=== PATIENT | female | born 1955 | race Caucasian/White ===

== ENCOUNTER 2018-06-17 02:32 | Outpatient (CLI) | payer MEDICAID, SELFPAY ==
[2018-06-17 10:44] LABS: HCT 38.1 % (36.0-46.0); HGB 12.6 g/dL (12.0-15.5); Mean Corp. HGB Concentration 33.1 g/dL (32.0-36.0); Mean Corpuscular Hemoglobin 30.6 pg (27.0-33.0); Mean Corpuscular Volume 92.5 fL (80-95); Mean Platelet Volume 10.8 fL (8.0-11.0); Platelet Count 163 x1000/uL (130-400); RBC 4.12 m/cumm (4.00-5.20); RBC Distribution Width 12.4 % (11.7-14.6); White Blood Cell Count 4.14 k/cumm (4.4-10.8)
[2018-06-17 11:01] LABS: VALPROIC ACID 33.1 ug/mL (50-100)
[2018-06-17 11:55] LABS: ALT 25 U/L (12-78); AST 22 U/L (15-37); Albumin 3.7 g/dL (3.4-5.0); Alkaline Phosphatase 86 U/L (46-116); Anion Gap 6.5 mmol/L (3-11); BUN 13 mg/dL (7-18); Bilirubin, Total 0.4 mg/dL (0.2-1.0); CO2 32.5 mmol/L (21.0-32.0); CREATININE 0.95 mg/dL (0.55-1.02); Calcium 9.8 mg/dL (8.5-10.1); Chloride 103 mmol/L (98-107); Cholesterol 199 mg/dL (50-200); Glucose 77 mg/dL (70-100); HDL Cholesterol 56 mg/dL (40-60); LDL CHOLESTEROL 120 mg/dL (<100); Potassium 4.5 mmol/L (3.5-5.1); Sodium 142 mmol/L (136-145); Total Protein 6.9 g/dL (6.4-8.2); Triglyceride 74 mg/dL (30-150)
== END 2018-06-17 02:52 ==
PROVIDERS: PCP Family Medicine; Visit Provider Family Medicine
DX: E78.00 Pure hypercholesterolemia, unspecified (principal); D61.818 Other pancytopenia; R56.9 Unspecified convulsions; Z51.81 Encounter for therapeutic drug level monitoring; Z79.899 Other long term (current) drug therapy
CPT/HCPCS: 36415; 80053; 80061; 83721; 85027; 80164

== ENCOUNTER 2018-08-07 10:47 | Outpatient (REF) | payer MEDICAID, SELFPAY | END 2018-08-07 11:07 | LOC: LBN 10:47 | PROVIDERS: PCP Family Medicine; Visit Provider Family Medicine | DX: N39.0 Urinary tract infection, site not specified (principal) | CPT/HCPCS: 87077; 87086; 87186 ==

== ENCOUNTER 2018-08-21 00:25 | Outpatient (CLI) | payer MEDICAID, SELFPAY ==
--- NOTE | 2018-08-21 13:19 | DI.MAMMO_ITS ---
SYMPTOMS/DIAGNOSIS: SCREENING, Z12.31 MAMMOGRAMS: Mammograms were interpreted according to the usual protocol including computer analysis with CAD system, tomosynthesis and C view imaging. Comparison is with the prior examinations. No suspicious masses or microcalcifications are seen. There is no definite evidence of malignancy. IMPRESSION: Negative mammogram. Routine screening is recommended. Breast density C, category 1. SA ASSESSMENT OF FINDINGS: Negative. Category 1. Patient will receive a letter notifying them of these results. Bi-RADS category C. The breasts are heterogeneously dense, which may obscure small masses.
== END 2018-08-21 00:45 ==
PROVIDERS: PCP Family Medicine; Visit Provider Family Medicine
DX: Z12.31 Encounter for screening mammogram for malignant neoplasm of breast (principal)
CPT/HCPCS: 77063; 77067

== ENCOUNTER 2018-09-30 09:49 | Outpatient (CLI) | payer MEDICAID, SELFPAY ==
--- NOTE | 2018-09-30 09:05 | DI.RAD_ITS ---
SYMPTOMS/DIAGNOSIS: S/P FALL, MAINLY THUMB PAIN, SWELLING, BRUISING, HAND PAIN, M79.642 LEFT HAND: There is no evidence of a fracture or dislocation .
== END 2018-09-30 10:09 ==
PROVIDERS: PCP Family Medicine; Visit Provider Psychiatry & Neurology Neurology
DX: M79.642 Pain in left hand (principal); M79.645 Pain in left finger(s)
CPT/HCPCS: 73130

== ENCOUNTER 2018-11-05 11:53 | Outpatient (CLI) | payer MEDICAID, SELFPAY ==
--- NOTE | 2018-11-05 11:49 | DI.RAD_ITS ---
SYMPTOMS/DIAGNOSIS: PAIN IN LEFT TOTAL KNEE ARTHROPLASTY S/P FALL LEFT KNEE: Two views. Comparison is 11/05/17. There are again seen postsurgical changes of a left total knee replacement. There is no evidence of hardware failure. The bones are intact. The soft tissues are unremarkable. IMPRESSION: Stable left TKR.
== END 2018-11-05 12:13 ==
PROVIDERS: PCP Family Medicine; Visit Provider Physician Assistant
DX: M25.562 Pain in left knee (principal); Z96.652 Presence of left artificial knee joint; Z91.81 History of falling
CPT/HCPCS: 73560

== ENCOUNTER 2019-06-17 10:28 | Outpatient (CLI) | payer MEDICAID, SELFPAY ==
[2019-06-17 13:01] LABS: HCT 36.6 % (36.0-46.0)
[2019-06-17 13:37] LABS: ALT 18 U/L (14-59); AST 15 U/L (15-37); Albumin 3.6 g/dL (3.4-5.0); Alkaline Phosphatase 77 U/L (46-116); Anion Gap 6.4 mmol/L (3-11); BUN 15 mg/dL (7-18); Bilirubin, Total 0.4 mg/dL (0.2-1.0); CO2 31.6 mmol/L (21.0-32.0); CREATININE 0.91 mg/dL (0.55-1.02); Calcium 9.1 mg/dL (8.5-10.1); Calculated LDL 123 mg/dL; Chloride 105 mmol/L (98-107); Cholesterol 187 mg/dL (<200); Ferritin 197 ng/mL (8-252); Glucose 88 mg/dL (74-106); HDL Cholesterol 55 mg/dL (40-60); Potassium 4.5 mmol/L (3.5-5.1); Sodium 143 mmol/L (136-145); Total Protein 6.6 g/dL (6.4-8.2); Triglyceride 47 mg/dL (<150)
[2019-06-17 13:38] LABS: Iron 119 ug/dL (50-170)
[2019-06-17 13:39] LABS: Total Iron Binding Capacity 252 ug/dL (250-450); Transferrin Sat 47 % (15-50)
== END 2019-06-17 10:48 ==
PROVIDERS: PCP Family Medicine; Visit Provider Family Medicine
DX: D50.9 Iron deficiency anemia, unspecified (principal); E78.00 Pure hypercholesterolemia, unspecified; E83.42 Hypomagnesemia
CPT/HCPCS: 36415; 80053; 80061; 82728; 83540; 83550; 83735; 85014; 85018

== ENCOUNTER 2019-07-29 11:11 | Emergency (ER) | payer MEDICAID, SELFPAY ==
[2019-07-29 11:19] VITALS: BP 139/73; PULSE 80; RESP 16; TEMP 36.4; O2SAT 98
--- NOTE | 2019-07-29 11:25 | ED.GENADUL_ITS ---
Discharge Plan Disposition Patient Disposition: HOME Condition: Stable Discharge Details Chief Complaint: Chest/Rib Clinical Impression: Chest wall contusion Primary Care Provider: Leeann Meléndez ED Provider: Alexey Vargas Home Meds and New Rx's Prescriptions: Continued omeprazole 20 mg capsule,delayed release(DR/EC) 20 mg PO DAILY Qty: 90 RF: 4 divalproex [Depakote ER] 500 mg tablet extended release 24 hr 500 mg PO HS Qty: 90 RF: 4 gabapentin 100 mg capsule 100 mg PO BID Qty: 180 RF: 4 meloxicam [Mobic] 15 mg tablet 15 mg PO DAILY PRN (Reason: pain) Qty: 60 RF: 3 cholecalciferol (vitamin D3) 2,000 unit tablet 2,000 unit PO DAILY Qty: 90 RF: 4 ferrous sulfate 325 mg (65 mg iron) tablet 325 mg PO DAILY Qty: 90 RF: 3 cyanocobalamin (vitamin B-12) [Vitamin B-12] 1,000 mcg tablet extended release 1,000 mcg PO DAILY Qty: 90 RF: 4 pravastatin [Pravachol] 20 mg tablet 20 mg PO DAILY Qty: 90 RF: 4 calcium carbonate [Calcium 600] 600 mg calcium (1,500 mg) tablet 600 mg PO BID Qty: 180 RF: 4 Discharge Instructions Instructions: Contusion in Adults (ED) Additional Instructions: Apply ice to area to reduce pain and discomfort. Remove Lidoderm patch in 12 hours time. Continue your regular medications including meloxicam. You may also use Tylenol for which she received a dose approximately 12 noon. Return for any worsening or acute concern. Medical Decision Making 64-year-old female struck by a shopping cart in the right anterior chest approximate 2 hours prior to presentation. Is a dull, achy, constant pain that is worse with movement and deep breath. Her vital signs are normal including normal pulse and oxygenation. Differential doses includes contusion, strain, must exclude rib fracture. Patient given acetaminophen for pain. Referred for x-ray with rib views. No e vidence of acute finding. Discussed conservative management the patient and she is appropriate for discharge home. ECG Data Attestation: I personally reviewed and interpreted this ECG (s) as follows: Interpretation: Normal sinus rhythm, rate of 77, QRS is narrow, no ST segment elevation present, QTC of 407. HPI General Mode of arrival: ambulatory . Date/Time Provider Initiated Documentation: 07/29/19 11:20 . Limitations to Documentation: no limitations . Information obtained by: patient . History of Present Illness 64 year old F presents to the emergency department with the chief complaint of Right anterior chest pain after struck by shopping cart, described as moderate, Quality is described as dull, and is localized to the chest and right. Patient reports no radiation. Patient started experiencing this hour(s) and it has been constant. No relieving factors improve symptom(s), No exacerbating factors reported . Patient notes chest pain; denies syncope and weakness. Patient did receive the following treatments prior to arrival, none Related Data Home Medications Medication Instructions Recorded Confirmed omeprazole 20 mg capsule,delayed 20 mg PO DAILY #90 tab-cap 02/05/19 06/17/19 release Depakote ER 500 mg tablet,extended 500 mg PO HS #90 tab-cap NS 03/09/19 07/29/19 release cholecalciferol (vitamin D3) 2,000 2,000 unit PO DAILY #90 tab-cap 03/09/19 06/17/19 unit tablet gabapentin 100 mg capsule 100 mg PO BID #180 tab-cap 03/09/19 06/17/19 meloxicam 15 mg tablet 15 mg PO DAILY PRN #60 tab 03/09/19 06/17/19 ferrous sulfate 325 mg (65 mg 325 mg PO DAILY #90 tab 05/26/19 06/17/19 iron) tablet cyanocobalamin (vitamin B-12) 1,000 mcg PO DAILY #90 tab-cap 07/06/19 1,000 mcg tablet,extended release pravastatin 20 mg tablet 20 mg PO DAILY #90 tab-cap 07/06/19 calcium carbonate 600 mg calcium 600 mg PO BID #180 tab 07/12/19 (1,500 mg) tablet Previous Rx's Medication Instructions Recorded omeprazole 20 mg capsule,delayed 20 mg PO DAILY #90 tab-cap 02/05/19 release Depakote ER 500 mg tablet,extended 500 mg PO HS #90 tab-cap NS 03/09/19 release cholecalciferol (vitamin D3) 2,000 2,000 unit PO DAILY #90 tab-cap 03/09/19 unit tablet gabapentin 100 mg capsule 100 mg PO BID #180 tab-cap 03/09/19 meloxicam 15 mg tablet 15 mg PO DAILY PRN #60 tab 03/09/19 ferrous sulfate 325 mg (65 mg 325 mg PO DAILY #90 tab 05/26/19 iron) tablet cyanocobalamin (vitamin B-12) 1,000 mcg PO DAILY #90 tab-cap 07/06/19 1,000 mcg tablet,extended release pravastatin 20 mg tablet 20 mg PO DAILY #90 tab-cap 07/06/19 calcium carbonate 600 mg calcium 600 mg PO BID #180 tab 07/12/19 (1,500 mg) tablet Allergies Allergy/AdvReac Type Severity Reaction Status Date / Time Penicillins Allergy Intermediate Nausea Unverified 07/29/19 11:26 amoxicillin AdvReac Mild GI UPSET Unverified 07/29/19 11:26 aspirin AdvReac Mild UPSET Unverified 07/29/19 11:26 STOMACH SMOKE Allergy Unknown Uncoded 07/29/19 11:26 General Stated Complaint: Chest/Rib MÓNICA: 3 Review of Systems Narrative: 6 systems reviewed and otherwise negative. No other injury. States that she has been taking her prescribed medications. [facility] Surgical History (Updated 03/06/19 @ 10:48 by Jude Adhikari) Ankle surgery right Arm Surgery right Bilateral salpingectomy with oophorectomy EGD - IV Sedation Laparoscopic, Ovarian Cystectomy Replacement of total knee joint right,left Family History Mother No problems noted. Grandfather No problems noted. Grandfather No problems noted. Grandmother No problems noted. Grandmother No problems noted. Social History Smoking/Tobacco Use Status: Former Tobacco Use Alcohol Intake: never Drug use: Never Substance use type: does not use Do you feel safe at home: Yes Do you feel safe in your relationship?: Yes Exam Narrative Exam Narrative: GEN: awake, alert, oriented 3. Pleasant, well groomed, interactive. HEAD: Normocephalic, atraumatic ENT: Mucous membranes moist, oropharynx unremarkable, External ear exam unremarkable EYES: PERRL, EOMI NECK: Full ROM, no KRIS, no menigismus CHEST/RESP: Right anterior chest wall tender to palpation, clear to auscultation bilateral, no wheeze/rhonchi/rales CARDIOVASCULAR: RRR, no murmur, rub sai. 2+ Rad pulse bilateral ABDOMEN: Soft, nontender, no mass. +Bowel sounds EXT: Full ROM, no edema, no rash Neuro: Grossly normal neurologic exam, conversant, interactive. Psych: Speech fluent, thoughts congruent, affect normal Course Vital Signs Vital signs: Vital Signs Temperature 36.4 C L 07/29/19 11:19 Pulse 80 07/29/19 11:19 Respiratory Rate 16 07/29/19 11:19 Blood Pressure 139/73 07/29/19 11:19 Pulse Oximetry 98 07/29/19 11:19 Temperature 36.4 C L 07/29/19 11:19 Temperature Source Temporal Artery Scan 07/29/19 11:19 Pulse 80 07/29/19 11:19 Respiratory Rate 16 07/29/19 11:19 Blood Pressure 139/73 07/29/19 11:19 Blood Pressure Position Supine 07/29/19 11:19 Pulse Oximetry 98 07/29/19 11:19 Oxygen Delivery Method Room Air 07/29/19 11:19 Oxygen Flow Rate 0 07/29/19 11:19 Pain Level 8 07/29/19 11:19
[2019-07-29] MEDS: Acetaminophen 500 MG TAB 1000 MG PO (11:44)
--- NOTE | 2019-07-29 11:55 | DI.RAD_ITS ---
EXAM: XR RIBS LT W PA LAT CHEST INDICATION: Right anterior rib pain after contusion. COMPARISON: No exams were available for comparison TECHNIQUE: 2D digital imaging was performed. FINDINGS: The heart size is normal. The lungs are clear. A marker was placed over the lower right ribs in th e area the patient's pain. No rib fracture or pneumothorax is seen. The thoracic spine appears inta ct. IMPRESSION: Negative chest and right ribs.
[2019-07-29] MEDS: Lidocaine 5% Patch 1 PATCH TP (12:25)
== END 2019-07-29 12:30 | disposition home or self-care (01) ==
PROVIDERS: Emergency Provider Emergency Medicine; PCP Family Medicine
DX: S20.211A Contusion of right front wall of thorax, initial encounter (principal); W22.8XXA Striking against or struck by other objects, initial encounter
CPT/HCPCS: 93005; 99284; 71046; 71100; 93010; 99283

== ENCOUNTER 2019-09-17 00:19 | Outpatient (CLI) | payer MEDICAID, SELFPAY ==
--- NOTE | 2019-09-17 11:35 | DI.MAMMO_ITS ---
EXAM: MG MAMMO SCREENING CLINICAL HISTORY: screening, Z12.39 TECHNIQUE: Mammograms were interpreted according to the usual protocol including computer analysis w [employer] CAD system, tomosynthesis and C-view imaging. COMPARISON: August 2018 FINDINGS: The breasts are of moderate density with fairly symmetrical distribution of fibroglandular tissue. N o dominant mass or clumped microcalcification is identified in either breast. Current examination is compared with previous examinations including August 2018 and there has been no gross interval terell nge in appearance in comparison with the previous studies. IMPRESSION: No specific evidence of malignancy at this time. Routine screening examinations are suggested at year ly intervals in this age group according to the ACS/ACR guidelines. Category 1, breast density catego ry B. BI-RADS Cat 1 - Negative Breast Density - Category B - Scattered areas of fibroglandular density
== END 2019-09-17 00:39 ==
PROVIDERS: PCP Family Medicine; Visit Provider Family Medicine
DX: Z12.31 Encounter for screening mammogram for malignant neoplasm of breast (principal)
CPT/HCPCS: 77063; 77067

== ENCOUNTER 2019-12-03 02:00 | Outpatient (CLI) | payer MEDICAID, SELFPAY ==
--- NOTE | 2019-12-03 14:30 | DI.DEXA_ITS ---
EXAM: XR DEXA BONE DENSITY W/WO JASPER CLINICAL HISTORY: osteopenia on anti seizure medication M85.80 TECHNIQUE: COMPARISON: CR RT HIP COMPLETE AP PELVIS from 03/29/2014 FINDINGS: DEXA scan was performed according to the usual protocol. Please see accompanying data sheets. Findi ngs for left hip scanning are T-score -2.1 with left femoral neck T-score -2.3. Prior study of 2016 showed left hip T-score -2.0. Lumbar spine shows scanning shows T-score -1.2. Prior study of August 17 showed lumbar T-score -1. 4. Left forearm scanning shows T-score -1.5, prior study of 2016 showed left forearm T-score -0.9. IMPRESSION: Findings consistent with osteopenia according to the WHO criteria. The lateral vertebral scanogram shows no evidence of a vertebral compression fracture.
== END 2019-12-03 02:20 ==
PROVIDERS: PCP Family Medicine; Visit Provider Family Medicine
DX: M85.88 Other specified disorders of bone density and structure, other site (principal); Z79.899 Other long term (current) drug therapy
CPT/HCPCS: 77080

== ENCOUNTER 2019-12-15 10:03 | Outpatient (CLI) | payer MEDICAID, SELFPAY ==
--- NOTE | 2019-12-15 09:45 | DI.RAD_ITS ---
EXAM: XR KNEE LT 2V AP,LAT CLINICAL HISTORY: pain. TECHNIQUE: 2D digital imaging was performed. COMPARISON: CR XR knee LT 2V AP,lat from 11/05/2018 FINDINGS: There has been no change in the total knee prosthesis or surrounding bone. DATA REPOSITORY: RADIATION DOSE DELIVERED:
--- NOTE | 2019-12-15 09:45 | DI.RAD_ITS ---
EXAM: XR HIP LT COMPLETE AP PELVIS INDICATION: pain. COMPARISON: CR RT HIP COMPLETE AP PELVIS from 03/29/2014 CR XR DEXA BONE DENSITY W/WO JASPER from 12/03/2019 TECHNIQUE: 2D digital imaging was performed. FINDINGS: There is mild right hip joint space narrowing. The left hip joint space base shows minimal narrowin g. There is mild to moderate bilateral acetabular spurring. There is mild spurring at the margin of the right femoral head. Spurring is noted in the inferior SI joints, left greater than right. IMPRESSION: Slyt-os-gnacnxil degenerative changes of both hips, in right greater than left. DATA REPOSITORY: RADIATION DOSE DELIVERED:
== END 2019-12-15 10:23 ==
PROVIDERS: PCP Family Medicine; Referring Provider Family Medicine; Visit Provider Orthopaedic Surgery
DX: M25.562 Pain in left knee (principal); Z96.652 Presence of left artificial knee joint; M25.552 Pain in left hip; M53.3 Sacrococcygeal disorders, not elsewhere classified; M16.0 Bilateral primary osteoarthritis of hip
CPT/HCPCS: 73502; 73560

== ENCOUNTER 2020-02-16 10:26 | Outpatient (CLI) | payer MEDICAID, SELFPAY ==
--- NOTE | 2020-02-16 10:15 | DI.RAD_ITS ---
EXAM: XR WRIST RT COMPLETE CLINICAL HISTORY: pain. TECHNIQUE: 2D digital imaging was performed. COMPARISON: CR XR hand LT complete from 09/30/2018 FINDINGS: BONES: No acute fracture is present. No bony destructive lesion is seen. There is slight deformity of the distal radius which could be secondary to a remote fracture. There are minimal degenerative terell nges. JOINTS: The carpal bones are normally aligned. SOFT TISSUE: Normal. IMPRESSION: No acute abnormality. DATA REPOSITORY: RADIATION DOSE DELIVERED:
== END 2020-02-16 10:46 ==
PROVIDERS: PCP Family Medicine; Referring Provider Family Medicine; Visit Provider Orthopaedic Surgery
DX: M25.531 Pain in right wrist (principal)
CPT/HCPCS: 73110

== ENCOUNTER 2020-10-10 10:19 | Outpatient (CLI) | payer MEDICAID, SELFPAY ==
[2020-10-11 14:16] LABS: COVID-19 RT-PCR UVMMC Result Negative (Negative)
== END 2020-10-10 10:20 | disposition home or self-care (01) ==
PROVIDERS: PCP Family Medicine; Visit Provider Family Medicine
DX: Z20.822 Contact with and (suspected) exposure to COVID-19 (principal)
CPT/HCPCS: U0003

== ENCOUNTER 2020-11-21 02:19 | Outpatient (CLI) | payer MEDICAID, SELFPAY ==
[2020-11-21 13:05] LABS: HCT 36.7 % (36.0-46.0); HGB 12.2 g/dL (11.2-15.7); MCHC 33.2 % (32.0-36.0); MCV 90.2 fL (80-95); Platelet Count 177 10^3/uL (130-400); RBC 4.07 10^6/uL (3.93-5.22); WBC 4.62 10^3/uL (4.4-10.8)
[2020-11-21 14:14] LABS: ALT 21 U/L (14-59); AST 23 U/L (15-37); Albumin 3.7 g/dL (3.4-5.0); Alkaline Phosphatase 72 U/L (46-116); Anion Gap 9.7 mmol/L (3-11); BUN 12 mg/dL (7-18); Bilirubin, Total 0.5 mg/dL (0.2-1.0); CO2 30.3 mmol/L (21.0-32.0); CREATININE 0.9 mg/dL (0.55-1.02); Calculated LDL 170 mg/dL (<100); Chloride 105 mmol/L (98-107); Cholesterol 244 mg/dL (<200); Glucose 91 mg/dL (74-106); HDL Cholesterol 62 mg/dL (40-60); Potassium 3.5 mmol/L (3.5-5.1); Sodium 145 mmol/L (136-145); Triglyceride 62 mg/dL (<150)
== END 2020-11-21 02:20 | disposition home or self-care (01) ==
PROVIDERS: Nurse Practitioner Family; PCP Family Medicine; Visit Provider Family Medicine
DX: I10 Essential (primary) hypertension (principal); E78.00 Pure hypercholesterolemia, unspecified; D64.9 Anemia, unspecified
CPT/HCPCS: 36415; 80053; 80061; 85027

== ENCOUNTER 2020-12-23 03:26 | Outpatient (CLI) | payer MEDICAID, SELFPAY ==
--- NOTE | 2020-12-23 07:10 | DI.MAMMO_ITS ---
Exam(s) MAMMO SCREENING EXAM: MAMMO SCREENING CLINICAL HISTORY: screening,z12.39 TECHNIQUE: Mammograms were interpreted according to the usual protocol including computer analysis w [employer] CAD system, tomosynthesis and C-view imaging. COMPARISON: 2010 through 2019 FINDINGS: The breasts are composed of heterogeneously dense fibroglandular densities, Breast Density category C . No suspicious masses or suspicious microcalcifications are seen. No skin thickening or abnormal axillary lymph nodes are seen. There has been no significant change from prior exams. IMPRESSION: BI-RADS Category 1, Negative mammogram. Yearly screening mammography is recommended. Breast Density Category C, heterogeneously Dense. The mammogram demonstrates the patient's breast tissue is dense. Dense breast tissue is very common a nd is not abnormal but dense breast tissue can make it harder to find cancer on a mammogram. Also, de nse breast tissue may increase breast cancer risk. This information about the result of the mammogram report was provided to the patient to raise their awareness. Use this report when you speak with the patient about their risks for breast cancer, which includes their family history. At that time, you may recommend additional screening tests (Ultrasound or MRI) as they might be useful based on their r isk. A negative radiographic report should not delay biopsy if a dominant or clinically suspicious mass is present. Up to ten percent of cancers are not identified on mammography. A negative report may reinforce clinical impression. Adenosis and dense breasts may obscure an underlying neoplasm. False positive reports average 6 to 10%.
== END 2020-12-23 03:46 ==
PROVIDERS: PCP Family Medicine; Visit Provider Nurse Practitioner Family
DX: Z12.31 Encounter for screening mammogram for malignant neoplasm of breast (principal)
CPT/HCPCS: 77063; 77067

== ENCOUNTER 2021-04-12 09:32 | Outpatient (CLI) | payer MEDICAID, SELFPAY ==
[2021-04-12 12:58] LABS: Iron 150 ug/dL (50-170); Total Iron Binding Capacity 275 ug/dL (250-450); Transferrin Sat 55 % (15-50)
[2021-04-12 13:24] LABS: Calculated LDL 142 mg/dL (<100); Cholesterol 217 mg/dL (<200); Ferritin 339 ng/mL (8-252); HDL Cholesterol 64 mg/dL (40-60); Magnesium 1.6 mg/dL (1.8-2.4); Triglyceride 59 mg/dL (<150); Vitamin B12 1865 pg/mL (193-986)
== END 2021-04-12 09:33 | disposition home or self-care (01) ==
LOC: LOS 09:32
PROVIDERS: Family Medicine; PCP Family Medicine; Visit Provider Family Medicine
DX: E83.42 Hypomagnesemia; E61.1 Iron deficiency; E78.5 Hyperlipidemia, unspecified; D51.0 Vitamin B12 deficiency anemia due to intrinsic factor deficiency
CPT/HCPCS: 36415; 80061; 82607; 82728; 83540; 83550; 83735

== ENCOUNTER 2022-02-12 11:36 | Outpatient (CLI) | payer OTHER, MEDICAID, SELFPAY ==
--- NOTE | 2022-02-12 10:45 | DI.RAD_ITS ---
Exam(s) XR KNEE LT 2V AP,LAT EXAM: XR KNEE LT 2V AP,LAT CLINICAL HISTORY: left knee pain. TECHNIQUE: 2D digital imaging was performed. COMPARISON: CR XR KNEE LT 2V AP,LAT from 12/15/2019 FINDINGS: 3 views Stable position alignment of the components of the prosthesis. No fracture or loosening evident. IMPRESSION: DATA REPOSITORY: RADIATION DOSE DELIVERED:
== END 2022-02-12 11:37 | disposition home or self-care (01) ==
LOC: DIORS 11:37
PROVIDERS: PCP Family Medicine; Referring Provider Family Medicine; Visit Provider Physician Assistant
DX: M25.562 Pain in left knee (principal); M70.52 Other bursitis of knee, left knee; T84.84XS Pain due to internal orthopedic prosthetic devices, implants and grafts, sequela; M21.371 Foot drop, right foot; M21.372 Foot drop, left foot; Z96.653 Presence of artificial knee joint, bilateral
CPT/HCPCS: 99214; 73560

== ENCOUNTER → 2022-08-20 11:03 | Outpatient (BNVA) | payer OTHER, MEDICAID, SELFPAY | PROVIDERS: PCP Family Medicine; Referring Provider Family Medicine; Visit Provider Student in an Organized Health Care Education/Training Program | DX: M70.61 Trochanteric bursitis, right hip (principal) | CPT/HCPCS: 99213 ==

== ENCOUNTER 2022-08-28 09:26 | Outpatient (CLI) | payer OTHER, MEDICAID, SELFPAY ==
[2022-08-28 12:25] LABS: Abs Immature Grans 0.01 10^3/uL (0.0-0.06); Absolute Basophil Count 0.02 10^3/uL (0.0-0.2); Absolute Eosinophil Count 0.02 10^3/uL (0.0-0.7); Absolute Lymphocyte Count 1.07 10^3/uL (1.2-3.4); Absolute Monocyte Count 0.31 10^3/uL (0.1-0.8); Absolute Neutrophil Count 1.91 10^3/uL (1.2-6.7); Basophils % 0.6; Eosinophils % 0.6; HCT 33.3 % (36.0-46.0); HGB 11.6 g/dL (11.2-15.7); Immature Grans % 0.3; MCH 30.7 pg (27.0-33.0); MCHC 34.8 % (32.0-36.0); MCV 88 fL (80-95); MPV 11.6 fL (8.0-11.0); Monocytes % 9.3; Neutrophils % 57.2; Platelet Count 133 10^3/uL (130-400); RBC 3.78 10^6/uL (3.93-5.22); RDW 12.9 % (11.7-14.6); RDW-SD 41.5 fL; WBC 3.34 10^3/uL (4.4-10.8)
[2022-08-28 12:51] LABS: Iron 97 ug/dL (50-170); Total Iron Binding Capacity 328 ug/dL (250-450); Transferrin Sat 30 % (15-50)
[2022-08-28 13:23] LABS: ALT 14 U/L (14-59); AST 22 U/L (15-37); Albumin 3.2 g/dL (3.4-5.0); Alkaline Phosphatase 68 U/L (46-116); BUN 15 mg/dL (7-18); Bilirubin, Total 0.4 mg/dL (0.2-1.0); CREATININE 0.9 mg/dL (0.55-1.02); Calcium 9.5 mg/dL (8.5-10.1); Calculated LDL 115 mg/dL (<100); Chloride 92 mmol/L (98-107); Cholesterol 196 mg/dL (<200); Estimated GFR 70.95 (mL/min/1.73m2); Glucose 95 mg/dL (74-106); HDL Cholesterol 68 mg/dL (40-60); Potassium 3.3 mmol/L (3.5-5.1); Sodium 133 mmol/L (136-145); Total Protein 6.8 g/dL (6.4-8.2); Triglyceride 67 mg/dL (<150); Vitamin B12 612 pg/mL (193-986)
== END 2022-08-28 09:27 | disposition home or self-care (01) ==
LOC: LOS 09:27
PROVIDERS: PCP Family Medicine; Visit Provider Family Medicine
DX: D51.0 Vitamin B12 deficiency anemia due to intrinsic factor deficiency (principal); D61.818 Other pancytopenia; E78.00 Pure hypercholesterolemia, unspecified; K76.0 Fatty (change of) liver, not elsewhere classified; Z00.00 Encounter for general adult medical examination without abnormal findings
CPT/HCPCS: 36415; 80053; 80061; 82607; 83540; 83550; 85025

== ENCOUNTER → 2022-10-01 10:39 | Outpatient (BNVA) | payer OTHER, MEDICAID, SELFPAY | PROVIDERS: PCP Family Medicine; Referring Provider Family Medicine; Visit Provider Psychiatry & Neurology Neurology | DX: R56.9 Unspecified convulsions (principal); R29.898 Other symptoms and signs involving the musculoskeletal system; M85.832 Other specified disorders of bone density and structure, left forearm; G43.009 Migraine without aura, not intractable, without status migrainosus | CPT/HCPCS: 99214 ==

== ENCOUNTER 2022-10-15 13:35 | Outpatient (CLI) | payer OTHER, MEDICAID, SELFPAY ==
--- NOTE | 2022-10-15 13:00 | DI.RAD_ITS ---
Exam(s) XR HIP RT COMPLETE AP PELVIS EXAM: XR HIP RT COMPLETE AP PELVIS CLINICAL HISTORY: right hip pain. TECHNIQUE: 2D digital imaging was performed. COMPARISON: CR XR HIP LT COMPLETE AP PELVIS from 12/15/2019 FINDINGS: Two views: No evidence of fracture. Mild hip joint space narrowing. Small osteophyte off lateral aspect of the right hip femoral head, unchanged. Bone density normal. No osseous lesions. IMPRESSION: Mild degenerative changes in the hips, again right more so than left but findings appear unchanged ra diographically from November 2019. DATA REPOSITORY: RADIATION DOSE DELIVERED:
== END 2022-10-15 13:36 | disposition home or self-care (01) ==
LOC: DIORS 13:35
PROVIDERS: PCP Family Medicine; Referring Provider Family Medicine; Visit Provider Student in an Organized Health Care Education/Training Program
DX: M70.61 Trochanteric bursitis, right hip; M25.751 Osteophyte, right hip; M16.11 Unilateral primary osteoarthritis, right hip
CPT/HCPCS: 99213; 73502

== ENCOUNTER 2023-01-21 04:44 | Outpatient (CLI) | payer OTHER, MEDICAID, SELFPAY ==
[2023-01-21 12:56] LABS: Anion Gap 5.6 mmol/L (3-11); BUN 18 mg/dL (7-18); CO2 36.4 mmol/L (21.0-32.0); CREATININE 0.9 mg/dL (0.55-1.02); Calcium 9.2 mg/dL (8.5-10.1); Chloride 99 mmol/L (98-107); Estimated GFR 70.51 (mL/min/1.73m2); Glucose 93 mg/dL (74-106); Potassium 3.5 mmol/L (3.5-5.1); Sodium 141 mmol/L (136-145); Vitamin B12 346 pg/mL (193-986)
== END 2023-01-21 04:45 | disposition home or self-care (01) ==
LOC: LOS 04:45
PROVIDERS: PCP Family Medicine; Visit Provider Family Medicine
DX: E87.6 Hypokalemia; I10 Essential (primary) hypertension
CPT/HCPCS: 36415; 80048; 82607

== ENCOUNTER → 2023-04-08 04:01 | Outpatient (CLI) | payer OTHER, MEDICAID, SELFPAY ==
--- NOTE | 2023-04-08 07:45 | DI.MAMMO_ITS ---
Exam(s) MG MAMMO SCREENING 60 MIN DUR EXAM: MAMMO SCREENING 60 MIN DUR CLINICAL HISTORY: screening,Z12.39 TECHNIQUE: Mammograms were interpreted according to the usual protocol including computer analysis w [employer] CAD system, tomosynthesis and C-view imaging. COMPARISON: 2013 through 2020 FINDINGS: Positioning is mildly suboptimal due to patient body habitus and condition. The breasts are composed of heterogeneously dense fibroglandular densities, Breast Density category C . No suspicious masses or suspicious microcalcifications are seen. No skin thickening or abnormal axillary lymph nodes are seen. There has been no significant change from prior exams. IMPRESSION: BI-RADS Category 1, Negative mammogram. Yearly screening mammography is recommended. Breast Density Category C, heterogeneously Dense. The mammogram demonstrates the patient's breast tissue is dense. Dense breast tissue is very common a nd is not abnormal but dense breast tissue can make it harder to find cancer on a mammogram. Also, de nse breast tissue may increase breast cancer risk. This information about the result of the mammogram report was provided to the patient to raise their awareness. Use this report when you speak with the patient about their risks for breast cancer, which includes their family history. At that time, you may recommend additional screening tests (Ultrasound or MRI) as they might be useful based on their r isk. A negative radiographic report should not delay biopsy if a dominant or clinically suspicious mass is present. Up to ten percent of cancers are not identified on mammography. A negative report may reinforce clinical impression. Adenosis and dense breasts may obscure an underlying neoplasm. False positive reports average 6 to 10%.
== END ==
PROVIDERS: PCP Family Medicine; Visit Provider Family Medicine
DX: Z12.31 Encounter for screening mammogram for malignant neoplasm of breast (principal)
CPT/HCPCS: 77063; 77067

== ENCOUNTER 2023-05-31 09:46 | Outpatient (CLI) | payer OTHER, MEDICAID, SELFPAY ==
--- NOTE | 2023-05-31 09:30 | DI.RAD_ITS ---
Exam(s) XR KNEE LT 3V AP,LAT,JENNIFER EXAM: XR KNEE LT 3V AP,LAT,JENNIFER CLINICAL HISTORY: eval L TKA, anterior knee pain. TECHNIQUE: 2D digital imaging was performed. Three images were obtained. Merchant's, AP and lateral views were obtained. COMPARISON: CR XR KNEE LT 2V AP,LAT from 02/12/2022 FINDINGS: BONES: There are stable post operative changes of a left total knee replacement present. No fracture or dislocation. JOINTS: The orthopedic hardware is in good position. No evidence of hardware loosening. SOFT TISSUE: Dystrophic calcifications are seen in the soft tissues. IMPRESSION: Stable postoperative changes. DATA REPOSITORY: RADIATION DOSE DELIVERED:
--- NOTE | 2023-05-31 09:30 | DI.RAD_ITS ---
Exam(s) XR KNEE RT 3V AP,LAT,JENNIFER EXAM: XR KNEE RT 3V AP,LAT,JENNIFER CLINICAL HISTORY: eval painful R TKA. TECHNIQUE: 2D digital imaging was performed. Three images were obtained. AP, lateral and merchant's views were obtained. COMPARISON: CR KNEES BILAT AP LATERALS from 05/19/2014 FINDINGS: BONES: There are stable post operative changes of a right total knee replacement present. No fractur e or dislocation. There is an old healed proximal fibular fracture. JOINTS: The orthopedic hardware is in good position. No evidence of hardware loosening. SOFT TISSUE: Normal. IMPRESSION: Stable postoperative changes. DATA REPOSITORY: RADIATION DOSE DELIVERED:
== END 2023-05-31 09:47 | disposition home or self-care (01) ==
LOC: DIORS 09:47
PROVIDERS: PCP Family Medicine; Referring Provider Family Medicine; Visit Provider Student in an Organized Health Care Education/Training Program
DX: Z96.651 Presence of right artificial knee joint; Z96.652 Presence of left artificial knee joint; T84.84XD Pain due to internal orthopedic prosthetic devices, implants and grafts, subsequent encounter
CPT/HCPCS: 73562; 99214

== ENCOUNTER → 2023-08-02 10:06 | Outpatient (BNVA) | payer OTHER, MEDICAID, SELFPAY | PROVIDERS: PCP Family Medicine; Referring Provider Family Medicine; Visit Provider Student in an Organized Health Care Education/Training Program | DX: T84.84XA Pain due to internal orthopedic prosthetic devices, implants and grafts, initial encounter (principal); Z96.651 Presence of right artificial knee joint; Z96.652 Presence of left artificial knee joint | CPT/HCPCS: 99213 ==

== ENCOUNTER → 2023-08-28 02:01 | Outpatient (CLI) | payer OTHER, MEDICAID, SELFPAY ==
--- NOTE | 2023-08-28 06:30 | DI.NM_ITS ---
Exam(s) NM BONE SCAN 3 PHASE EXAM: NM BONE SCAN 3 PHASE CLINICAL HISTORY: Painful B/L TKR,T84.84XA,Z96.652,Z96.651. TECHNIQUE: Injected Dose: 25 mCi Tc-99m MDP COMPARISON: CR XR KNEE LT 3V AP,LAT,JENNIFER from 05/31/2023 CR XR KNEE RT 3V AP,LAT,JENNIFER from 05/31/2023 FINDINGS: Perfusion: Symmetric. Blood Pool: Symmetric. Photopenic areas at the knee bilaterally consistent with bilateral knee pros theses. Delayed: No focal area of intense suspicious uptake is seen. Minimally increased activity around th e knee prosthesis which is a common finding. Small focal area of mildly increased activity in the left lower lumbar spine, likely secondary to deg enerative changes. Skeletal uptake otherwise unremarkable. IMPRESSION: No findings to suggest infection or loosening of the knee prostheses. DATA REPOSITORY:
== END ==
PROVIDERS: PCP Family Medicine; Visit Provider Physician Assistant
DX: T84.84XA Pain due to internal orthopedic prosthetic devices, implants and grafts, initial encounter (principal); Z96.651 Presence of right artificial knee joint; Z96.652 Presence of left artificial knee joint
CPT/HCPCS: 78315

== ENCOUNTER → 2023-09-16 09:44 | Outpatient (BNVA) | payer OTHER, MEDICAID, SELFPAY | PROVIDERS: PCP Family Medicine; Referring Provider Family Medicine; Visit Provider Student in an Organized Health Care Education/Training Program | DX: T84.84XA Pain due to internal orthopedic prosthetic devices, implants and grafts, initial encounter (principal); Z96.652 Presence of left artificial knee joint | CPT/HCPCS: 99214 ==

== ENCOUNTER → 2023-10-07 09:01 | Outpatient (BNVA) | payer OTHER, MEDICAID, SELFPAY | PROVIDERS: PCP Family Medicine; Visit Provider Psychiatry & Neurology Neurology | DX: R13.10 Dysphagia, unspecified (principal); F44.7 Conversion disorder with mixed symptom presentation; R56.9 Unspecified convulsions; G43.009 Migraine without aura, not intractable, without status migrainosus; R29.898 Other symptoms and signs involving the musculoskeletal system | CPT/HCPCS: 99214 ==

== ENCOUNTER → 2023-12-16 11:26 | Outpatient (BNVA) | payer OTHER, MEDICAID, SELFPAY | PROVIDERS: PCP Family Medicine; Referring Provider Family Medicine; Visit Provider Psychiatry & Neurology Neurology | DX: R56.9 Unspecified convulsions (principal); R29.898 Other symptoms and signs involving the musculoskeletal system; G43.009 Migraine without aura, not intractable, without status migrainosus; R13.10 Dysphagia, unspecified; F44.7 Conversion disorder with mixed symptom presentation; M79.642 Pain in left hand | CPT/HCPCS: 99214 ==

== ENCOUNTER → 2023-12-17 09:26 | Outpatient (BNVA) | payer OTHER, MEDICAID, SELFPAY | PROVIDERS: PCP Family Medicine; Referring Provider Family Medicine; Visit Provider Psychiatry & Neurology Neurology | DX: R56.9 Unspecified convulsions (principal); G43.009 Migraine without aura, not intractable, without status migrainosus; R29.898 Other symptoms and signs involving the musculoskeletal system; R13.10 Dysphagia, unspecified; F44.7 Conversion disorder with mixed symptom presentation; M85.89 Other specified disorders of bone density and structure, multiple sites | CPT/HCPCS: 95908; 99214 ==

== ENCOUNTER 2024-01-17 00:59 | Outpatient (CLI) | payer OTHER, MEDICAID, SELFPAY ==
--- OUTSIDE RECORDS SUMMARY | 2024-01-17 01:00 | XMS_ITS | Encounter Summary ---
Author Organization [facility] Address [facility] [place] [address] Care Team Providers Care Picked Edge Sewing Machine Operator Name Role Phone Harriet Foley MD Primary Care Provider [phone] Encounter Details Date Type Department Care Team (Latest Contact Info) Description 11/07/2021 3:30 PM EDT TH Visit (TeleHealth) Gastroenterology at [facility] [place] [address] Keron Wilkerson, SALES DEPARTMENT MANAGER [facility] [place] [address] Dysphagia, unspecified type; Regurgitation of food; Odynophagia; Constipation, unspecified constipation type Social History Tobacco Use Types Packs/Day Years Used Date Smoking Tobacco: Former Cigarettes 3 4 Smokeless Tobacco: Never Comments:Quit in 1973 Alcohol Use Standard Drinks/Week Comments No 0 (1 standard drink = 0.6 oz pur e alcohol) Sex and Gender Information Value Date Recorded Sex Assigned at Not on file Gender Identity Not on file Sexual Orientation Not on file documented as of this encounter Patient Instructions * Patient Instructions* Keron Wilkerson, PRAVEEN - 11/07/2021 3:43 PM EDT Dear Maria Del Carmen, I have listed the recommendations we discussed below. Please call the Radiology department to schedule imaging tests at [phone]. Please call the GI department to schedule the investigations if you do not hear from us within 1 week: Clinic [phone] Motility Lab scheduling [phone] Endoscopy scheduling- [phone] Diagnostics: -Esophageal manometry (scheduled for 03/06/2022) -Barium Swallow -Anorectal manometry Therapeutics: -Dysphagia handout -Please seek emergency medical attention at nearest emergency department if you experience chest pain, the sensation of choking and being unable to clear it, severe nausea or vomiting, abdominal painor any other severe symptom -Citrucel (make sure it is free of sugar and artificial sweetener): 1tsp daily for one week, then 2tsp daily for one week, then 3tsp (1TBSP) daily. May increase slowly up to 2 TBSP daily. Titrate according to what works best for you.This may cause bloating initially but this will improve with continued use. -Constipation Rescue Regimen as needed RTC in 4 months with motility JOSESITO when Esophageal manometry and barium swallow are complete to further consolidate the GI care plan for the patient's local team. Due to the consultative nature of ourpractice, the patient should continue to work with Dr. Foley as the primary point of contact forurgent issues, medication refills and adjustments as needed for continuity of care purposes in between visits to our center based on the recommendations above. Per their discretion, it may be beneficial for the patient to establish with a local bilingual inside sales representative for continuity of care, so that we can co-manage on a consultative basis more effectively. TROUBLE SWALLOWING TIPS -Avoid foods that are hard or have tough skins. Avoid foods that fall apart in your mouth such as seeds, nuts, muffins. Avoid dry sticky foods such as mashed potatoes without gravy, white bread, peanut butter. -Always eat slowly and carefully, no distractions (such as the TV) when eating -Sit upright -Take small bites of food and small sips of liquid -Do not use straws -Avoid mixing food textures (such as chicken noodle soup or dry cereal with milk) -Remain upright 20-30min after eating -Constipation Rescue regimen Step 1 if 2 days without a bowel movement) Use a glycerin suppository at night then try to have a bowel movement in 10-15 minutes Step 2 if 3 days without a bowel movement) If the glycerin does not work, use a warm (not hot) tap water enema Step 3 if 4 days without a bowel movement) Try taking senna (up to four tabs), two dulcolax 5mg oral tabs or a dulcolax suppository 30 minutes later depending on what works best for you. Healthy Bowel Habits 1. Eat all of your meals (breakfast, lunch, and dinner) at a predictable time each day. The bowel functions best when food is introduced at the same regular intervals. 2. Eat foods in similar amounts. The bowel functions best when food is in similar quantity. The size of different meals taken through the day may vary, but the amount of food eaten at a given meal (breakfast, lunch, or dinner) should be about the same quantity from day to day. 3. Breakfast is the most important meal involved in bowel stimulation. Make sure you eat breakfast every day. 4. Eat a high fiber diet that includes both soluble and insoluble fiber. 5. Keep caffeine to a minimum. Caffeine is a diuretic drawing fluid from your colon and leaving your stools hard. 6. Drink plenty of decaffeinated fluids. Ideally a person should drink 64 ounces a day or 8 glassesof water, especially if you are eating a fiber-rich diet. This may not be possible for people suffering from kidney disease, heart disease or urinary problems. 7. Exercise daily. Exercise increases colonic transit time. Bowel function is helped most when exercise is at a consistent daily time. Bowel Movement Technique Find your best time of day to have a bowel movement. Usually the best time of day for a bowel movement will be a half hour to an hour after breakfast. For some people a half hour to an hour after lunch will work better. These times are best because the body uses the gastro-colic reflex, a stimulation of bowel motion that occurs with eating, to help produce a bowel movement. Make sure that you arenot rushed and have convenient access to a bathroom at this time. ? Sit on toilet and lean forward, resting forearms on thighs. Lift heels or place feet on stool. ? Alternate position-may try leaning forward and grasping ankles. ? Relax rectum, feeling it slightly bulge outward. ? Keeping lips, jaw and mouth open will facilitate relaxation of the pelvic floor during your bowelmovement. ? Breathe in through nose and exhale through mouth or perform gentle hissing through the teeth. Gently direct the air down and back to the rectum, keeping your abdomen firm. ? Post- patients or patients with perineal descent should place fingers externally on the perineum (area between vagina and rectum). ? When finished -contract pelvic floor muscles to restore normal pelvic floor tone. Repeat 3-4 times. If still unsuccessful, contract the pelvic floor and get off the toilet. Avoid straining documented in this encounter Progress Notes * Keron Wilkerson, PRAVEEN - 11/07/2021 3:30 PM EDT Chief Complaint: Maria Del Carmen Rodriguez is a [address] y[address] patient of [address] Foley here for follow-up of dysphagia, regurgitation, odynophagia, weight loss, constipation. Detailed history: Maria Del Carmen is a 66 y.o. female with past medical history significant for pancytopenia, seizures (well controlled on seizure medication per patient), sleep apnea. ?? Maria Del Carmen was last seen by me 10/26/2021. The assessment and plan at that time were as follows: ?? #Dysphagia #Odynophagia #Weight loss #Constipation #Change in bowel habits ?? Dysphagia began approximately 2 to 3 years ago but has been worsening in frequency over the last year. Experiences dysphagia to solids and liquids. Occurs with every meal. Feels food or liquid get stuck at upper throat and drinks liquids to resolve. She also endorses constant odynophagia that sometimes wakes her from sleep. Denies heartburn. Endorses regurgitation of foods frequently with eating or regurgitation of phlegm and not eating. She does not weigh herself but has lost at least 2-3 clothing sizes. She denies nausea, vomiting, abdominal pain, dyspepsia. There is a family history of esophageal cancer in her mother (unknown diagnosed age). ?? Constipation began a few years ago. Oliver type I every few days. Endorses significant straining. Denies bloody stool, melena, fecal incontinence. [facility] ?? Recommend urgent upper endoscopy to assess for structural cause of dysphagia, such as malignancy. Will also place order for esophageal manometry so that this can be scheduled but this plan may changedepending on findings of EGD. Ordering upper endoscopy with anesthesia due to patient's history of seizures. ?? Will also place order for colonoscopy since patient does not believe she has ever had a colonoscopyand has had change in bowel habits. We discussed either obtaining this with the upper endoscopy (which will be done urgently) or doing this at a later date. Patient prefers to have them done at the same time. Discussed with patient that if she is unable to tolerate the prep due to dysphagia we would still want her to undergo the upper endoscopy even if colonoscopy is deferred because of prep intolerance. She expresses understanding. Patient did not know medication list. Unable to review medications. Patient will bring list of medications to next appointment. ?? Recommendations: ?? Diagnostics: -EGD/Colonoscopy (urgent) -Esophageal manometry ? Therapeutics: -Dysphagia handout RTC in 1 month with motility JOSESITO when upper endoscopy is complete to further consolidate the GI care plan for the patient's local team. Due to the consultative nature of our practice, the patient should continue to work with Dr. Foley as the primary point of contact for urgent issues, medication refills and adjustments as needed for continuity of care purposes in between visits to our center based on the recommendations above. Interval history: EGD normal Colonoscopy unremarkable Symptoms continue Review of systems: 14-system ROS reviewed and negative except as above Medications: Outpatient Medications Prior to Visit Medication Sig Dispense Refill ??? gabapentin (Neurontin) 100 mg Capsule Take 200 mg by mouth daily. ??? diphenhydrAMINE/aluminum-magnesium hydroxide with simethicone/lidocaine (BMX) oral suspension Take 10 mLs by mouth 3 times daily as needed. 500 mL 1 ??? cholecalciferol, Vitamin D3, 2,000 unit Tablet 0 ??? OYSTER SHELL CALCIUM 500 500 mg calcium (1,250 mg) Tablet 1 ??? cyanocobalamin 1,000 mcg Tablet take 1 tablet by mouth daily 0 ??? ferrous sulfate 325 mg (65 mg iron) Tablet take 1 tablet by mouth daily 0 ??? sucralfate (CARAFATE) 1 gram Tablet take 1 tablet by mouth twice a day 0 ??? divalproex (DEPAKOTE) 500 mg EC tablet Take by mouth daily. ??? ibuprofen (ADVIL;MOTRIN) 600 mg tablet 600MG = 1 Tablet(s), PO, Four times daily ??? traZODone (DESYREL) 100 mg tablet 100MG = 1 Tablet(s), PO, QHS No facility-administered medications prior to visit. Allergies: is allergic to amoxicillin trihydrate and penicillins. Past Medical History: has a past medical history of Hypertension, Seizures, and Sleep apnea. Past Surgical History: has a past surgical history that includes knee surgery (Bilateral); Ankle surgery (Right); Upper GI Endoscopy, Diagnostic (72083) (N/A, 10/30/2021); and Colonoscopy, Almaz Jay (60898) (N/A, 10/30/2021). Family History: family history includes Esophageal Cancer in her mother. denies family history of colon cancer, IBD, or celiac disease in mother father or other family members Social History: reports that she has quit smoking. Her smoking use included cigarettes. She has a 12.00 pack-year smoking history. She has never used smokeless tobacco. She reports that she does not drink alcohol and does not use drugs. Physical Exam: No performed during telephone visit Questionnaire: No flowsheet data found. Laboratory studies, imaging, and procedures: 10/2021 Colonoscopy: The examined portion of the ileum ?was normal. ?- One 1 mm polyp in the ascending ?colon, removed with a cold snare. ?Resected and retrieved. ?- The sigmoid colon, descending ?colon and transverse colon are ?normal. ?- Internal hemorrhoids. A - Ascending colon polyp, resection: - ??Colonic mucosa with lymphoid aggregate. Additional levels examined. 10/2021 EGD: - Esophagogastric landmarks ?identified. ?- Normal esophagus. ?- A few fundic gland polyps. ?- Normal examined duodenum. ?- No specimens collected. 10/2016 modified barium swallow Delayed swallow trigger; otherwise grossly normal physiologic swallow. Mild piriform sinus residue to which the patient is sensate and clears with secondary swallow. No evidence of laryngeal penetration or aspiration. Assessment/Plan: Ms. Rodriguez is a 66 y.o. patient with past medical history significant for pancytopenia, seizures (well controlled on seizure medication per patient), sleep apnea. ?? Maria Del Carmen was last seen by me 10/26/2021 for dysphagia, odynophagia, weight loss, change in bowel habits, constipation. Since her last visit Maria Del Carmen obtained an upper endoscopy that was unremarkable and colonoscopy found 1 small polyp otherwise normal. Will continue evaluation with esophageal manometry, which is scheduled for March 2022, and barium swallow. We discussed symptoms that require emergent attention at nearest emergency department. For constipation recommend patient trial Citrucel daily and constipation rescue regimen as needed. She states that she cannot tolerate MiraLAX. Recommendations: Diagnostics: -Esophageal manometry (scheduled for 03/06/2022) -Barium Swallow (5 min timed and double contrast) -Anorectal manometry Therapeutics: -Dysphagia handout -Please seek emergency medical attention at nearest emergency department if you experience chest pain, the sensation of choking and being unable to clear it, severe nausea or vomiting, abdominal painor any other severe symptom -Citrucel (make sure it is free of sugar and artificial sweetener): 1tsp daily for one week, then 2tsp daily for one week, then 3tsp (1TBSP) daily. May increase slowly up to 2 TBSP daily. Titrate according to what works best for you.This may cause bloating initially but this will improve with continued use. -Constipation Rescue Regimen as needed RTC in 4 months with motility JOSESITO when Esophageal manometry and barium swallow are complete to further consolidate the GI care plan for the patient's local team. Due to the consultative nature of ourpractice, the patient should continue to work with Dr. Foley as the primary point of contact forurgent issues, medication refills and adjustments as needed for continuity of care purposes in between visits to our center based on the recommendations above. Per their discretion, it may be beneficial for the patient to establish with a local bilingual inside sales representative for continuity of care, so that we can co-manage on a consultative basis more effectively. Patient verbally consents to this telephone visit and understands that this visit may be billed, similar to a clinic office visit. I provided care to the patient today via telephone call. TIME SPENT WITH PATIENT Time spent reviewing records prior to this encounter on day of appointment: 3 minutes Time spent during encounter with patient including counselin minutes Time spent documenting encounter after office visit: 10 minutes Keron Wilkerson APRN [facility] [place] [phone] documented in this encounter Plan of Treatment Not on file documented as of this encounter Visit Diagnoses Diagnosis Dysphagia, unspecified type Regurgitation of food Odynophagia Dysphagia, unspecified Constipation, unspecified constipation type documented in this encounter Care Teams Picked Edge Sewing Machine Operator Relationship Specialty Start Date End Date Harriet Foley MD [address] [place] [id number] PCP - General Family Medicine 08/29/21 documented as of this encounter
--- OUTSIDE RECORDS SUMMARY | 2024-01-17 01:00 | XMS_ITS | Encounter Summary ---
Author Organization [place] [address] Care Team Providers Care An/Ssn 2 4 Operator Name Role Phone Harriet Foley MD Primary Care Provider Encounter Details Date Type Department Care Team (Latest Contact Info) Description 07/06/2022 Travel Social History Tobacco Use Types Packs/Day Years [...] on file documented as of this encounter Plan of Treatment Not on file documented as of this encounter Visit Diagnoses Not on filedocumented in this encounter Care Teams An/Ssn 2 4 Operator Relationship Specialty Start Date End Date Harriet Foley MD [address] [place] [address] [place] [address] PCP - General Family Medicine 08/29/21 documented as of this encounter
--- OUTSIDE RECORDS SUMMARY | 2024-01-17 01:00 | XMS_ITS | Clinical Summary ---
Author Organization [facility] Address [address] [place] [address] Care Team Providers Care Rn Care Manager Name Role Phone Leeann Meléndez MD Primary Care Provider [phone] Social History Tobacco Use Types Packs/Day Years Used Date Smoking Tobacco: Never Assessed Interpersonal Safety Answer Date Record ed Physically Hurt Never 01/31/2020 Verbally Threaten Not on file 01/31/2020 Sex and Gender Information Value Date Recorded Sex Assigned at Not on file Gender Identity Not on file Sexual Orientation Not on file Plan of Treatment Health Maintenance Due Date Last Done Comments Hepatitis C Screen 1955 RSV Immunization ( o r 60+ Years) (1 - 1-dose 60+ series) 2017 Fall Risk Screening 2022 COVID-19 Vaccine (2022-24 season) 2023 Care Teams Rn Care Manager Relationship Specialty Start Date End Date Leeann Meléndez MD [address] [place] [address] PCP - General 02/23/15
--- OUTSIDE RECORDS SUMMARY | 2024-01-17 01:00 | XMS_ITS | Encounter Summary ---
Author Organization [facility] Address [address] [place] [address] Care Team Providers Care Filtering Machine Tender Helper Name Role Phone Unavailable Primary Care Provider Unavailabl e Encounter Details Date Type Department Care Team (Late st Contact Info) Description 08/19/2013 Results Only [facility] [phone] Karri Meléndez MD [address] [place] [address] [address] [place] [id number] Social History Tobacco Use Types Packs/Day Years Used Date Smoking Tobacco: Never Assessed Sex and Gender Information Value Date Recorded Sex Assigned at Not on file Gender Identity Not on file Sexual Orientation Not on file documented as of this encounter Plan of Treatment Not on file documented as of this encounter Procedures Procedure Name Priority Date/Time Associated Diagnosis Comments PAP TEST- RESULT ONLY Routine 08/19/2013 0:00 EST documented in this encounter Results * PAP TEST- RESULT ONLY (08/19/2013 0:00 EST) Pathology Report: CYTOPATHOLOGY REPORT Reports generated via electronic interface contain original data; however they are lacking the format of the original report. Caution should be taken when reading/interpreti ng unformatted reports. Name: ? MARIA DEL CARMEN RODRIGUEZ ? Accession #: ? [id number] ? : ? 1955 (Age: 58) ??F ?Collect Date: ? 08/19/2013 ? Location: ? [facility] ? Receive Date: ? 08/20/2013 ? Provider: KARRI MELÉNDEZ MD Copy to: ? Final Report SPECIMEN ADEQUACY ? Satisfactory for Evaluation - assessment of transformation zone component not applicable ( e.g. atrophy, vaginal sample, hysterectomy) - scant squamous epithelial component GENERAL CATEGORIZATION ? Negative for Intraepithelial Lesion or Malignancy ?? Menstrual/Pregnanc y Status: ??Post Menopausal Hormonal/Contracep tive status: Tubal ligation Treatment History: Miscellaneous treatment: Oopherectomy - many years ago Specimen/Source: ??Pap Test, Cervix/Endocervix, ThinPrep Imaging System with manual evaluation Document reviewed and electronically signed by: ? Yana Sharp, CT(ASCP) ? Report ??Date: 08/25/2013 12:22 HPV with Pap Test ? Date Ordered: ? 08/25/2013 ? Status: ?? Signed Out ?Date Complete: ? 08/27/2013 ? By: ??System Interface ? Date Reported: ? 08/27/2013 ? Interpretation RESULT: Negative for HPV. No E6 or E7 mRNA is detected from HPV types 16,18,31,33,35, 39,45,51,52,56,58, 59,66, and 68 by look out tower fire watcher mediated amplification. Comments Document reviewed and electronically signed by: ? System Interface ? Report date: 08/27/2013 By the signature above, the attending physician certifies that he/she has personally conducted a gross and/or microscopic examination of the described specimens and rendered or confirmed the above diagnosis. End of Report [facility] 08/19/2013 08/20/2013 Karri Meléndez MD PATHOLOGY ORDERABLE S Performing Organization Address City/State/[facility] Co de Phone Number [facility] [address] [place] [address] documented in this encounter Visit Diagnoses Not on filedocumented in this encounter
--- OUTSIDE RECORDS SUMMARY | 2024-01-17 01:00 | XMS_ITS | Encounter Summary ---
Author Organization [facility] Address [address] [place] [address] Care Team Providers Care Sinker Puller Name Role Phone Leeann Meléndez MD Primary Care Provider [phone] Encounter Details Date Type Department Care Team (Late st Contact Info) Description 10/10/2020 Lab Requisition [facility] Pathology & Laboratory Medicine - [facility] [address] [place] [address] Outr Resulting Lab, Provider Social History Tobacco Use Types Packs/Day Years [...] Procedure Name Priority Date/Time Associated Diagnosis Comments ZZCOVID-19 TEST [facility] PCR Today 10/10/2020 10:18 EDT COVID-19 TESTING Routine 10/10/2020 10:1 8 EDT documented in this encounter Results * COVID-19 TEST [facility] PCR (10/10/2020 10:18 EDT) Swab ENTIRE NASOPHARYNX / Unknown 10/10/2020 10:18 EDT 10/10/2020 15:57 EDT Provider Outr Resulting Lab MICROBIOLOGY - GENERAL ORDERABLES [facility] [address] [place] [address] * COVID-19 TESTING (10/10/2020 10:18 EDT) COVID-19 rt-PCR Result Negative Negative 10/11/2020 14:[address] [facility] Comment: This test has not been FDA cleared or approved. This test has been authorized by FDA under an EUA for use by authorized laboratories. This test has been authorized only for detection of nucleic acid from 2019-nCoV, not for any other viruses or pathogens. This test is only authorized for the duration of the declaration that circumstances exist justifying the authorization of emergency use of in vitro diagnostic tests for detection and/or diagnosis of 2019-nCoV under section 564(b)(1) of Act, 21 U.S.C ?? 360bbb-3(b) (1), unless the authorization is terminated or revoked sooner. Negative results do not preclude 2019-nCoV infection and should not be used as the sole basis for treatment or other patient management decisions. Negative results must be combined with clinical observations, patient history, and epidemiological information. Testing was performed using the christy SARS-CoV-2 assay ([employer] on the Christy 6800 System Performing Lab Christy [address] [facility] 10/11/2020 14:[address] [facility] Swab 10/10/2020 10:1 8 EDT 10/10/2020 15:57 EDT Provider Outr Resulting Lab MICROBIOLOGY - GENERAL ORDERABLES [facility] [address] [place] [address] documented in this encounter Visit Diagnoses Not on filedocumented in this encounter Care Teams Sinker Puller Relationship Specialty Start Date End Date Leeann Meléndez MD [address] [place] [address] PCP - General 02/23/15 documented as of this encounter
--- OUTSIDE RECORDS SUMMARY | 2024-01-17 01:00 | XMS_ITS | Encounter Summary ---
Author Organization Formerly [facility], Later [facility] Address [facility] [place] [address] Care Team Providers Care President [employer]gon[employer] Consulting Name Role Phone Harriet Foley MD Primary Care Provider Reason for Visit * Diagnostic Test (Routine) - Closed Specialty Diagnoses / Procedures Referred By Darius garcia Referred To Contact Gastroenterology Diagnoses Dysphagia, unspecified type Regurgitation of food Weight loss Odynophagia Change in bowel habits Constipation, unspecified constipation type Family history of esophageal cancer BUMP 03/06 HREM - dysphagia hrem after egd and fuv w/Keron Procedures High Resolution Esophageal Manometry HREM - dysphagia Keron Wilkerson, AUDITOR IN CHARGE [facility] [place] [address] [facility] [address] [place] [address] Referral ID Status Reason Start Date Expiration Date V isits Requested Visits Authorized [id number] Closed Test Only 10/26/2021 10/26/2022 1 1 Encounter Details Date Type Department Care Team (Latest Contact Info) Description 07/06/2022 10:00 AM EST Procedure [place] [address] Dysphagia, unspecified type; Regurgitation of food; Weight loss; Odynophagia; Change in bowel habits; Constipation, unspecified constipation type; Family history of esophageal cancer Social History Tobacco Use Types Packs/Day Years [...] on file documented as of this encounter Progress Notes * Mehreen Rush RN - 07/06/2022 10:00 AM EST A description of the esophageal manometry procedure was provided to the patient. All questions wereanswered and the patient verbalized understanding. The HREM catheter was placed via the left naris without difficulty. The esophageal manometry procedure was performed and the catheter was removed. The patient tolerated the procedure well. * Maynor Siegel MD - 07/06/2022 10:00 AM EST Images from the original note were not included. HIGH-RESOLUTION ESOPHAGEAL MANOMETRY PROCEDURE NOTE Patient: Maria Del Carmen Rodriguez Address: [address] [address] : 1955 Date of service: 07/06/2022 Indication: Dysphagia Procedure: The patient arrived after an overnight fast. After verbal consent, a Harriett motility catheter with 36 circumferential sensors on 1 cm spacing with impedance sensors was inserted transnasally after application of topical anesthesia to the nasal passage. The catheter was positioned so that at least 2distal sensors were in the stomach and 2 proximal sensors were located above the UES. A 3-5 minute a cclimation period was provided followed by 10 wet swallows of 5 cc of water while supine. Normal values while supine: Upper esophageal sphincter residual pressure: < 12 mmHg Upper esophageal sphincter relaxation duration: > 480 msec Distal contractile integral (DCI): > 450 and < 8,000 mmHg x cm x s Distal latency time: > 4.5 sec Integrated EGJ relaxation pressure (IRP): < 15 mmHg Normal EGJ resting pressure (respiratory mean): 15-34 mmHg Findings: - Upper Esophageal Sphincter: normal mean residual pressure and relaxation duration - Body: 0% of swallows failed. 0% of swallows had premature contractions with shortened distal latency time. The remaining 100% of swallows were peristaltic, includin% of swallows with hypercontractility, 0% of swallows with weak peristalsis, and 0% of swallows with large breaks (>5 cm) in the 20mmHg isocontour line. - Esophagogastric Junction: Midpoint located 42 cm from the nares, and proximal extent located at 40 cm. 1cm hiatal hernia present. Normal resting pressure (mean 41 mmHg) and normal IRP in 70% of swallows (median 14.5 mmHg). - Bolus transit: Liquid boluses cleared in 100% of swallows. - Multiple rapid swallows: Peristaltic reserve: reduced (ratio of post-multiple rapid swallow DCI to median DCI on 10 supine swallows is <1.0) Deglutitive inhibition: impaired deglutitive inhibition (DCI >=100 mmHg*s*cm) during the maneuver Integrated relaxation pressure: 9 mmHg (normal <12 mmHg) - Rapid drink challenge: Esophageal body contractility: normal deglutitive inhibition (DCI <100 mmHg*s*cm) during the maneuver Integrated relaxation pressure: 6 mmHg (normal <12 mmHg) Animal Park Code Enforcement Officer swallow: Impressions based on Wimberley Classification v4.0: No evidence of a clinically significant disorder of peristalsis or EGJ outflow obstruction. Borderline IRP noted but no evidence of hypercontractile swallows or distal compartmentalization sothis finding is unlikely clinically significant. Consider timed barium swallow and double contrast barium swallow for further evaluation if appropriate. *These findings assume that mechanical obstruction has been ruled out. Maynor Siegel MD, FRCPC Section of Gastroenterology and Hepatology [facility] [place] [address] V: [phone] F: [phone] CC/EC: Harriet Foley MD [address] [place] [address] documented in this encounter Plan of Treatment Not on file documented as of this encounter Visit Diagnoses Diagnosis Dysphagia, unspecified type Regurgitation of food Weight loss Loss of weight Odynophagia Dysphagia, unspecified Change in bowel habits Other symptoms involving digestive system Constipation, unspecified constipation type Family history of esophageal cancer Family history of malignant neoplasm of gastrointestinal tract documented in this encounter Care Teams President [employer] Consulting Relationship Specialty Start Date End Date Harreit Foley MD [address] [place] [id number] PCP - General Family Medicine 08/29/21 documented as of this encounter
--- OUTSIDE RECORDS SUMMARY | 2024-01-17 01:00 | XMS_ITS | Encounter Summary ---
Author Organization [facility] Address [address] [place] [address] Care Team Providers Care Lead Generation Representative Name Role Phone Unavailable Primary Care Provider Unavailabl e Encounter Details Date Type Department Care Team (Late st Contact Info) Description 11/20/2010 Results Only [facility] Services - [facility] ([address] [address] Ivan Vergara MD Social History Tobacco Use Types Packs/Day Years [...] Diagnosis Comments PAP TEST- RESULT ONLY Routine 11/20/2010 0:00 EDT documented in this encounter Results * PAP TEST- RESULT ONLY (11/20/2010 0:00 EDT) Pathology Report: CYTOPATHOLOGY REPORT ? Reports generated via electronic interface contain original data; ? however they are lacking the format of the original report. ? Caution should be taken when reading/interpreti ng unformatted reports. ? Name: ? MELONY, MARIA DEL CARMEN Bullock ? Accession #: ? [id number] ? : ? 1955 (Age: 55) ??F ?Collect Date: ? 11/20/2010 ? Location: ? [facility] ? Receive Date: ? 11/21/2010 ? Provider: IVAN VERGARA MD ? Copy to: ? Final Report ? SPECIMEN ADEQUACY ? Satisfactory for Evaluation ? - transformation zone component present ? GENERAL CATEGORIZATION ? Negative for Intraepithelial Lesion or Malignancy ? Last Menstural Period: 02/08/11 ? Specimen/Source: ??Pap Test, Cervix/Endocervix, ThinPrep Imaging System with ? manual evaluation ? Document reviewed and electronically signed by: ? Marianna Aleman, SCT(ASCP) ? Report ??Date: 11/23/2010 14:18 ? HPV with Pap Test ? Date Ordered: ? 11/23/2010 ? Status: ?? Signed Out ?Date Complete: ? 11/28/2010 ? By: ??System Interface ? Date Reported: ? 11/28/2010 ? Interpretation ? RESULT: Negative for HPV types 16, 18, 31, 33, 35, 39, 45, 51, 52, ? 56, 58, 59, and 68. ? Comments ? Document reviewed and electronically signed by: ? System Interface ? Report date: 11/28/2010 ? By the signature above, the attending physician certifies that he/she has ? personally conducted a gross and/or microscopic examination of the described ? specimens and rendered or confirmed the above diagnosis. ? End of Report ? [facility] 11/20/2010 11/21/2010 Ivan Vergara MD PATHOLOGY ORDERABLES [facility] [address] [place] [address] documented in this encounter Visit Diagnoses Not on filedocumented in this encounter
--- OUTSIDE RECORDS SUMMARY | 2024-01-17 01:00 | XMS_ITS | Encounter Summary ---
Author Organization [facility] Address [address] [place] [address] Care Team Providers Care Hardwood Floor Sander Name Role Phone Unavailable Primary Care Provider Unavailabl e Encounter Details Date Type Department Care Team (Late st Contact Info) Description 10/20/2007 Results Only [facility] [place] [facility] [address] [place] [address] Ivan Vergara MD Social History Tobacco Use Types Packs/Day Years Used Date Smoking Tobacco: Never Assessed Sex and Gender Information Value Date Recorded Sex Assigned at Not on file Gender Identity Not on file Sexual Orientation Not on file documented as of this encounter Plan of Treatment Not on file documented as of this encounter Procedures Procedure Name Priority Date/Time Associated Diagnosis Comments HPV DETECTION, HIGH RISK TYPES Routine 10/20/2007 9:55 EDT CYTOPATHOLOGY Routine 10/20/2007 0:00 EDT documented in this encounter Results * HUMAN PAPILLOMA VIRUS DNA TEST (10/20/2007 9:55 EDT) Specimen Description Cervix, ThinPrep vial [facility] Result Negative for HPV types 16, 18, 31, 33, 35, 39, 45, 51, 52, 56, 58, 59, and 68. [facility] Report Status Final [id number] [facility] 10/20/2007 9:55 EDT 10/28/2007 9:55 EDT Ivan Vergara MD MICROBIOLOGY - GENER AL ORDERABLES [facility] [address] [place] [address] * CYTOPATHOLOGY (10/20/2007 0:00 EDT) Pathology Report: CYTOPATHOLOGY REPORT Reports generated via electronic interface contain original data; however they are lacking the format of the original report. Caution should be taken when reading/interpreti ng unformatted reports. Name: ? MARIA DEL CARMEN RODRIGUEZ ? Accession #: ? [id number] : ? 1955 (Age: 52) ??F ?Collect Date: ? 10/20/2007 Location: ? [facility] ? Receive Date: ? 10/22/2007 Provider: ?IVAN VERGARA MD Copy to: ? Specimen/Source: ?ThinPrep Pap Test, Cervix/Endocervix, processed on [employer] ThinPrep Imaging System, with manual evaluation Last Menstrual Period: ? 09/29/07 Other: ? HPVDX - HPV testing requested regardless of diagnosis on current ThinPrep Pap test. ? SPECIMEN ADEQUACY ? Satisfactory for Evaluation - transformation zone component present GENERAL CATEGORIZATION ? Negative for Intraepithelial Lesion or Malignancy ? Document reviewed and electronically signed by: ? ELOISE Mireles(ASCP) ? Report Date: ??10/27/2007 08:48 End of Report [facility] 10/20/2007 10/22/2007 Ivan Vergara MD PATHOLOGY ORDERABLES [facility] [address] [place] [address] documented in this encounter Visit Diagnoses Not on filedocumented in this encounter
--- OUTSIDE RECORDS SUMMARY | 2024-01-17 01:00 | XMS_ITS | Encounter Summary ---
Author Organization [facility] Address [facility] [place] [address] Care Team Providers Care Electrical Maintenance Supervisor Name Role Phone Harriet Foley MD Primary Care Provider [phone] Encounter Details Date Type Department Care Team (Late st Contact Info) Description 10/30/2021 9:00 AM EDT - 10/30/2021 10:00 AM EDT [place] [address] [place] [address] EGD, UPPER GI ENDOSCOPY (WRVU 2.09) Social History Tobacco Use Types Packs/Day Years [...] on file documented as of this encounter Last Filed Vital Signs Vital Sign Reading Time Taken Comments Blood Pressure 102/64 10/30/2021 10:00 AM EDT Pulse 91 10/30/2021 8:09 AM EDT Temperature 36.6 ??C (97.8 ??F) 10/30/2021 8:09 AM ED T Respiratory Rate 18 10/30/2021 10:00 AM EDT Oxygen Saturation 100% 10/30/2021 10:00 AM EDT Inhaled Oxygen Concentration - - Weight 49 kg (108 lb 0.4 oz) 10/30/2021 8:09 AM EDT Height 162.6 cm (5' 4) 10/30/2021 8:09 AM EDT Body Mass Index 18.54 10/30/2021 8:09 AM EDT documented in this encounter Discharge Instructions * Discharge Instructions* Elan Romero RN - 10/30/2021 9:35 AM EDT Upper GI Endoscopy: What to Expect at Home Your Recovery You will be able to go home after your doctor or nurse checks to make sure you are not having any problems. You may have to stay overnight if you had treatment during the test. You may have a sore throat fora day or two after the test. This care sheet gives you a general idea about what to expect after the test. How can you care for yourself at home? Activity Rest when you feel tired. You can do your normal activities when it feels okay to do so. Diet Follow your doctor's directions for eating. Unless your doctor has told you not to, drink plenty of fluids. This helps to replace the fluids that were lost during the prep. Do not drink alcohol. Medicines Your doctor will tell you if and when you can restart your medicines. He or she will also give you instructions about taking any new medicines. If you take blood thinners, such as warfarin (Coumadin), clopidogrel (Plavix), or aspirin, be sure to talk to your doctor. He or she will tell you if and when to start taking those medicines again. Make sure that you understand exactly what your doctor wants you to do. If polyps were removed or a biopsy was done during the test, your doctor may tell you not to take aspirin or other anti-inflammatory medicines for a few days. These include ibuprofen (Advil, Motrin) and naproxen (Aleve). If you have a sore throat the day after the procedure, use an oduk-zej-cxywxvc spray to numb your throat. Sucking on throat lozenges and gargling with warm salt water may also help relieve your symptoms. Other instructions For your safety, do not drive or operate machinery until the medicine wears off and you can think clearly. Your doctor may tell you not to drive or operate machinery until the day after your test. Do not sign legal documents or make major decisions until the medicine wears off and you can think clearly. The anesthesia can make it hard for you to fully understand what you are agreeing to. Additional Information for Sedation Patients For patients who received sedation: You may have received medications before and/or during your procedure which effects your judgement and reaction time. Do not drive, operate machinery, drink alcoholic beverages or make important decisions for 24 hours. Be careful on stairs as you may be unsteady on your feet. You may eat a regular diet as tolerated. Do not smoke if you are alone. IV site: Slight redness or tenderness is normal, you can use a warm compress if you would like. If tenderness and/or redness increase or if foul drainage occurs, please contact your Doctor. Please call [phone] before 8pm Mon-Fri with problems, questions or concerns. If you call after 8pm or on weekends, call the Hospital at [phone] and ask to speak to the Program Management Manager demolition worker and the candle wrapping machine operator will contact that person for you. When should you call for help? Call [phone] anytime you think you may need emergency care. For example, call if: You passed out (lost consciousness). You pass maroon or bloody stools. You have trouble breathing. Call your doctor now or seek immediate medical care if: You have pain that does not get better after you take pain medicine. You are sick to your stomach or cannot drink fluids. You have new or worse belly pain. You have blood in your stools. You have a fever. You cannot pass stools or gas. Watch closely for changes in your health, and be sure to contact your doctor if you have any problems. Where can you learn more? [facility] View your After Visit Summary and more online at [email or web address] If you would like to provide feedback about your hospital experience, please call the Office of Patient and Family Relations at . If you have received this After Visit Summary in error, please immediately return it in person to the department, or notify the [facility] Privacy Office by calling toll free at between the hours of 8AM and 5PM to arrange for our retrieval of the documents at no cost to you. Content Version: 12.2 ?? 2777-8828 [employer]. Care instructions adapted under license by [facility]. If you have questions about a medical condition or this instruction, always ask your healthcare professional. [employer] disclaims any warranty or liability for your use of this information. Colonoscopy: What to Expect at Home Your Recovery Your doctor will talk to you about when you will need your next colonoscopy. Your doctor can help you decide how often you need to be checked. This will depend on the results of your test and your risk for colorectal cancer. After the test, you may be bloated or have gas pains. You may need to pass gas. If a biopsy was done or a polyp was removed, you may have streaks of blood in your stool (feces) for a few days. Problems such as heavy rectal bleeding may not occur until several weeks after the test. This isn't common. But it can happen after polyps are removed. This care sheet gives you a general idea about how long it will take for you to recover. But each person recovers at a different pace. Follow the steps below to get better as quickly as possible. How can you care for yourself at home? Activity Rest when you feel tired. You can do your normal activities when it feels okay to do so. Diet Follow your doctor's directions for eating. Unless your doctor has told you not to, drink plenty of fluids. This helps to replace the fluids that were lost during the colon prep. Do not drink alcohol. Medicines Your doctor will tell you if and when you can restart your medicines. He or she will also give you instructions about taking any new medicines. If you take blood thinners, such as warfarin (Coumadin), clopidogrel (Plavix), or aspirin, be sure to talk to your doctor. He or she will tell you if and when to start taking those medicines again. Make sure that you understand exactly what your doctor wants you to do. If polyps were removed or a biopsy was done during the test, your doctor may tell you not to take aspirin or other anti-inflammatory medicines for a few days. These include ibuprofen (Advil, Motrin) and naproxen (Aleve). Other instructions For your safety, do not drive or operate machinery until the medicine wears off and you can think clearly. Your doctor may tell you not to drive or operate machinery until the day after your test. Do not sign legal documents or make major decisions until the medicine wears off and you can think clearly. The anesthesia can make it hard for you to fully understand what you are agreeing to. Additional Information for Sedation Patients For patients who received sedation: You may have received medications before and/or during your procedure which effects your judgement and reaction time. Do not drive, operate machinery, drink alcoholic beverages or make important decisions for 24 hours. Be careful on stairs as you may be unsteady on your feet. You may eat a regular diet as tolerated. Do not smoke if you are alone. IV site: Slight redness or tenderness is normal, you can use a warm compress if you would like. If tenderness and/or redness increase or if foul drainage occurs, please contact your Doctor. Please call [phone] before 8pm Mon-Fri with problems, questions or concerns. If you call after 8pm or on weekends, call the Hospital at [phone] and ask to speak to the Program Management Manager demolition worker and the candle wrapping machine operator will contact that person for you. When should you call for help? Call [phone] anytime you think you may need emergency care. For example, call if: You passed out (lost consciousness). You pass maroon or bloody stools. You have trouble breathing. Call your doctor now or seek immediate medical care if: You have pain that does not get better after you take pain medicine. You are sick to your stomach or cannot drink fluids. You have new or worse belly pain. You have blood in your stools. You have a fever. You cannot pass stools or gas. Watch closely for changes in your health, and be sure to contact your doctor if you have any problems. Where can you learn more? [facility] View your After Visit Summary and more online at [email or web address] If you would like to provide feedback about your hospital experience, please call the Office of Patient and Family Relations at . If you have received this After Visit Summary in error, please immediately return it in person to the department, or notify the [facility] Privacy Office by calling toll free at between the hours of 8AM and 5PM to arrange for our retrieval of the documents at no cost to you. Content Version: 12.2 ?? 3517-7029 [employer]. Care instructions adapted under license by [facility]. If you have questions about a medical condition or this instruction, always ask your healthcare professional. [employer] disclaims any warranty or liability for your use of this information. documented in this encounter Medications at Time of Discharge Medication Sig Dispensed Refills Start Date End Date gabapentin (Neurontin) 100 mg Capsule Take 200 mg by mouth daily. diphenhydrAMINE/aluminum-m agnesium hydroxide with simethicone/lidocaine (BMX) oral suspension Take 10 mLs by mouth 3 times daily as needed. 500 mL 1 01/24/2017 cholecalciferol, Vitamin D3, 2,000 unit Tablet 0 08/23/2016 OYSTER SHELL CALCIUM 500 500 mg calcium (1,250 mg) Tablet 1 08/23/2016 cyanocobalamin 1,000 mcg Tablet take 1 tablet by mouth daily 0 08/23/2016 ferrous sulfate 325 mg (65 mg iron) Tablet take 1 tablet by mouth daily 0 08/23/2016 sucralfate (CARAFATE) 1 gram Tablet take 1 tablet by mouth twice a day 0 08/27/2016 divalproex (DEPAKOTE) 500 mg EC tablet Take by mouth daily. 07/12/2006 ibuprofen (ADVIL;MOTRIN) 600 mg tablet 600MG = 1 Tablet(s), PO, Four times daily 07/12/2006 traZODone (DESYREL) 100 mg tablet 100MG = 1 Tablet(s), PO, QHS 07/12/2006 documented as of this encounter H&P Notes * Maggie Selby MD - 10/30/2021 8:53 AM EDT Patient Name: Maria Del Carmen Rodriguez Patient Age: 66 y.o. Birthdate: 1955 Admit date: 10/30/2021 Attending Physician: Maggie Selby MD Gastroenterology and Hepatology Pre-Procedure History and Physical Exam Procedure: EGD: Colonoscopy: Indication: Dysphagia (solid and liquids), weight loss, constipation, does not know family history Patient Active Problem List Diagnosis Code ??? Pancytopenia D61.818 ??? Anemia D64.9 ??? Seizures R56.9 ??? S/P right unicompartmental knee replacement Z96.651 ??? 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 ASA 2 - Patient with mild systemic disease with no functional limitations Sedation Plan: anesthesia Risks and benefits of the procedure explained to the patient. Consent signed. documented in this encounter Plan of Treatment Not on file documented as of this encounter Procedures Procedure Name Priority Date/Time Associated Diagnosis Comments SURGICAL PATHOLOGY REPORT Routine 10/30/2021 9:27 AM EDT SPECIMEN TO PATHOLOGY Routine 10/30/2021 9:27 AM EDT Colonoscopy, Remmahin García, Snare ([id number]) 10/30/2021 8:57 AM EDT Dysphagia, unspecified type Regurgitation of food Weight loss Odynophagia Upper GI Endoscopy, Diagnostic ([id number]) 10/30/2021 8:57 AM EDT Dysphagia, unspecified type Regurgitation of food Weight loss Odynophagia COLONOSCOPY Routine 10/30/2021 8:36 AM EDT UPPER GI ENDOSCOPY Routine 10/30/2021 8: 35 AM EDT documented in this encounter Results * Surgical Pathology Report (10/30/2021 9:27 AM EDT) Surgical Pathology Report [id number] ? Location: 4T; EA07; A The signing pathologist has (i) examined the relevant preparation(s) for the specimen(s) and (ii) rendered or confirmed the diagnosis(es). . ?Surgical Pathology DIAGNOSIS A - Ascending colon polyp, resection: - ??Colonic mucosa with lymphoid aggregate. Additional levels examined. Electronically signed by: ?Cecily Arellano MD Verified: ??11/01/2021 19:42 ??Pathologist Performed at: ??-[facility] Dept. of Pathology, [place], [place] SPECIMEN(S) SUBMITTED A - Ascending colon polyp, resection (1) CLINICAL INFORMATION 66 year-old female; Hx of constipation SPECIMEN PROCESSING A - Labeled/Fixative : Ascending colon polyp, formalin. Quantity/Size: Single, 0.6 cm. Tissue Description: Soft, pale lindquist tissue. Sections/Process ing: Submitted en toto ??in 1 cassette labeled A1. ??mnd [facility] 10/30/2021 9:27 AM EDT Maggie Selby MD PATHOLOGY/CYTOLOGY O CHRISTIAN Performing Organization Address [facility] Co de Phone Number [facility] [place] [address] * Specimen to Pathology (10/30/2021 9:27 AM EDT) AP Specimen 10/30/2021 9:27 AM EDT 10/30/2021 9:27 AM EDT Narrative [facility] - 10/30/2021 9:27 AM EDT Specimen requisition ordered. ??Separate Pathology report to follow Maggie Selby MD PATHOLOGY/CYTOLOGY O CHRISTIAN Performing Organization Address [facility]/ZIP Co de Phone Number [facility] [place] [address] * COLONOSCOPY (10/30/2021 8:36 AM EDT) COLONOSCOPY [facility] Endoscopy Procedure Date: 10/30/2021 8:36 AM ? Patient Name: Maria Del Carmen Rodriguez ? Date of : 1955 ? Age: 66 ? Order #: [id number] ? Instrument Name: [id number] ? Procedure: ? Colonoscopy Indications: ? Constipation Providers: ? Maggie Selby MD, Ayanna Jarnot, ? Kishore Davis, Recruitment Manager Referring MD: ?Bharat Kaiser MD Medicines: ? Monitored Anesthesia Care Complications: ? No immediate complications. Procedure: ? Pre-Anesthesia Assessment: ? - Prior to the procedure, a History ? and Physical was performed, and ? patient medications and allergies ? were reviewed. The patient's ? tolerance of previous anesthesia ? was also reviewed. The risks and ? benefits of the procedure and the ? sedation options and risks were ? discussed with the patient. All ? questions were answered, and ? informed consent was obtained. ? Prior Anticoagulants: The patient ? has taken no anticoagulant or ? antiplatelet agents. ASA Grade ? Assessment: II - A patient with ? mild systemic disease. After ? reviewing the risks and benefits, ? the patient was deemed in ? satisfactory condition to undergo ? the procedure. ? The procedure, indications, ? benefits, risks and alternatives ? were explained to the patient. ? Specifically discussed were ? potential complications including, ? but not limited to, bleeding, ? perforation, infection, missing a ? cancer, and adverse medication ? reactions. The patient was placed ? in the left lateral decubitus ? position, and a digital rectal exam ? was performed. The Colonoscope was ? inserted in the anus and under ? direct visualization, advanced to ? the cecum, identified by ? appendiceal orifice and ileocecal ? valve. Careful inspection was made ? as the colonoscope was withdrawn. ? The colonoscopy was performed ? without difficulty. The patient ? tolerated the procedure well. The ? quality of the bowel preparation ? was evaluated using the BBPS ? ([place] Bowel Preparation Scale) ? with scores of: Right Colon = 3, ? Transverse Colon = 3 and Left Colon ? = 3 (entire mucosa seen well with ? no residual staining, small ? fragments of stool or opaque ? liquid). The total BBPS score ? equals 9. The terminal ileum, ? ileocecal valve, appendiceal ? orifice, and rectum were ? photographed. Withdrawal time was 9 ? minutes. ? Findings: ? The perianal and digital rectal examinations were ? normal. ? The terminal ileum appeared normal. ? A 1 mm polyp was found in the ascending colon. The ? polyp was sessile. The polyp was removed with a cold ? snare. Resection and retrieval were complete. ? Estimated blood loss: none. ? The sigmoid colon, descending colon and transverse ? colon appeared normal. ? Internal hemorrhoids were found during retroflexion. ? Moderate Sedation: ? I was present during the intraservice time as ? documented by the sedation RN. Impression: ?- The examined portion of the ileum ? was normal. ? - One 1 mm polyp in the ascending ? colon, removed with a cold snare. ? Resected and retrieved. ? - The sigmoid colon, descending ? colon and transverse colon are ? normal. ? - Internal hemorrhoids. Recommendation: ?- Await pathology results. ? - Repeat colonoscopy for ? surveillance based on pathology ? results. ? - Return to referring physician. ? Procedure Code(s): ? --- Professional --- ? 20110, Colonoscopy, flexible; with ? removal of tumor(s), polyp(s), or ? other lesion(s) by snare technique CPT copyright 2021 [employer]. All rights reserved. The codes documented in this report are preliminary and upon medical billing coder review may be revised to meet current compliance requirements. Attending Participation: ? I personally performed the entire procedure. ? Maggie Selby MD _ Maggie Selby MD 10/30/2021 9:30:51 AM This report has been signed electronically. Number of Addenda: 0 Note Initiated On: 10/30/2021 8:36 AM PROVATION 10/30/2021 8:36 AM EDT Bharat Kaiser MD GENERAL SURGICAL OR DERABLES PROVATION * UPPER GI ENDOSCOPY (10/30/2021 8:35 AM EDT) UPPER GI ENDOSCOPY [facility] Endoscopy Procedure Date: 10/30/2021 8:35 AM ? Patient Name: Maria Del Carmen Rodriguez ? Date of : 1955 ? Age: 66 ? Order #: [id number] ? Instrument Name: [id number] ? Procedure: ? Upper GI endoscopy Indications: ? Dysphagia Providers: ? Maggie Selby MD, Ayanna Glover, ? Elan Orozco MD: ?Bharat Kaiser MD Medicines: ? Monitored Anesthesia Care Complications: ? No immediate complications. Procedure: ? Pre-Anesthesia Assessment: ? - Prior to the procedure, a History ? and Physical was performed, and ? patient medications and allergies ? were reviewed. The patient's ? tolerance of previous anesthesia ? was also reviewed. The risks and ? benefits of the procedure and the ? sedation options and risks were ? discussed with the patient. All ? questions were answered, and ? informed consent was obtained. ? Prior Anticoagulants: The patient ? has taken no anticoagulant or ? antiplatelet agents. ASA Grade ? Assessment: II - A patient with ? mild systemic disease. After ? reviewing the risks and benefits, ? the patient was deemed in ? satisfactory condition to undergo ? the procedure. ? The procedure, indications, ? benefits, risks and alternatives ? were explained to the patient. ? Specifically discussed were ? potential complications including, ? but not limited to, bleeding, ? perforation, infection, missing a ? cancer, and adverse medication ? reactions. The Endoscope was ? introduced through the mouth, and ? advanced to the second part of ? duodenum The upper GI endoscopy was ? accomplished without difficulty. ? The patient tolerated the procedure ? well. ? Findings: ? Esophagogastric landmarks were identified: the Z-line ? was found at 40 cm, the upper extent of the gastric ? folds was found at 40 cm and the site of hiatal ? narrowing was found at 40 cm from the incisors. ? The examined esophagus was normal. ? A few less than 5 mm sessile fundic gland polyps were ? found in the gastric body. ? The examined duodenum was normal. ? Moderate Sedation: ? Not applicable - See Anesthesia documentation Impression: ?- Esophagogastric landmarks ? identified. ? - Normal esophagus. ? - A few fundic gland polyps. ? - Normal examined duodenum. ? - No specimens collected. Recommendation: ?- Return to referring physician. ? Attending Participation: ? I personally performed the entire procedure. ? Maggie Selby MD Maggie Selby MD 10/30/2021 9:08:13 AM This report has been signed electronically. Number of Addenda: 0 Note Initiated On: 10/30/2021 8:35 AM PROVATION 10/30/2021 8:35 AM EDT Bharat Kaiser MD GENERAL SURGICAL OR DERABLES PROVATION documented in this encounter Visit Diagnoses Diagnosis Dysphagia, unspecified type Regurgitation of food Weight loss Loss of weight Odynophagia Dysphagia, unspecified documented in this encounter Administered Medications Inactive Administered Medications - up to 3 most recent administrations Medication Order MAR Action Action Date Dose Rate Site lactated ringers infusion 100 mL/hr, Intravenous, CONTINUOUS, Starting on Sat10/30/21 at 0830, Until Sat10/30/21 at 1013, Endoscopy (Day of Procedure) New Bag 10/30/2021 8:30 AM EDT 100 mL/hr 100 mL/hr documented in this encounter Active and Recently Administered Medications Times are shown in EDT. Continuous Medication Order 10/28/2021 10/29/2021 10/30/2021 lactated ringers infusion (CANCELED) 100 mL/hr, Intravenous, CONTINUOUS, Starting on Sat10/30/21 at 0830, Until Sat10/30/21 at 1013, Endoscopy (Day of Procedure) 0830 (New Bag - Prov ider: Elan Romero RN) documented in this encounter Care Teams Electrical Maintenance Supervisor Relationship Specialty Start Date End Date Harriet Foley MD [address] [place] [id number] PCP - General Family Medicine 08/29/21 documented as of this encounter
--- OUTSIDE RECORDS SUMMARY | 2024-01-17 01:00 | XMS_ITS | Encounter Summary ---
Author Organization [facility] [place] [address] Care Team Providers Care Ed Special Education Teacher Name Role Phone Harriet Foley MD Primary Care Provider [phone] Encounter Details Date Type Department Care Team (Late st Contact Info) Description 11/03/2021 Telephone [place] [id number] Yessy Potter Social History Tobacco Use Types Packs/Day Years [...] on file documented as of this encounter Miscellaneous Notes * Telephone Encounter - Yessy Potter - 11/03/2021 10:45 AM EDT Called patient. Scheduled telephone follow-up visit (from wait list) with Keron Wilkerson APRN for 11/07/21 at 3:30pm. (This is a follow-up after her EGD & Colonoscopy which was done on 10/30/21.)[cancelled in-person visit on 12/08/21 at 1:00pm, as patient will being meeting (via phone) with Keron Wilkerson APRN on 11/07/21] documented in this encounter Plan of Treatment Not on file documented as of this encounter Visit Diagnoses Not on filedocumented in this encounter Care Teams Ed Special Education Teacher Relationship Specialty Start Date End Date Harriet Foley MD [address] [place] [address] PCP - General Family Medicine 08/29/21 documented as of this encounter
--- OUTSIDE RECORDS SUMMARY | 2024-01-17 01:00 | XMS_ITS | Encounter Summary ---
Author Organization [facility] Address [address] [place] [address] Care Team Providers Care Food Mobile Driver Name Role Phone Unavailable Primary Care Provider Unavailabl e Encounter Details Date Type Department Care Team (Late st Contact Info) Description 02/18/2015 Results Only [facility] [phone] Mateus Mendes, DO [address] [facility] [address] [place] [id number] Social History Tobacco Use Types Packs/Day Years Used Date Smoking Tobacco: Never Assessed Sex and Gender Information Value Date Recorded Sex Assigned at Not on file Gender Identity Not on file Sexual Orientation Not on file documented as of this encounter Plan of Treatment Not on file documented as of this encounter Procedures Procedure Name Priority Date/Time Associated Diagnosis Comments SURGICAL PATHOLOGY Routine 02/18/2015 9:17 EDT documented in this encounter Results * SURGICAL PATHOLOGY (02/18/2015 9:17 EDT) Pathology Report: SURGICAL PATHOLOGY REPORT Reports generated via electronic interface contain original data; however they are lacking the format of the original report. Caution should be taken when reading/interpret ing unformatted reports. Name: ? MARIA DEL CARMEN RODRIGUEZ ? Accession #: ? [id number] ? : ? 1955 (Age: 60) ??F ? Collect Date: ? 02/18/2015 ? Location: ? [facility] ? Receive Date: ? 02/19/2015 ? Provider: MATEUS MENDES DO Copy to: KARRI PACHECO MD ? Final Pathologic Diagnosis: A. stomach, antrum, BIOPSY: - ??Antral and transitional mucosa with mild reactive gastropathy. - ??No evidence of Helicobacter pylori on H&E. B. esophagus, distal, biopsy: - ??Squamous mucosa with features compatible with reflux esophagitis. C. esophagus, mid, biopsy: - ??Squamous mucosa with no significant abnormality. ?? D. esophagus, proximal, biopsy: - ??Squamous mucosa with no significant abnormality. Document reviewed and electronically signed by: CONSTANCE MARTINEZ MD Report ??Date: 02/23/2015 18:28 By the signature above, the attending physician certifies that he/she has personally conducted a gross and/or microscopic examination of the described specimens and rendered or confirmed the above diagnosis. Specimen(s) Received: A. ?Antrum bx (#1) B. ? Distal esoph bx (#2) C. ? Mid esophagus (#3) D. ? Proximal esophagus (#4) Clinical History: Dysphagia, GERD Gross Description: A. ?Received in formalin labelled with proper patient identification (initials S, B) and antrum bx are two pink-lindquist tissues (0.4 x 0.3 x 0.1 cm and 0.6 x 0.2 x 0.1 cm). Entirely submitted in A1. B. ?Received in formalin labelled with proper patient identification (initials S, B) and distal esoph bx are three lindquist- white tissues (0.2 x 0.2 x 0.1 cm to 0.4 x 0.2 x 0.1 cm). Entirely submitted in B1. C. ?Received in formalin labelled with proper patient identification (initials S, B) and mid esophagus bx are two lindquist-white tissues (0.2 x 0.2 x 0.1 cm and 0.4 x 0.2 x 0.1 cm). Entirely submitted in C1. D. ?Received in formalin labelled with proper patient identification (initials S, B) and proximal esoph bx are two lindquist-white tissues (0.2 x 0.1 x 0.1 cm and 0.3 x 0.2 x 0.1 cm). Entirely submitted in D1. Zoila Lamb 02/21/2015 1:09 PM End of Report [facility] 02/18/2015 9:17 EDT 02/19/2015 9:17 EDT Mateus Mendes DO PATHOLOGY ORDER DEMETRIO [facility] [address] [place] [address] documented in this encounter Visit Diagnoses Not on filedocumented in this encounter
--- OUTSIDE RECORDS SUMMARY | 2024-01-17 01:00 | XMS_ITS | Encounter Summary ---
Author Organization [facility] Address [address] [place] [address] Care Team Providers Care Ct Tech Name Role Phone Unavailable Primary Care Provider Unavailabl e Encounter Details Date Type Department Care Team (Latest Contact Info) Description 02/18/2015 15:38 EDT - 02/18/2015 23:59 EDT Hospital Encounter [address] [address] Unknown, Provider, Discharge Disposition: Home or Self Care Social History Tobacco Use Types Packs/Day Years Used Date Smoking Tobacco: Never Assessed Sex and Gender Information Value Date Recorded Sex Assigned at Not on file Gender Identity Not on file Sexual Orientation Not on file documented as of this encounter Discharge Disposition Disposition Code Departure Means Destination Home or Self Long Term documented in this encounter Plan of Treatment Not on file documented as of this encounter Visit Diagnoses Not on filedocumented in this encounter
--- OUTSIDE RECORDS SUMMARY | 2024-01-17 01:00 | XMS_ITS | Encounter Summary ---
Author Organization [facility] Address [facility] [place] [address] Care Team Providers Care Human Development Professor Name Role Phone Harriet Foley MD Primary Care Provider [phone] Encounter Details Date Type Department Care Team (Latest Contact Info) Description 10/30/2021 7:35 AM EDT - 10/30/2021 10:21 AM EDT Hospital En[place] [address] [place] [address] Discharge Disposition: Home Social History Tobacco Use Types Packs/Day Years [...] the day after the procedure, use an fray-fpf-dfxzrtv spray to numb your throat. Sucking on [...] occurs, please contact your Doctor. Please call [phone] before 8pm Mon-Fri with problems, questions or concerns. If you call after 8pm or on weekends, call the Hospital at [phone] and ask to speak to the Health Care Specialist knitting demonstrator and the electronic plotting system operator will contact that person for you. When should you call for help? Call [phone] anytime you think you may need emergency [...] any problems. Where can you learn more? [facility] View your After Visit Summary and more online at [email or web address] If you would like to provide feedback about your hospital experience, please call the Office of Patient and Family Relations at . If you have received this After Visit Summary in error, please immediately return it in person to the department, or notify the [facility] Privacy Office by calling toll free at between the hours of 8AM and 5PM to arrange for our retrieval of the documents at no cost to you. Content Version: 12.2 ?? 7531-2719 [employer]. Care instructions adapted under license by [facility]. If you have questions about a medical condition or this instruction, always ask your healthcare professional. [employer] disclaims any warranty or liability for your [...] occurs, please contact your Doctor. Please call [phone] before 8pm Mon-Fri with problems, questions or concerns. If you call after 8pm or on weekends, call the Hospital at [phone] and ask to speak to the Health Care Specialist knitting demonstrator and the electronic plotting system operator will contact that person for you. When should you call for help? Call [phone] anytime you think you may need emergency [...] any problems. Where can you learn more? [facility] View your After Visit Summary and more online at [email or web address] If you would like to provide feedback about your hospital experience, please call the Office of Patient and Family Relations at . If you have received this After Visit Summary in error, please immediately return it in person to the department, or notify the [facility] Privacy Office by calling toll free at between the hours of 8AM and 5PM to arrange for our retrieval of the documents at no cost to you. Content Version: 12.2 ?? 6478-7250 [employer]. Care instructions adapted under license by [facility]. If you have questions about a medical condition or this instruction, always ask your healthcare professional. [employer] disclaims any warranty or liability for your [...] PATHOLOGY Routine 10/30/2021 9:27 AM EDT Colonoscopy, Harrison García, Snare ([id number]) 10/30/2021 8:57 AM EDT Dysphagia, unspecified type Regurgitation of food Weight loss Odynophagia Upper GI Endoscopy, Diagnostic ([id number]) 10/30/2021 8:57 AM EDT Dysphagia, unspecified type Regurgitation of food Weight loss Odynophagia COLONOSCOPY Routine 10/30/2021 8:36 AM EDT UPPER GI ENDOSCOPY Routine 10/30/2021 8: 35 AM EDT documented in this encounter Results * Surgical Pathology Report (10/30/2021 9:27 AM EDT) Surgical Pathology Report [id number] ? Location: 4T; EA07; A The signing pathologist has (i) examined the relevant preparation(s) for the specimen(s) and (ii) rendered or confirmed the diagnosis(es). . ?Surgical Pathology DIAGNOSIS A - Ascending colon polyp, resection: - ??Colonic mucosa with lymphoid aggregate. Additional levels examined. Electronically signed by: ?Cecily Arellano MD Verified: ??11/01/2021 19:42 ??Pathologist Performed at: ??-[facility] [place] [facility] [place], [place], [place] SPECIMEN(S) SUBMITTED A - Ascending colon polyp, resection (1) CLINICAL INFORMATION 66 year-old female; Hx of constipation SPECIMEN PROCESSING A - Labeled/Fixative : Ascending colon polyp, formalin. Quantity/Size: Single, 0.6 cm. Tissue Description: Soft, pale lindquist tissue. Sections/Process ing: Submitted en toto ??in 1 cassette labeled A1. ??mnd [facility] 10/30/2021 9:27 AM EDT Maggie Selby MD PATHOLOGY/CYTOLOGY O CHRISTIAN Performing Organization Address [facility] Co de Phone Number [facility] [place] [address] * Specimen to Pathology (10/30/2021 9:27 AM EDT) AP Specimen 10/30/2021 9:27 AM EDT 10/30/2021 9:27 AM EDT Narrative [facility] - 10/30/2021 9:27 AM EDT Specimen requisition ordered. ??Separate Pathology report to follow Maggie Selby MD PATHOLOGY/CYTOLOGY O CHRISTIAN Performing Organization Address [facility] Co de Phone Number [facility] [place] [address] * COLONOSCOPY (10/30/2021 8:36 AM EDT) COLONOSCOPY [facility] Endoscopy Procedure Date: 10/30/2021 8:36 AM ? Patient Name: Maria Del Carmen Rodriguez ? Date of : 1955 ? Age: 66 ? Order #: [id number] ? Instrument Name: [id number] ? Procedure: ? Colonoscopy Indications: ? Constipation Providers: ? Maggie Selby MD, Ayanna Glover, ? Kishore Davis, Computer Security Manager Referring MD: ?Bharat Kaiser MD Medicines: [...] ? was evaluated using the BBPS ? ([place] Bowel Preparation Scale) ? with scores of: [...] Procedure Code(s): ? --- Professional --- ? 68046, Colonoscopy, flexible; with ? removal of tumor(s), polyp(s), or ? other lesion(s) by snare technique CPT copyright 2021 [employer]. All rights reserved. The codes documented in this report are preliminary and upon innovation analyst review may be revised to meet current [...] (10/30/2021 8:35 AM EDT) UPPER GI ENDOSCOPY [facility] Endoscopy Procedure Date: 10/30/2021 8:35 AM ? Patient Name: Maria Del Carmen Rodriguez ? Date of : 1955 ? Age: 66 ? Order #: [id number] ? Instrument Name: [id number] ? Procedure: ? Upper GI endoscopy Indications: [...] PROVATION documented in this encounter Visit Diagnoses Not on filedocumented in this encounter Administered Medications Inactive Administered [...] RN) documented in this encounter Care Teams Human Development Professor Relationship Specialty Start Date End Date Harreit Foley MD [address] [place] [address] PCP - General Family Medicine 08/29/21 documented as of this encounter
--- OUTSIDE RECORDS SUMMARY | 2024-01-17 01:00 | XMS_ITS | Clinical Summary ---
Author Organization [facility] Address [facility] [place] [address] Care Team Providers Care Labor Economist Name Role Phone Harriet Foley MD Primary Care Provider [phone] Allergies Active Allergy Reactions Criticality Noted Date Comments Amoxicillin Trihydrate Penicillins 10/26/2021 Medications Medication Sig Dispensed Refills Start Date End Date Status divalproex (DEPAKOTE) 500 mg EC tablet Take by mouth daily. 07/12/2006 Active ibuprofen (ADVIL;MOTRIN) 600 mg tablet 600MG = 1 Tablet(s), PO, Four times daily 07/12/2006 Active traZODone (DESYREL) 100 mg tablet 100MG = 1 Tablet(s), PO, QHS 07/12/2006 Active cholecalciferol, Vitamin D3, 2,000 unit Tablet 0 08/23/2016 Active OYSTER SHELL CALCIUM 500 500 mg calcium (1,250 mg) Tablet 1 08/23/2016 Active cyanocobalamin 1,000 mcg Tablet take 1 tablet by mouth daily 0 08/23/2016 Active ferrous sulfate 325 mg (65 mg iron) Tablet take 1 tablet by mouth daily 0 08/23/2016 Active sucralfate (CARAFATE) 1 gram Tablet take 1 tablet by mouth twice a day 0 08/27/2016 Active diphenhydrAMINE/alumin um-magnesium hydroxide with simethicone/lidocaine (BMX) oral suspension Take 10 mLs by mouth 3 times daily as needed. 500 mL 1 01/24/2017 Active gabapentin (Neurontin) 100 mg Capsule Take 200 mg by mouth daily. 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/2012 Traumatic arthritis of knee 04/03/2013 Immunizations Name Administration Dates Next Due Influenza Vaccine, Whole 05/06/2006 TD Adult 05/06/2006,03/01/1995 Family History Medical History Relation Comments Esophageal Cancer Mother Colorectal Cancer Neg Hx Inflammatory Bowel Disease Neg Hx Relation Status Comments Mother Social History Tobacco Use Types Packs/Day Years Used Date Smoking Tobacco: Former Cigarettes 3 4 Smokeless Tobacco: Never Comments:Quit in 1973 Alcohol Use Standard Drinks/Week Comments No 0 (1 standard drink = 0.6 oz pur e alcohol) Sex and Gender Information Value Date Recorded Sex Assigned at Not on file Gender Identity Not on file Sexual Orientation Not on file Last Filed Vital Signs Vital Sign Reading [...] Mass Index 18.54 10/30/2021 8:09 AM EDT Plan of Treatment Health Maintenance Due Date Last Done Comments CT Colonography 1955 FIT DNA 1955 FIT 1955 Sigmoidoscopy 1955 Hepatitis C Screening 1975 Tdap adult 01/13/1976 Breast Cancer Share Decision Needed 1997 Breast Cancer screening 1997 Zoster vaccine (1 of 2) 2007 Advance Directive 01/13/2012 Tetanus vaccine 05/06/2016 05/06/2006, 03/01/1995 Bone Density Scan 2022 Pneumoccocal Vaccine: 65+ (1 of 1 - PCV) 2022 Covid-19 Vaccine ( season) 2023 Influenza (Flu) vaccine (1 o f 1 - Influenza standard series) 03/01/2024 05/06/2006 Colonoscopy 10/31/2031 10/30/2021, 10/30/2021 Colorectal Cancer Screening 10/31/2031 Sigmoidoscopy (10 year) with FIT yearly 10/31/2031 0 10/30/2021, 10/30/2021 Procedures Procedure Name Priority Date/Time Associated Diagnosis Comments COLONOSCOPY Routine 10/30/2021 8:36 AM EDT from Last 3 Months or Most Recently Relevant to Health Maintenance Results * COLONOSCOPY (10/30/2021 8:36 AM EDT) COLONOSCOPY [facility] Endoscopy Procedure Date: 10/30/2021 8:36 AM ? Patient Name: Maria Del Carmen Rodriguez ? N: [id number] ? Date of : 1955 ? Age: 66 ? Order #: [id number] ? Instrument Name: ISABELLE [id number] ? Procedure: ? Colonoscopy Indications: ? Constipation Providers: ? Maggie Selby MD, Ayanna Glover, ? Kishore Davis, Optical Glass Silverer Referring MD: ?Bharat Kaiser MD Medicines: ? [...] ? was evaluated using the BBPS ? ([place] Bowel Preparation Scale) ? with scores of: [...] Procedure Code(s): ? --- Professional --- ? 79971, Colonoscopy, flexible; with ? removal of tumor(s), polyp(s), or ? other lesion(s) by snare technique CPT copyright 2020 [employer]. All rights reserved. The codes documented in this report are preliminary and upon fruit vendor review may be revised to meet current compliance requirements. Attending Participation: ? I personally performed the entire procedure. ? Maggie Selby MD _ Maggie Selby MD 10/30/2021 9:30:51 AM This report has been signed electronically. Number of Addenda: 0 Note Initiated On: 10/30/2021 8:36 AM PROVATION 10/30/2021 8:36 AM EDT Bharat Kaiser MD GENERAL SURGICAL OR DERABLES PROVATION from Last 3 Months or Most Recently Relevant to Health Maintenance Advance Directives Documents on File Type Date Recorded Patient Blending Operator Expl anation Personal Blending Operator 08/09/2022 7:43 AM conrad rodriguez Personal Blending Operator 08/09/2022 7:43 AM chel rodriguez - verbal only Personal Blending Operator 08/09/2022 7:43 AM kellen abebe - verbal only Personal Blending Operator 08/09/2022 7:43 AM ladarius alejandro - verbal only Personal Blending Operator 08/09/2022 7:43 AM brianda chaudhry - verbal only Personal Blending Operator 08/09/2022 7:43 AM kellen rodriguez Care Teams Labor Economist Relationship Specialty Start Date End Date Harriet Foley MD [address] [place] [address] PCP - General Family Medicine 08/29/21
--- OUTSIDE RECORDS SUMMARY | 2024-01-17 01:00 | XMS_ITS | Encounter Summary ---
[place] [address] Care Team Providers Care Coder Name Role Phone Harriet Foley MD Primary Care Provider [phone] Encounter Details Date Type Department Care Team (Late st Contact Info) Description 10/26/2021 Telephone [place] [id number] Yessy Potter Social History Tobacco Use Types [...] * Telephone Encounter - Yessy Potter - 10/26/2021 4:37 PM EDT Maria Del Carmen Rodriguez [id number] EGD/Colonoscopy/Anesthesia-within 1 week with next available provider-per Keron Wilkerson APRN 10/26/21 Diagnosis/Indication: Dysphagia, odynophagia, regurgitation of food, weight loss, family history of esophagaeal cancer (mother), change in bowel habits, constipation. r/o EOE 1. Have you ever had a/an Upper Endoscopy & Colonoscopy before? No 2. Do you take any blood thinners or have you been diagnosed with a bleeding disorder that increases your risk of bleeding with procedures? No 3. Do you have a Pacemaker or Defibrillator device? No 4. Are you a diabetic? No 5. Do you have any Allergies to Eggs, Latex or Medications? Yes: in chart 6. Do you take any Oral Iron Supplements (Including multi-vitamins)? No 7. Do you have a history of three or more abdominal surgeries? No 8. Have you had a problem with sedation or anesthesia? No 9. Do you use a c-pap machine or oxygen tank? C-Pap (not currently using because there was a recall on her machine) 10. Do you take prescription narcotic pain medications, including suboxone or methodone? No 11. Do you have a preference regarding the gender of your provider? Yes: Female 12. Is there any other information you would like to us to note for the provider and nursing team who will perform your case? Yes: patient has a seizure disorder 13. Say to patient: You must have a responsible constitution party who will drive you to your procedure, stay [place] for the entire duration of your procedure, and drive you home from your procedure? yes *Please Verify the height and weight, and adjust if height and/or weight have changed* Estimated body mass index is 22.28 kg/m?? as calculated from the following: Height as of 01/24/17: 160 cm (5' 3). Weight as of 01/24/17: 57.1 kg (125 lb 12.8 oz). Age:66 y.o. documented in this encounter Plan of Treatment Not on file documented as of this encounter Visit Diagnoses Not on filedocumented in this encounter Care Teams Coder Relationship Specialty Start Date End Date Harriet Foley MD [address] [place] [address] [place] [address] PCP - General Family Medicine 08/29/21 documented as of this encounter
--- OUTSIDE RECORDS SUMMARY | 2024-01-17 01:00 | XMS_ITS | Encounter Summary ---
[place] [address] Care Team Providers Care Project Controls Specialist Name Role Phone Harriet Foley MD Primary Care Provider [phone] Encounter Details Date Type Department Care Team (Late st Contact Info) Description 12/11/2021 Telephone [place] [phone] Aarti Urrutia Social History Tobacco Use Types Packs/Day Years [...] encounter Miscellaneous Notes * Telephone Encounter - Aarti Urrutia - 12/12/2021 3:19 PM EDT Scheduled for 03/26/22 * Telephone Encounter - Aarti Urrutia - 12/11/2021 4:56 PM EDT Left message for patient to contact the office for scheduling. The patient will be due for a 3 weekgif with MINGO Wilkerson (recall) following the manometries scheduled for 03/06/22. documented in this encounter Plan of Treatment Not on file documented as of this encounter Visit Diagnoses Not on filedocumented in this encounter Care Teams Project Controls Specialist Relationship Specialty Start Date End Date Harriet Foley MD [address] [place] [address] PCP - General Family Medicine 08/29/21 documented as of this encounter
--- OUTSIDE RECORDS SUMMARY | 2024-01-17 01:00 | XMS_ITS | Encounter Summary ---
Author Organization [facility] [place] [address] Care Team Providers Care Director Of Financial Planning Name Role Phone Harriet Foley MD Primary Care Provider [phone] Encounter Details Date Type Department Care Team (Late st Contact Info) Description 10/27/2021 [place] [address] Parmjit Wallace Social History Tobacco Use Types Packs/Day Years [...] encounter Miscellaneous Notes * Telephone Encounter - Parmjit Wallace - 10/27/2021 10:02 AM EDT Inbound/Outbound: Outbound Spoke to Patient/Left Message: Left message Notes: Outbound call to patient to schedule motility lab testing from referral. Left message askingfor callback to schedule. Return calls can be handled by: Motility Lab Molasses And Caramel Operator documented in this encounter Plan of Treatment Not on file documented as of this encounter Visit Diagnoses Not on filedocumented in this encounter Care Teams Director Of Financial Planning Relationship Specialty Start Date End Date Harriet Foley MD [address] [place] [address] PCP - General Family Medicine 08/29/21 documented as of this encounter
--- OUTSIDE RECORDS SUMMARY | 2024-01-17 01:00 | XMS_ITS | Encounter Summary ---
Author Organization [facility] Address [address] [place] [address] Care Team Providers Care Patient Transporter Name Role Phone Karri Meléndez MD Primary Care Provider [phone] Encounter Details Date Type Department Care Team (Late st Contact Info) Description 08/01/2017 Results Only [facility] [phone] Karri Meléndez MD [address] [place] [address] [address] [place] [address] Social History Tobacco Use Types Packs/Day Years [...] Diagnosis Comments PAP TEST- RESULT ONLY Routine 08/01/2017 0:00 EST documented in this encounter Results * PAP TEST- RESULT ONLY (08/01/2017 0:00 EST) Pathology Report: CYTOPATHOLOGY REPORT Reports generated via electronic interface contain original data; however they are lacking the format of the original report. Caution should be taken when reading/interpreti ng unformatted reports. Name: ? MARIA DEL CARMEN RODRIGUEZ ? Accession #: ? [id number] ? : ? 1955 (Age: 62) ??F ?Collect Date: ? 08/01/2017 ? Location: ? [facility] ? Receive Date: ? 08/05/2017 ? Provider: KARRI MELÉNDEZ MD Copy to: ? Final Report SPECIMEN ADEQUACY ? Satisfactory for Evaluation - assessment of transformation zone component not applicable ( e.g. atrophy, vaginal sample, hysterectomy) GENERAL CATEGORIZATION ? Negative for Intraepithelial Lesion or Malignancy ?? Menstrual/Pregnanc y Status: ??Post Menopausal Hormonal/Contracep tive status: Tubal ligation Specimen/Source: ??Pap Test, Cervix/Endocervix, ThinPrep Imaging System with manual evaluation Document reviewed and electronically signed by: ? ELOISE Amaro(ASCP) ? Report ??Date: 08/09/2017 15:15 HPV with Pap Test ? Date Ordered: ? 08/09/2017 ? Status: ?? Signed Out ?Date Complete: ? 08/12/2017 ? By: ??System Interface ? Date Reported: ? 08/12/2017 ? Interpretation RESULT: Negative for HPV. No E6 or E7 mRNA is detected from HPV types 16,18,31,33,35, 39,45,51,52,56,58, 59,66, and 68 by animal physiologist mediated amplification. Comments Document reviewed and electronically signed by: ? System Interface ? Report date: 08/12/2017 By the signature above, the attending physician certifies that he/she has personally conducted a gross and/or microscopic examination of the described specimens and rendered or confirmed the above diagnosis. End of Report [facility] 08/01/2017 08/05/2017 Karri Meléndez MD PATHOLOGY ORDERABLE S [facility] [address] [place] [address] documented in this encounter Visit Diagnoses Not on filedocumented in this encounter Care Teams Patient Transporter Relationship Specialty Start Date End Date Karri Meléndez MD [address] [place], [place] [id number] PCP - General 02/23/15 documented as of this encounter
--- OUTSIDE RECORDS SUMMARY | 2024-01-17 01:00 | XMS_ITS | Referral Summary ---
Author Organization [facility] Address [address] [place] [address] Care Team Providers Care Military Education Coordinator Name Role Phone Leeann Meléndez MD Primary Care Provider [phone] Social History Tobacco Use Types Packs/Day Years Used Date Smoking Tobacco: Never Assessed Interpersonal Safety Answer Date Record ed Physically Hurt Never 01/31/2020 Verbally Threaten Not on file 01/31/2020 Sex and Gender Information Value Date Recorded Sex Assigned at Not on file Gender Identity Not on file Sexual Orientation Not on file Plan of Treatment Not on file Care Teams Military Education Coordinator Relationship Specialty Start Date End Date Leeann Meléndez MD [address] [place] [address] PCP - General 02/23/15
--- OUTSIDE RECORDS SUMMARY | 2024-01-17 01:00 | XMS_ITS | Encounter Summary ---
Author Organization [facility] [place] [address] Care Team Providers Care Weigh Tank Operator Name Role Phone Harriet Foley MD Primary Care Provider [phone] Encounter Details Date Type Department Care Team (Late st Contact Info) Description 10/30/2021 8:57 AM EDT Anesthesia [place] [address] Adams Gonzalez MD [facility] [place] [place] [address] Anesthesia Record Procedure Summary Procedure Name Responsible Anesthesiologist Anesthesia Start Time Anesthesia Stop Time EGD, UPPER GI ENDOSCOPY (WRVU 2.09) (Trunk) Adams Gonzalez MD 10/30/21 0857 10/30/21 0928 Events Date Time Event Comment 10/30/2021 0857 AN Verify 0857 Start 0857 An Start Data 0901 An Induction 0901 Anesthesia Ready 0904 Procedure Start 0928 Procedure Stop 0928 an stop data 0928 Recovery or ICU Handoff Sue ent care was transferred to the destination unit staff after review of the patient's medical history, current anesthetic/surgical status and plan, according to the Provider Handoff Checklist. 0928 Stop 11/02/2021 0039 Meds Name Total Propofol 50 mg Propofol INF 205.8 mg Lactated Ringers 0 mL * Agents Name O2 Air N2O O2 Auxiliary Flowmeter 1 * Blood No blood administrations on file. Lines, Drains, and Airways Type Details Placement Removal (RETIRED) Peripheral IV Line - Single Lumen 10/30/21; 08; median cubital vein (antecubital fossa), right; veob-ajh-avpspd catheter system; 22 gauge; 10/30/21; 1005 10/30/21 0821 by Elan Romero, RN 10/30/21 1005 by Elan Romero, RN documented in this encounter Social History Tobacco Use Types Packs/Day Years [...] on file documented as of this encounter OR Notes * Anesthesia Postprocedure Evaluation - Adams Gonzalez MD - 10/30/2021 9:57 AM EDT Department of Anesthesiology Post-procedure Note Patient: Maria Del Carmen Rodriguez Procedure Summary Date: 10/30/21 Room / Location: [facility] / [facility] Anesthesia Start: 856 Anesthesia Stop: 927 Procedures: EGD, UPPER GI ENDOSCOPY (N/A Trunk) COLONOSCOPY, POLYPECTOMY, REMOVAL LESION BY SNARE (WRVU 4.67) (N/A Trunk) Diagnosis: Dysphagia, unspecified type Regurgitation of food Weight loss Odynophagia (Dysphagia, odynophagia, regurgitation of food, weight loss, family history of esophagaeal cancer (mother), change in bowel habits, constipation. r/o EOE) Surgeons: Maggie Selby MD Responsible Provider: Adams Gonzalez MD Anesthesia Type: Not recorded ASA Status: Not recorded All Anesthesia Providers: Anesthesiologist: Adams Gonzalez MD TELEHEALTH NURSE: Dom Burger CRNA Vitals Value Taken Time BP 102/64 10/30/21 1000 Temp Pulse Resp 18 10/30/21 1000 SpO2 100 % 10/30/21 1001 Pain Level 0 10/30/21 1000 Vitals shown include unvalidated device data. Patient Location: PACU/[facility] Level of Consciousness: Awake and Alert Pain Management: Satisfactory Analgesia PONV: None Cardiovascular Status: At Baseline and Hemodynamically Stable Respiratory Status: At Baseline and Room Air Postoperative Fluid Status: Intravascular EUvolemia Possible Anesthetic Complications: NONE apparent at time of evaluation Final Primary Anesthesia Type: MAC (The anesthetic type performed was the same as planned.) Comments: ADAMS GONZALEZ MD * Anesthesia Preprocedure Evaluation - Adams Gonzalez MD - 10/29/2021 11:05 PM EDT Pre-Anesthesia Evaluation for: Maria Del Carmen Rodriguez a 66 y.o. female. Procedure(s): EGD, UPPER GI ENDOSCOPY COLONOSCOPY, DIAGNOSTIC Patient Active Problem List Diagnosis Date Noted ??? Pancytopenia 04/03/2013 ??? Anemia 04/03/2013 ??? Seizures 04/03/2013 ??? S/P right unicompartmental knee replacement 04/03/2013 ??? Traumatic arthritis of knee 04/03/2013 Past Medical History: Diagnosis Date ??? Hypertension ??? Seizures ??? Sleep apnea Past Surgical History: Procedure Laterality Date ??? ANKLE SURGERY Right ??? KNEE SURGERY Bilateral Replacements Social History Tobacco Use ??? Smoking status: Former Smoker Packs/day: 3.00 Years: 4.00 Pack years: 12.00 Types: Cigarettes ??? Smokeless tobacco: Never Used ??? Tobacco comment: Quit in 1973 Substance Use Topics ??? Alcohol use: No Social History Substance and Sexual Activity Drug Use No Allergies Allergen Reactions ??? Amoxicillin Trihydrate ??? Penicillins Medications: MAR and/or home medications have been reviewed. Physical Exam: Preprocedure Vitals Current as of 10/29/21 2305 No BP, pulse, respiration, SpO2, or temperature recorded. Height: Weight: BMI: IBW: Airway Assessment: Mallampati: II TM distance: >3 FB Neck ROM: full Cardiovascular Assessment: Rhythm: regular Rate: normal Pulmonary Assessment: unlabored breathing Dental Assessment: Misc Assessment: Patient is wearing No contact(s). IV access: Peripheral line Last Filed Perioperative Cognitive Screening None Anesthesia Plan: ASA 3 MAC, with a(n) intravenous induction Region - Other Informed Consent: Anesthetic plan and risks discussed with patient. Use of blood products discussed with patient who consented to blood products. Plan discussed with TELEHEALTH NURSE. Attending Note: Maria Del Carmen Rodriguez is a 66 y.o. female who presents for the above procedure in the setting of dysphagiaand weight loss. Past medical history was reviewed and is significant for: - Seizures, none for several months - Pancytopenia - Prior tobacco Anesthestic PMH: Denies complications NPO: Appropriate-- ROS positive for: neg METS: ~4, largely sedentary Cardiac: No CP or SOB with exertion Labs: Lab Results Component Value Date WBC 3.9 (L) 04/03/2013 HCT 35.7 04/03/2013 K 3.6 04/03/2013 CREATININE 0.80 04/03/2013 No results for input(s): ABORH in the last 7068 hours. Anesthestic Plan: Plan MAC, standard ASA monitors, PIV after discussion of benefits, indications, and risks (including but not limited to sore throat, dental injury, prolonged intubation, cardiac or neurologic event). Adams Gonzalez MD Anesthesia Screening documented in this encounter Plan of Treatment Not on file documented as of this encounter Visit Diagnoses Not on filedocumented in this encounter Administered Medications Inactive Administered Medications - up to 3 most recent administrations Medication Order MAR Action Action Date Dose Rate Site lactated ringers infusion Intravenous, CONTINUOUS PRN, Starting on Sat10/30/21 at 0857, Until Sat10/30/21 at 0928, Anesthesia Intra-op New Bag 10/30/2021 8:57 AM EDT propofoL (Diprivan) (10 mg/mL) infusion Intravenous, CONTINUOUS PRN, Starting on Sat10/30/21 at 0901, Until Sat10/30/21 at 0928, Anesthesia Intra-op, Routine New Bag 10/30/2021 9:01 AM EDT 200 mcg/kg/min 58.8 mL/hr propofoL (Diprivan) 10 mg/mL bolus injection (Anesthesia) Intravenous, PRN, Starting on Sat10/30/21 at 0901, Until Sat10/30/21 at 0928, Anesthesia Intra-op Given 10/30/2021 9:01 AM EDT 50 mg documented in this encounter Care Teams Weigh Tank Operator Relationship Specialty Start Date End Date Harriet Foley MD [address] [place] [address] PCP - General Family Medicine 08/29/21 documented as of this encounter
--- OUTSIDE RECORDS SUMMARY | 2024-01-17 01:01 | XMS_ITS | Encounter Summary ---
Author Organization [facility] [place] [address] Care Team Providers Care Welt Stitch Cleaner Name Role Phone Leeann Meléndez MD Primary Care Provider Reason for Referral * Diagnostic Test (Routine) - Closed Specialty Diagnoses / Procedures Referred By Darius garcia Referred To Contact Radiology Diagnoses Glossodynia Oropharyngeal dysphagia Odynophagia Procedures MRI Neck wwo Contrast MRI Soft Tissue Neck w Contrast (Generic) Francisco Avila MD [facility] [place] [address] [place] [address] Referral ID Status Reason Start Date Expiration Date V isits Requested Visits Authorized [id number] Closed Specialty Service Requested 11/22/2016 02/20/2017 1 1 Reason for Visit * Diagnostic Test (Routine) - Closed Specialty Diagnoses / Procedures Referred By Darius garcia Referred To Contact Radiology Diagnoses Glossodynia Oropharyngeal dysphagia Odynophagia Procedures MRI Neck wwo Contrast MRI Soft Tissue Neck w Contrast (Generic) Francisco Avila MD [facility] [place] [address] [place] [address] Referral ID Status Reason Start Date Expiration Date V isits Requested Visits Authorized [id number] Closed Specialty Service Requested 11/22/2016 02/20/2017 1 1 Encounter Details Date Type Department Care Team (Latest Contact Info) Description 11/27/2016 12:12 PM EDT - 11/27/2016 11:59 PM EDT [place] [address] Francisco Avila MD [facility] [place] [address] Glossodynia; Oropharyngeal dysphagia; Odynophagia Discharge Disposition: Home Social History Tobacco Use Types Packs/Day Years Used Date Smoking Tobacco: Former Cigarettes 3 4 Comments:Quit in 1973 Alcohol Use Standard Drinks/Week Comments No 0 (1 standard drink = 0.6 oz pur e alcohol) Sex and Gender Information Value Date Recorded Sex Assigned at Not on file Gender Identity Not on file Sexual Orientation Not on file documented as of this encounter Medications at Time of Discharge Medication Sig Dispensed Refills Start Date End Date cholecalciferol, Vitamin D3, 2,000 unit Tablet 0 [...] 100MG = 1 Tablet(s), PO, QHS 07/12/2006 hydroCODone-acetaminophen (LORCET-HD) 5-500 mg per capsule 1 Capsule(s), PO, Four times daily 07/12/2006 01/24/2017 documented as of this encounter Plan of Treatment Not on file documented as of this encounter Procedures Procedure Name Priority Date/Time Associated Diagnosis Comments MRI NECK WITH/WO CONTRAST Routine 11/27/2016 2:13 PM EDT Glossodynia Oropharyngeal dysphagia Odynophagia documented in this encounter Results * MRI Neck wwo Contrast (11/27/2016 2:13 PM EDT) Anatomical Region Laterality Modality Neck Magnetic Resonan ce Impressions 11/27/2016 2:47 PM EDT IMPRESSION: No abnormal mass identified in the neck. In particular, the patient's tongue is normal appearing. I have personally reviewed the image(s) and the residents interpretation and agree with the findings, Hugh Yates at 11/27/2016 2:47 PM Narrative 11/27/2016 2:47 PM EDT EXAMINATION: MRI NECK WWO CONTRAST CLINICAL HISTORY: Right sided tongue pain with negative CT and physical exam. ?submucosal or intramuscular pathology. ??Odynophagia. TECHNIQUE: MRI of the neck performed before and after the IV administration of 6 cc Gadavist. COMPARISON: CT scan of the neck performed at an outside facility on December 06, 2015. FINDINGS: This examination is mildly marred by patient motion. No abnormal mass, signal, or enhancement identified in the tongue, floor of mouth, or elsewhere in the neck. The parotid glands, submandibular glands, and thyroid glands are normal appearing. No lymphadenopathy. No prevertebral soft tissue swelling. The paranasal sinuses and mastoid air cells are largely aerated. Vertebral body signal alteration is present in the mid and lower cervical spine. This may be due to islands of red marrow and/or degenerative change. Limited evaluation of visualized intracranial contents is grossly unremarkable. Procedure Note Hugh Yates MD - 11/27/2016 EXAMINATION: MRI NECK WWO CONTRAST CLINICAL HISTORY: Right sided tongue pain with negative CT and physicalexam. ?submucosal or intramuscular pathology. Odynophagia. TECHNIQUE: MRI of the neck performed before and after the IVadministration of 6 cc Gadavist. COMPARISON: CT scan of the neck performed at an outside facility on 2015. FINDINGS: This examination is mildly marred by patient motion. No abnormal mass, signal, or enhancement identified in the tongue, floorof mouth, or elsewhere in the neck. The parotid glands, submandibular glands,and thyroid glands are normal appearing. No lymphadenopathy. No prevertebralsoft tissue swelling. The paranasal sinuses and mastoid air cells are largely aerated. Vertebral body signal alteration is present in the mid and lower cervicalspine. This may be due to islands of red marrow and/or degenerative change. Limited evaluation of visualized intracranial contents is grosslyunremarkable. IMPRESSION IMPRESSION: No abnormal mass identified in the neck. In particular, the patient'stongue is normal appearing. I have personally reviewed the image(s) and the residents interpretationand agree with the findings, Hughnhan Yates at 11/27/2016 2:47 PM Francisco Avila MD IMG MRI ORDERABLES documented in this encounter Visit Diagnoses Diagnosis Glossodynia Oropharyngeal dysphagia Dysphagia, oropharyngeal phase Odynophagia Dysphagia, unspecified documented in this encounter Administered Medications Inactive Administered Medications - up to 3 most recent administrations Medication Order MAR Action Action Date Dose Rate Site gadobutrol (GADAVIST) 1 mMol/mL injection 6 mL 6 mL, Intravenous, ONCE PRN, 1 dose, Starting on 11/27/16 at 1227, Until 11/27/16 at 1348, Per Protocol, Routine Given 11/27/2016 1:48 PM EDT 6 mLs documented in this encounter Care Teams Welt Stitch Cleaner Relationship Specialty Start Date End Date Leeann Meléndez MD [address] [facility] [address] [place] [address] PCP - General 02/09/13 08/28/21 documented as of this encounter
--- OUTSIDE RECORDS SUMMARY | 2024-01-17 01:01 | XMS_ITS | Encounter Summary ---
Author Organization [facility] [place] [address] Care Team Providers Care Prizer Hand Name Role Phone Harriet Foley MD Primary Care Provider [phone] Reason for Referral * Consultation (Routine) - Closed Specialty Diagnoses / Procedures Referred By Darius garcia Referred To Contact Gastroenterology Diagnoses Dysphagia, unspecified type dysphagia Bharat Kaiser MD [address] [place] [address] [facility] [address] [place] [address] Referral ID Status Reason Start Date Expiration Date V isits Requested Visits Authorized [id number] Closed Consult, Test & Treat 08/29/2021 08/29/2022 6 6 Encounter Details Date Type Department Care Team (Latest Contact Info) Description 08/29/2021 Transcribe [place] [address] Bharat Kaiser MD [address] [place] [address] Dysphagia, unspecified type Social History Tobacco Use Types Packs/Day [...] as of this encounter Plan of Treatment Scheduled Referrals Name Type Priority Associated Diagnoses Order Schedule Referral to Gastroenterology Outpatient Referral Routine Dysphagia, unspecified type Ordered: 08/29/2021 documented as of this encounter Visit Diagnoses Diagnosis Dysphagia, unspecified type documented in this encounter Care Teams Prizer Hand Relationship Specialty Start Date End Date Harriet Foley MD [address] [place] [address] PCP - General Family Medicine 08/29/21 documented as of this encounter
--- OUTSIDE RECORDS SUMMARY | 2024-01-17 01:01 | XMS_ITS | Encounter Summary ---
Author Organization [facility] Address [facility] [place] [address] Care Team Providers Care Bezel Cutter Name Role Phone Leeann Meléndez MD Primary Care Provider Encounter Details Date Type Department Care Team (Late st Contact Info) Description 08/01/2015 8:00 PM EST Tech [place] [address] Dhruv Mai MD [facility] DR [place] [address] Dysphagia, unspecified type Social History Tobacco Use Types Packs/Day Years Used Date Smoking Tobacco: Former Sex and Gender Information Value Date Recorded Sex Assigned at Not on file Gender Identity Not on file Sexual Orientation Not on file documented as of this encounter Progress Notes * Dhruv Mai MD - 08/08/2015 1:11 PM EST HIGH-RESOLUTION ESOPHAGEAL MANOMETRY Maria Del Carmen [place] [address] : 1955 STUDY DATE: 08-01-2015 PROVIDER: Dhruv Mai, [place], [place] ([id number]) INDICATION Dysphagia METHODS Stationary esophageal manometry was performed with the ManoScan ESO version 3.0 in a supervised setting after verbal consent and after topical anesthesia to the nares. This system uses 36 individual circumferential solid state sensors spaced 1 cm apart. The outer diameter of the probe is 4.2 mm. Length, resting pressure, pressure inversion point (PIP), and relaxation of the lower esophageal sphincter (LES) was measured. The high pressure zone of the upper esophageal sphincter (UES) was measured. Water swallows were provided after a 0-wd-4-minute accommodation period to assess LES function andfunction of the esophageal body. FINDINGS LES (lower esophageal sphincter) Distal border of LES identified at 44.8 cm. Proximal border of LES identified at 42.4 cm. Hiatal hernia present? Yes, approximately 2 cm Basal pressure respiratory mean pressure 29.2 mmHg (normal = 15-34 mmHg). Residual mean pressure (integrated relaxation pressure - IRP) 12.7 mmHg (normal = <15 mmHg). BODY OF ESOPHAGUS Water Swallows: 10. Failed: 10%. Transmitted (peristaltic): 90%. Panesophageal pressurization: 0% Premature: 0% Rapid: 0% With large breaks: 10%. With small breaks: 0%. DCI (distal contractile integral): 4204 mmHg-cm-s (normal is 450 to 5000 mmHg-cm-s). Contractile front velocity: 2.5 cm/s (normal is <9.0 cm/s). Intrabolus pressure (average maximum): 7.9 mmHg (normal is <17.0 mmHg). Distal latency: 7.1 UES (upper esophageal sphincter) Distal border of UES identified at 20 cm and extended to 17.4 cm. UES basal pressure 54.1 mmHg (normal = 34-104 mmHg). Residual pressure 4.4 mmHg (normal = <12 mmHg). IMPRESSION 1. Normal LES resting pressure. 2. Normal LES relaxation. 3. Normal UES resting pressure. 4. Normal UES relaxation. 5. Normal motility in the body of the esophagus. 6. Evidence of a hiatal hernia on this study. Dhruv Mai, PhD, MD dye jig operator, [employer] Chief, Section of Gastroenterology and Hepatology [facility] [place] [address] [address] V: [phone] F: [phone] CC/EC: PCP documented in this encounter Plan of Treatment Not on file documented as of this encounter Visit Diagnoses Diagnosis Dysphagia, unspecified type documented in this encounter Care Teams Bezel Cutter Relationship Specialty Start Date End Date Leeann Meléndez MD [address] [place] [address] PCP - General 02/09/13 08/28/21 documented as of this encounter
--- OUTSIDE RECORDS SUMMARY | 2024-01-17 01:01 | XMS_ITS | Encounter Summary ---
[place] [address] Care Team Providers Care Systems Operator Name Role Phone Leeann Meléndez MD Primary Care Provider [phone] Encounter Details Date Type Department Care Team (Late st Contact Info) Description 08/29/2016 Telephone [place] [id number] Cass Foreman Social History Tobacco Use Types Packs/Day Years Used Date Smoking Tobacco: Former Sex and Gender Information Value Date Recorded Sex Assigned at Not on file Gender Identity Not on file Sexual Orientation Not on file documented as of this encounter Miscellaneous Notes * Telephone Encounter - Cass Foreman - 08/29/2016 9:17 AM EST Informed patient that I would need to reschedule the patient's upcoming appointment with Dr. Avila. Patient will check with her son and call back to reschedule. documented in this encounter Plan of Treatment Not on file documented as of this encounter Visit Diagnoses Not on filedocumented in this encounter Care Teams Systems Operator Relationship Specialty Start Date End Date Leeann Meléndez MD [address] [place] [address] PCP - General 02/09/13 08/28/21 documented as of this encounter
--- OUTSIDE RECORDS SUMMARY | 2024-01-17 01:01 | XMS_ITS | Encounter Summary ---
Author Organization [facility] Address [facility] [place] [address] Care Team Providers Care Pawn Shop Keeper Name Role Phone Leeann Meléndez MD Primary Care Provider Encounter Details Date Type Department Care Team (Latest Contact Info) Description 11/27/2016 9:37 AM EDT - 11/27/2016 12:11 PM EDT Hospital Encounter XRay at [address] [place] [address] Francisco Avila MD [facility] [place] [address] Glossodynia; Oropharyngeal dysphagia; Odynophagia Discharge Disposition: Home [...] Procedure Name Priority Date/Time Associated Diagnosis Comments XR FLUORO BARIUM SWALLOW (MODIFIED/VIDEO SWALLOW PHARYNX) Routine 11/27/2016 10:35 AM EDT Glossodynia Oropharyngeal dysphagia Odynophagia documented in this encounter Results * XR Fluoro Modified Barium Swallow (11/27/2016 10:35 AM EDT) Anatomical Region Laterality Modality N/A Radio Fluoroscop y Impressions 11/27/2016 12:22 PM EDT Delayed swallow trigger; otherwise grossly normal physiologic swallow. Mild piriform sinus residue to which the patient is sensate and clears with secondary swallow. No evidence of laryngeal penetration or aspiration. Narrative 11/27/2016 12:22 PM EDT EXAMINATION: XR FLUORO MODIFIED BARIUM SWALLOW CLINICAL HISTORY: dysphagia and odynophagia TECHNIQUE: In conjunction with speech therapy, the patient's swallowing mechanism was examined using videofluoroscopy. The patient was given various consistencies of barium by mouth without difficulty. COMPARISON: None FINDINGS: Oral phase is grossly normal. The pharyngeal phase demonstrates delayed swallow trigger, with swallow triggering at the level of the piriform sinus. Otherwise the pharyngeal phase demonstrates normal hyolaryngeal elevation and excursion and normal epiglottic inversion. With cup sip of thin barium, the swallow trigger is more prompt. There is minimal residue of contrast within the piriform sinus to which the patient is sensate and clears with secondary swallow. With soft solids, there is premature spill to the level of the vallecula, but otherwise normal-appearing swallow. No laryngeal penetration or aspiration. Procedure Note Sherri Mishra MD - 11/27/2016 EXAMINATION: XR FLUORO MODIFIED BARIUM SWALLOW CLINICAL HISTORY: dysphagia and odynophagia TECHNIQUE: In conjunction with speech therapy, the patient's swallowing mechanism was examined using videofluoroscopy. The patient was givenvarious consistencies of barium by mouth without difficulty. COMPARISON: None FINDINGS: Oral phase is grossly normal. The pharyngeal phase demonstrates delayedswallow trigger, with swallow triggering at the level of the piriform sinus.Otherwise the pharyngeal phase demonstrates normal hyolaryngeal elevation andexcursion and normal epiglottic inversion. With cup sip of thin barium, theswallow trigger is more prompt. There is minimal residue of contrast within thepiriform sinus to which the patient is sensate and clears with secondary swallow.With soft solids, there is premature spill to the level of the vallecula, but otherwise normal-appearing swallow. No laryngeal penetration oraspiration. IMPRESSION Delayed swallow trigger; otherwise grossly normal physiologic swallow.Mild piriform sinus residue to which the patient is sensate and clears withsecondary swallow. No evidence of laryngeal penetration or aspiration. Francisco Avila MD IMG FLUORO ORDERAB LES documented in this encounter Visit Diagnoses Diagnosis Glossodynia Oropharyngeal dysphagia Dysphagia, oropharyngeal phase Odynophagia Dysphagia, unspecified documented in this encounter Administered Medications Inactive Administered Medications - up to 3 most recent administrations Medication Order MAR Action Action Date Dose Rate Site barium sulfate (VARIBAR PUDDING) oral paste 10 mL 10 mL, Oral, ONCE, 1 dose, On Sat11/27/16 at 1100, Routine Given 11/27/2016 11:00 AM EDT 10 mLs barium sulfate (VARIBAR THIN LIQUID) oral powder 10 mL 10 mL, Oral, ONCE, 1 dose, On Sat11/27/16 at 1100, Routine Given 11/27/2016 11:00 AM EDT 10 mLs documented in this encounter Care Teams Pawn Shop Keeper Relationship Specialty Start Date End Date Leeann Meléndez MD [address] [place] [address] [address] PCP - General 02/09/13 08/28/21 documented as of this encounter
--- OUTSIDE RECORDS SUMMARY | 2024-01-17 01:01 | XMS_ITS | Encounter Summary ---
[place] [address] Care Team Providers Care Sheet Metal Layout Mechanic Name Role Phone Leeann Meléndez MD Primary Care Provider Reason for Visit * Surgical (Routine) - Closed Specialty Diagnoses / Procedures Referred By Darius garcia Referred To Contact Gastroenterology Diagnoses Dysphagia Procedures HREM motility Olivier Cannon MD [facility] [address] [place] [address] [facility] [address] [place] [address] Referral ID Status Reason Start Date Expiration Date V isits Requested Visits Authorized [id number] Closed Test Only 06/27/2015 06/26/2016 1 1 Encounter Details Date Type Department Care Team (Latest Contact Info) Description 08/01/2015 11:00 AM EST Procedure visit [place] [address] Yeimy Heller RN Dysphagia, unspecified type Social History Tobacco Use Types Packs/Day Years Used Date Smoking Tobacco: Former Sex and Gender Information Value Date Recorded Sex Assigned at Not on file Gender Identity Not on file Sexual Orientation Not on file documented as of this encounter Progress Notes * Yeimy Heller RN - 08/01/2015 11:11 AM EST HROEM catheter placed via Left nare without difficulty. Patient tolerated procedure well. documented in this encounter Plan of Treatment Not on file documented as of this encounter Visit Diagnoses Diagnosis Dysphagia, unspecified type documented in this encounter Care Teams Sheet Metal Layout Mechanic Relationship Specialty Start Date End Date Leeann Meléndez MD [address] [place], [place] [address]Y [facility] [address] [place] [address] PCP - General 02/09/13 08/28/21 documented as of this encounter
--- OUTSIDE RECORDS SUMMARY | 2024-01-17 01:01 | XMS_ITS | Encounter Summary ---
Author Organization [facility] Address [facility] [place] [address] Care Team Providers Care Hardwood Floor Installation Helper Name Role Phone Harriet Foley MD Primary Care Provider Reason for Referral [...] Resolution Esophageal Manometry HREM - dysphagia [place] [address] [facility] [address] [place] [address] Referral ID Status Reason Start Date Expiration Date V isits Requested Visits Authorized [id number] Closed Test Only 10/26/2021 10/26/2022 1 1 Reason for Visit * Consultation (Routine) - Closed Specialty Diagnoses / Procedures Referred By Darius garcia Referred To Contact Gastroenterology Diagnoses Dysphagia, unspecified type dysphagia Bharat Kaiser MD [facility] [address] [place] [address] [facility] [address] [place] [address] Referral ID Status Reason Start Date Expiration Date V isits Requested Visits Authorized [id number] Closed Consult, Test & Treat 08/29/2021 08/29/2022 6 6 Encounter Details Date Type Department Care Team (Late st Contact Info) Description 10/26/2021 4:00 PM EDT Office [place] [address] Keron Wilkerson, PRAVEEN [facility] [place] [address] Dysphagia, unspecified type; Regurgitation of food; Weight [...] Sign Reading Time Taken Comments Blood Pressure 137/56 10/26/2021 3:58 PM EDT Pulse 88 10/26/2021 3:58 PM EDT Temperature - - Respiratory Rate - - Oxygen Saturation - - Inhaled Oxygen Concentration - - Weight - - Height - - Body Mass Index - - documented in this encounter Patient Instructions * Patient Instructions* Keron Wilkerson, PRAVEEN - 10/26/2021 4:31 PM EDT Dear Maria Del Carmen, It was nice to meet you today. I have listed the recommendations we discussed below. -Upper Endoscopy and colonoscopy -Esophageal manometry RTC in 1 months with motility JOSESITO when testing is complete to further consolidate the GI care plan for the patient's local team. Due to the consultative nature of our practice, the patient should continue to work with Dr. Foley as the primary point of contact for urgent issues, medication refills and adjustments as needed for continuity of care purposes in between visits to our center based onthe recommendations above. TROUBLE SWALLOWING TIPS -Avoid foods that are [...] with milk) -Remain upright 20-30min after eating documented in this encounter Progress Notes * Keron Wilkerson APRN - 10/26/2021 4:00 PM EDT Chief Complaint: Maria Del Carmen Rodriguez is a 66 y.o. patient referred for consultation by Dr. Kaiser for trouble swallowing. History of Present Illness: 66 y.o. female with past medical history significant for pancytopenia, seizures (well controlled on seizure medication per patient), sleep apnea. Dysphagia to solids began 2-3 years ago. Occurs with every meal. Has to be very careful. Also has dysphagia to liquids. Worsening in frequency. [place] at upper throat, drinks to resolve. Very painful. Has odynophagia constantly. Sometimes it wakes her from sleep. Denies heartburn. Regurgitation of solids occurs frequently with eating. Regurgitates phlegm when not eating. Has lost at least 2-3 sizes. Denies nausea, vomiting, abdominal pain, dyspepsia. Constipation began a few years ago. [place] type 1. Every few days. Endorses significant straining.Denies bloody stool and melena. Denies fecal incontinence. Mother had esophageal cancer Patient does not know medications Lifestyle NSAID use: Denies Review of systems: 14-system ROS reviewed and negative except as above Medications: Outpatient Medications Prior to Visit Medication Sig Dispense Refill ??? divalproex (DEPAKOTE) 500 mg EC tablet Take by mouth daily. ??? diphenhydrAMINE/aluminum-magnesium hydroxide with [...] by mouth twice a day 0 ??? ibuprofen (ADVIL;MOTRIN) 600 mg tablet 600MG [...] past surgical history that includes knee surgery (Bilateral) and Anklesurgery (Right). Family History: family history includes Esophageal Cancer [...] and does not use drugs. Physical Exam: VITAL SIGNS: BP 137/56 Pulse 88 BMI: There is no height or weight on file to calculate BMI. Gen: nad, normal body habitus Eyes: no scleral icterus Skin: warm, dry, no rashes, no induration Neurologic: intact to light touch Psych: appropriate affect, a+ox3 Questionnaire: No flowsheet data found. Laboratory studies, imaging, and procedures (my review of prior records): 10/2016 modified barium swallow Delayed swallow trigger; otherwise grossly normal physiologic swallow. Mild piriform sinus residue to which the patient is sensate and clears with secondary swallow. No evidence of laryngeal penetration or aspiration. Assessment/Plan: Ms. Rodriguez is a 66 y.o. patient with past medical history significant for pancytopenia, seizures (well controlled on seizure medication per patient), sleep apnea. #Dysphagia #Odynophagia #Weight loss #Constipation #Change in bowel habits Dysphagia began approximately 2 to 3 years [...] cancer in her mother (unknown diagnosed age). Constipation began a few years ago. [place] type I every few days. Endorses significant straining. Denies bloody stool, melena, fecal incontinence. [facility] Recommend urgent upper endoscopy to assess for structural cause of dysphagia, such as malignancy. Will also place order for esophageal manometry so that this can be scheduled but this plan may changedepending on findings of EGD. Ordering upper endoscopy with anesthesia due to patient's history of seizures. Will also place order for colonoscopy since [...] bring list of medications to next appointment. Recommendations: Diagnostics: -EGD/Colonoscopy (urgent) -Esophageal manometry Therapeutics: -Dysphagia handout RTC in 1 month [...] our center based on the recommendations above. TIME SPENT WITH PATIENT Time spent reviewing records prior to this encounter on day of appointment: 1 minute Time spent during encounter with patient including counselin minutes Time spent documenting encounter after office visit: 11 minutes Keron Wilkerson APRN [facility] [place] [address] documented in this encounter Plan of Treatment Scheduled Orders Name Type Priority Associated Diagnoses Orde r Schedule ENDOSCOPY CASE REQUEST: EGD, UPPER GI ENDOSCOPY, COLONOSCOPY, DIAGNOSTIC Procedures Routine Dysphagia, unspecified type Regurgitation of food Weight loss Odynophagia Ordered: 10/26/2021 High Resolution Esophageal Manometry GI Routine Dysphagia, unspecified type Regurgitation of food Weight loss Odynophagia Change in bowel habits Constipation, unspecified constipation type Family history of esophageal cancer Expected: 10/26/2021 (Approximate), Expires: 10/26/2022 documented as of this encounter Visit Diagnoses Diagnosis Dysphagia, unspecified type Regurgitation of food Weight loss Loss of weight Odynophagia Dysphagia, unspecified Change in bowel habits Other symptoms involving digestive system Constipation, unspecified constipation type Family history of esophageal cancer Family history of malignant neoplasm of gastrointestinal tract documented in this encounter Care Teams Hardwood Floor Installation Helper Relationship Specialty Start Date End Date Harriet Foley MD [address] [place] [address] PCP - General Family Medicine 08/29/21 documented as of this encounter
--- OUTSIDE RECORDS SUMMARY | 2024-01-17 01:01 | XMS_ITS | Encounter Summary ---
[place] [address] Care Team Providers Care Plastic Installer Name Role Phone Leeann Meléndez MD Primary Care Provider Encounter Details Date Type Department Care Team (Late st Contact Info) Description 09/27/2016 Telephone [place] [address] Cass Foreman Social History Tobacco Use Types [...] * Telephone Encounter - Cass Foreman - 09/27/2016 2:21 PM EDT Left message for patient with appointment information for MBS and MRI on 10/29/16 and f/u with MICHELL on 11/01/16 documented in this encounter Plan of Treatment Not on file documented as of this encounter Visit Diagnoses Not on filedocumented in this encounter Care Teams Plastic Installer Relationship Specialty Start Date End Date Leeann Meléndez MD [address] [place] [address] [place] [address] PCP - General 02/09/13 08/28/21 documented as of this encounter
--- OUTSIDE RECORDS SUMMARY | 2024-01-17 01:01 | XMS_ITS | Encounter Summary ---
Author Organization [facility] [place] [address] Care Team Providers Care Plastics Spreading Machine Operator Name Role Phone Leeann Meléndez MD Primary Care Provider [phone] Reason for Visit * Speech Therapy (Routine) - Closed Specialty Diagnoses / Procedures Referred By Darius t Referred To Contact Speech Pathology / Speech Therapy Diagnoses Glossodynia Oropharyngeal dysphagia Odynophagia Francisco Avila MD [facility] [place] [address] [facility] [place] [address] Referral ID Status Reason Start Date Expiration Date V isits Requested Visits Authorized [id number] Closed Evaluate and Treat 09/20/2016 09/20/2017 1 1 Encounter Details Date Type Department Care Team (Late st Contact Info) Description 11/27/2016 10:00 AM EDT Office Visit [place] [address] Joselyn Hurst, PANEL ASSEMBLER [facility] PHYSICAL MEDICINE & [place] [address] Oropharyngeal dysphagia Social History Tobacco Use Types Packs/Day Years [...] as of this encounter Progress Notes * Joselyn Hurst, PANEL ASSEMBLER - 11/27/2016 10:00 AM EDT Speech-Language Pathology Modified Barium Swallow Evaluation Patient Name: Maria Del Carmen Rodriguez Date of : 1955 Referring MD: Dr. Avila Date Seen by MD: 09/20/16 Diagnosis: Dysphagia Date of Onset: Approximately 2 years ago Date of Evaluation: 11/27/16 Total Treatment Time: 60 minutes Certification Period: Evaluation only Total Timed Code Treatment: 0 minutes S: Pt. denies pain at this time. Pt alert and cooperative with study. Pt was standing for the durationof the session. O: Order received and completed with this 61 y[address] Dr. Avila for a modified barium swallow study given sudden onset of throat pain approximately 2 years ago. Per patient report, discomfort is persistent. It does not appear to worsen significantly with PO intake; however, it has impactedher PO intake. She has lost approximately 100 lbs over the last 2 years unintentionally 2/2 discomfort. She has difficulty with mastication of solids 2/2 lack of dentition. She reports no significantdifference between tolerance of solid consistencies or liquid consistencies. She reports xerostomia. Medical History: Past Medical History: Diagnosis Date ??? Sleep apnea Allergies: Allergies Allergen Reactions ??? Amoxicillin Trihydrate Current Diet: Regular solids, thin liquids Cognitive-Linguistic Status: alert, Ox3, able to follow simple directions and respond to basic questions Respiratory Status: pt on room air Feeding / Oral Care Status: pt independent Seating and Positioning: pt able to sit up with head midline without assistance Oral Peripheral WFL: labial, buccal, lingual, jaw ROM, strength, agility, and sensation are adequate for PO intake Velar elevation and retraction adequate Adequate laryngeal elevation, retraction to palpation Volitional swallow, throat clear, cough prompt and strong Speech and voice judged to be WNL Difficulties Observed: ?? Edentulous Bolus Presentation(s) (all consistencies are mixed with Barium) ?? thin liquid via spoon, via cup, via straw ?? thick puree via spoon ?? mechanical soft via spoon ?? pill Oral Preparatory Phase Adequate lip closure, no anterior loss from oral cavity; adequate bolus cohesion and A-P propulsion; prompt swallow initiation, no oral residue noted. Difficulties Revealed: ?? Mild oral residue with puree solids; able to clear required increased time ?? Prolonged mastication with less restrictive solids which appears 2/2 lack of dentition versus mandibular strength ?? Mild delay in A/P propulsion with less restrictive solids Pharyngeal Phase Appears to be WFL, no aspiration or penetration noted during evaluation. Distinct, and coordinated swallow without breath or vocal quality changes. Difficulties Revealed: (Lateral View) ?? Premature spillage into valleculae with pooling into the piriform sinus with thin liquids ?? Swallow triggered at piriform sinuses with all trials of thin liquids ?? Swallow triggered at the level of the vallecula with solid consistencies Esophageal Phase WFL, no reflux noted, normal relaxation of upper esophageal sphincter Modifications Attempted: ?? No modifications attempted at this time as they were not indicated. A: Dx: Minimal Oropharyngeal Dysphagia due to lack of dentition, decreased tongue base retraction and delayed palatal reflex trigger which result in min prolonged mastication, mild oral residue and delay inswallow initiation with thin liquids. Pt appears to compensate for all minor deficits. No aspiration, penetration, or pharyngeal residue noted with any trials completed today. Would recommend continuing with dysphagia soft solids and thin liquids at this time with implementation of strategies as outlined below. Pt reported increased discomfort with attempts at oral motor exercises for possible improved tongue base retraction. As a result, no direct skilled PANEL ASSEMBLER intervention appears indicated at this time. ?? Aspiration / Penetration Scale Score (RosenRadha sesay et al. Dysphagia, 111995) ??? 1 = no material enters the airway ??? 2 = material enters the airway, does not touch the vocal cords, and is completely ejected ??? 3 = material enters the airway, does not touch the vocal cords, but is not ejected ??? 4 = material enters the airway, contacts the vocal cords, but is ejected ??? 5 = material enters the airway, contacts the vocal cords, but is not ejected ??? 6 = material enters the airway, passes below the vocal cords, and is ejected ??? 7 = material passes below the vocal cords, is not ejected, but there is effort made to expel material ??? 8 = material passes below the vocal cords, and there is no attempt to eject it Recommendations: ?? Diet: Dysphagia soft solids and thin liquids ?? Standard aspiration precautions ?? Upright for all PO intake and 30-45 minutes following ?? Small bites and sips ?? Alternate bites and sips P: ?? No Speech Pathology intervention recommended at this time ?? Pt./family are in agreement with plan of treatment. Thank you for this consult with this patient. Please feel free to page me with any questions or concerns. Andrew Mcdonald, CCC-PANEL ASSEMBLER Speech-Language Pathologist Rehabilitation Medicine Pager # [phone] documented in this encounter Plan of Treatment Scheduled Referrals Name Type Priority Associated Diagnoses Orde r Schedule Referral to Speech Therapy Outpatient Referral Routine Glossodynia Oropharyngeal dysphagia Odynophagia Ordered: 09/20/2016 documented as of this encounter Visit Diagnoses Diagnosis Oropharyngeal dysphagia Dysphagia, oropharyngeal phase documented in this encounter Care Teams Plastics Spreading Machine Operator Relationship Specialty Start Date End Date Leeann Meléndez MD [address] [facility] [address] [place] [address] PCP - General 02/09/13 08/28/21 documented as of this encounter
--- OUTSIDE RECORDS SUMMARY | 2024-01-17 01:01 | XMS_ITS | Encounter Summary ---
Author Organization [facility] Address [facility] [place] [address] Care Team Providers Care Anaesthetic Technician Name Role Phone Leeann Meléndez MD Primary Care Provider [phone] Reason for Visit * Reason Comments Follow-up glossodynia/thorat i s still bothering her/sore and hard to swallow/ice cream seems to be the only food to go down with only a little pain Encounter Details Date Type Department Care Team (Late st Contact Info) Description 01/24/2017 11:20 AM EDT Office [place] [address] Francisco Lucas MD [facility] [place] [address] Glossodynia; Oropharyngeal dysphagia Social History Tobacco Use Types [...] Sign Reading Time Taken Comments Blood Pressure 152/99 01/24/2017 11:11 AM EDT Pulse 72 01/24/2017 11:11 AM EDT Temperature - - Respiratory Rate 20 01/24/2017 11:1 1 AM EDT Oxygen Saturation 100% 01/24/2017 11: 11 AM EDT Inhaled Oxygen Concentration - - Weight 57.1 kg (125 lb 12.8 oz) 017 11:11 AM EDT Height 160 cm (5' 3) 01/24/2017 11:11 AM EDT Body Mass Index 22.28 01/24/2017 11:11 AM EDT documented in this encounter Progress Notes * Francisco Lucas MD - 01/24/2017 11:20 AM EDT [facility] [place] [place] OTOLARYNGOLOGY HEAD AND NECK TUMOR CLINIC FOLLOW UP NOTE Maria Del Carmen Rodriguez is a 62 y.o. female followed for: Odynophagia and tongue pain New issues since last visit: She continues to have pain which she localizes to under the tongue and in the back of the throat. Had MRI scan which was normal. MBS without significant swallowing abnormalities She is on B12 and folate. She reports the only thing she can take is ice cream b/c that sooths the throat. PROBLEM LIST Patient Active Problem List Diagnosis Code ??? Pancytopenia D61.818 ??? Anemia D64.9 ??? Seizures R56.9 ??? S/P right unicompartmental knee replacement Z96.651 ??? 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 Sleep apnea SOCIAL HISTORY Social History Substance Use Topics ??? Smoking status: Former Smoker Packs/day: 3.00 Years: 4.00 Types: Cigarettes ??? Smokeless tobacco: Not on file Comment: Quit in 1973 ??? Alcohol use No MEDICATIONS Current Outpatient Prescriptions on File Prior to Visit Medication Sig Dispense Refill ??? cholecalciferol, Vitamin D3, 2,000 unit Tablet [...] ??? divalproex (DEPAKOTE) 500 mg EC tablet 500mg, PO, Twice daily ??? ibuprofen (ADVIL;MOTRIN) 600 mg tablet 600MG = 1 Tablet(s), PO, Four times daily ??? traZODone (DESYREL) 100 mg tablet 100MG = 1 Tablet(s), PO, QHS No current facility-administered medications on file prior to visit. ALLERGIES Allergies Allergen Reactions ??? Amoxicillin Trihydrate ROS Pertinent positive findings discussed above. No other findings on review of constitutional visual, cardiovascular, respiratory, gastrointestinal, genitourinary, musculoskeletal, dermatologic, neurological, psychiatric, endocrine, hematologic or immunologic systems. PHYSICAL EXAMINATION Wt Readings from Last 3 Encounters: 01/24/17 57.1 kg (125 lb 12.8 oz) 09/20/16 55.3 kg (122 lb) 04/03/13 70.5 kg (155 lb 6.8 oz) General: Well developed, no distress Head/face: Normocephalic, atraumatic Oral cavity: Normal exam of the lips, edentulous, floor of mouth, tongue. Normal oral mucosa. Normal palate. Tongue slightly tender to palpation, no lesions. FOM is soft. Oropharynx: Normal soft palate, tonsils, lateral pharyngeal wall, posterior pharynx. Neck: No adenopathy, no masses, normal thyroid, normal salivary gland exam. Trachea midline. Resp: Normal speech, no stridor, normal respirations. Skin: Normal skin survey of the head and neck. MSK: No trismus, normal neck range of motion Neuro: AxOx3; CN II-XII is grossly intact Psych: Normal mood and affect. Responds appropriately to questions. PROCEDURES Procedure Flexible Fiberoptic Laryngoscopy Indication Throat pain Description Informed verbal consent obtained and time out performed. A flexible laryngoscope was used to evaluate bilateral nasal cavity, nasopharynx, oropharynx, hypopharynx and larynx. The examination was recorded on the [employer] Unit and uploaded to the [employer]. Findings Nasal cavity normal Nasopharynx normal Oropharynx Tongue base is normal with mucosal pathology, remainder of OP is normal Larynx normal Hypopharynx normal REVIEW OF IMAGES MRI reviewed, no findings. ASSESSMENT/RECOMMENDATIONS Tongue pain of unclear etiology. Extensive workup has been negative. This may be neuropathic pain and she may benefit from a trial of Lyrica or Neurontin. I will defer to Dr. Meléndez regarding which med to prescribe and potential interactions with her other medications. Will also try BMX solution to see if this might relieve some of the discomfort. RTC PRN. I appreciate the opportunity to be involved in Ms. Rodriguez's care. FRANCISCO LUCAS MD 01/24/2017 documented in this encounter Plan of Treatment Not on file documented as of this encounter Visit Diagnoses Diagnosis Glossodynia Oropharyngeal dysphagia Dysphagia, oropharyngeal phase documented in this encounter Care Teams Anaesthetic Technician Relationship Specialty Start Date End Date Leeann Meléndez MD [address] [place] [address] PCP - General 02/09/13 08/28/21 documented as of this encounter
--- OUTSIDE RECORDS SUMMARY | 2024-01-17 01:01 | XMS_ITS | Encounter Summary ---
Author Organization [facility] [place] [address] Care Team Providers Care Rubber Extrusion Machine Operator Name Role Phone Leeann Meléndez MD Primary Care Provider [phone] Encounter Details Date Type Department Care Team (Late st Contact Info) Description 10/29/2016 Telephone [place] [address] Cass Foreman Social History Tobacco Use Types [...] * Telephone Encounter - Cass Foreman - 10/29/2016 10:17 AM EDT Left message with patient's for patient to call back. Patient's upcoming appointment with Dr. Avila needs to be moved to after her MBS and MRI. documented in this encounter Plan of Treatment Not on file documented as of this encounter Visit Diagnoses Not on filedocumented in this encounter Care Teams Rubber Extrusion Machine Operator Relationship Specialty Start Date End Date Leeann Meléndez MD [address] [place] [address] PCP - General 02/09/13 08/28/21 documented as of this encounter
--- OUTSIDE RECORDS SUMMARY | 2024-01-17 01:01 | XMS_ITS | Encounter Summary ---
Author Organization [facility] [place] [address] Care Team Providers Care Car Mechanic Helper Name Role Phone Leeann Meléndez MD Primary Care Provider Reason for Referral * Diagnostic Test (Routine) - Closed Specialty Diagnoses / Procedures Referred By Darius garcia Referred To Contact Radiology Diagnoses Glossodynia Oropharyngeal dysphagia Odynophagia Procedures MRI Neck wwo Contrast MRI Soft Tissue Neck w Contrast (Generic) Francisco Avila MD [facility] [place] [address] [facility] [place] [address] Referral ID Status Reason Start Date Expiration Date V isits Requested Visits Authorized [id number] Closed Specialty Service Requested 11/22/2016 02/20/2017 1 1 * Speech Therapy (Routine) - Closed Specialty Diagnoses / Procedures Referred By Darius garcia Referred To Contact Speech Pathology / Speech Therapy Diagnoses Glossodynia Oropharyngeal dysphagia Odynophagia Francisco Avila MD [facility] [place] [address] [facility] [place] [address] Referral ID Status Reason Start Date Expiration Date V isits Requested Visits Authorized [id number] Closed Evaluate and Treat 09/20/2016 09/20/2017 1 1 Reason for Visit * Reason Comments Dysphagia Haven't a difficult time swallowing, eating and drinking because it's painful * Consultation (Routine) - Specialty Diagnoses / Procedures Referred By Contac t Referred To Contact Otolaryngology Diagnoses odynophagia Kurt Randolph MD [address] [place] [address] [place] [address] Francisco Avila MD [facility] [place] [address] Referral ID Status Reason Start Date Expiration Date V isits Requested Visits Authorized [id number] 07/19/2016 07/19/2017 1 1 Encounter Details Date Type Department Care Team (Late st Contact Info) Description 09/20/2016 11:00 AM EDT Office [place] [phone] Francisco Avila MD [facility] [place] [address] Glossodynia; Oropharyngeal dysphagia; Odynophagia Social History Tobacco Use Types Packs/Day Years [...] Sign Reading Time Taken Comments Blood Pressure 129/77 09/20/2016 11:03 AM EDT Pulse 81 09/20/2016 11:03 AM EDT Temperature - - Respiratory Rate - - Oxygen Saturation - - Inhaled Oxygen Concentration - - Weight 55.3 kg (122 lb) 09/20/2016 11:03 AM EDT Height 162.6 cm (5' 4) 09/20/2016 11:03 AM EDT Body Mass Index 20.94 09/20/2016 11:03 AM EDT documented in this encounter Progress Notes * Francisco Avila MD - 09/20/2016 11:00 AM EDT [facility] Otolaryngology - Head and Neck Surgery Dom Melvin PA-C 09/20/16 12:23 PM [place], [place] [address] Office Patient Name: Maria Del Carmen Rodriguez Date of : 1955 PCP: Leeann Meléndez MD Chief Complaint: dysphagia, odynophagia, globus sensation, tongue pain, xerostomia, sour taste in mouth History of Present Illness: Maria Del Carmen Rodriguez is a 61 y.o. year old female with a history of ITP, chronic pain syndrome, depression, iron deficiency anemia, MARCIO, hypercholesterolemia, esophageal reflex who was seen today at the request of Kurt Randolph in consultation for the above chief complaints. Per Ms. Rodriguez, she first exper ienced an acute onset of sore throat followed by dysphagia to both solid and soft foods/liquids about 2 years ago. She relates a weight loss of about 100lbs in 2 years. She eats mainly soft foods andis often unable to finish a meal secondary to dysphagia. When asked to locate the area of pain she indicates the entire length of her neck. Regarding her tongue pain, she indicates an area of tenderness on the ventral surface of the anterior 1/3. There is no reported lesion, swelling, or bleeding. She is on multiple psych and anti seizure medications which predate her symptoms. She has also takenPPI chronically, predating current problems. She does relate that occasionally she experiences a sour taste brought on by mucous that she believes is from her stomach and not associated with cough ordyspnea. She has had an extensive workup so far including consultation with gastroenterology and RITESH Agustin. She did undergo EGD in 2014 with biopsies of the esophageal and gastric mucosa; all of which were unremarkable. An esophageal manometry was revealing only for evidence of hiatal hernia.A CT scan neck w/ contrast from 11/2015 was unremarkable. A CBC/diff and CMP from 08/2015 is available and [address]able. Dr. Randolph's notes indicate a normal examination including fiberoptic nasolaryngoscopy. 10 point Review of Systems was normal except for pertinent positives and negatives included in the History of Present Illness. Past Medical and Surgical History Patient Active Problem List Diagnosis Code ??? Pancytopenia D61.818 ??? Anemia D64.9 ??? Seizures R56.9 ??? S/P right unicompartmental knee replacement Z96.651 ??? 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 divalproex (DEPAKOTE) 500 mg EC tablet 500mg, PO, Twice daily ??? ibuprofen (ADVIL;MOTRIN) 600 mg tablet 600MG = 1 Tablet(s), PO, Four times daily ??? traZODone (DESYREL) 100 mg tablet 100MG = 1 Tablet(s), PO, QHS ??? hydroCODone-acetaminophen (LORCET-HD) 5-500 mg per capsule 1 Capsule(s), PO, Four times daily No current facility-administered medications on file prior to visit. Allergies: Amoxicillin trihydrate Surgical History: History reviewed. No pertinent surgical history. Family and Social History Family History: No family history on file. Social History: Lives in [facility] [address] Social History Social History ??? Marital status: Spouse name: N/A ??? Number of children: N/A ??? Years of education: N/A Occupational History ??? Not on file. Social History Main Topics ??? Smoking status: Former Smoker Packs/day: 3.00 Years: 4.00 Types: Cigarettes ??? Smokeless tobacco: Not on file Comment: Quit in 1973 ??? Alcohol use No ??? Drug use: No ??? Sexual activity: Not on file Other Topics Concern ??? Not on file Social History Narrative Physical Exam Temperature: Heart Rate: 81 Blood Pressure: 129/77 Respiratory Rate: SpO2: Physical Examination: Vitals: Blood pressure 129/77, pulse 81, height 162.6 cm (5' 4), weight 55.3 kg (122 lb). General: Breathing comfortably without stridor. No acute distress. Appears frail; speech is slow and lethargic. Face: Full and symmetric facial movement. No dysmorphic facial features. Eyes: Periocular structures and conjunctiva healthy without lesions. Pupils are equal, round, and reactive to light. Extraocular movement is full and intact. No evidence of nystagmus. Ears: Auricles symmetric without lesions. Right ear: external auditory canal clear; tympanic membrane normal. Left ear: external auditory canal clear; tympanic membrane normal. Nose: Patent anteriorly with adequate airflow, healthy pink mucosa. Septum is midline without significant deviation. Inferior turbinates normal Mouth: Lips and gingiva pink, moist, without lesions. Edentulous; gingiva pink. Tongue with some tenderness on ventral surface to the right ant. 1/3 without induration or visible abnormality. FOM with some tenderness to palpation on the right without mass or visible lesion. Hard palate without lesions. Pharynx: Soft palate without lesions. Uvula is midline. Oropharynx symmetric. Neck: Soft, supple, without significant lymphadenopathy. Thyroid gland without masses or asymmetry.Trachea midline without deviation. Lungs: Clear to auscultation bilaterally without wheezes. Heart: Regular rate and rhythm without murmur. Neurologic: Cranial nerves II-XII intact and symmetric. Labs and Imaging Procedures Procedure Note: Flexible Fiberoptic Laryngoscopy: Topical anesthetic and decongestant applied to the nasal cavity. Patient tolerated the procedure well without any complications. Findings: Nasal cavity : anterior examination reveals septum midline, turbinates non- edematous,no evidence ofneoplastic process such as polyps, no mucopurulent drainage. Nasopharynx: clear without masses or lesions. Eustachian tube openings normal. Oropharynx: normal without masses or lesions. Larynx: base of tongue normal, valleculae is clear, epiglottis normal shape and contour without erythema or edema, vocal cords normal without evidence of irritation, discrete lesion or paralysis. Post-cricoid region normal. Piriform sinuses are clear. Hypopharynx:unremarkable. Dom Melvin PA-C [place], [place] [address] Office 09/20/2016 12:23 PM [facility] Otolaryngology Attending Note This is a shared visit with Xavier Melvin PA-C History This patient presents with complaints of tongue pain, mainly localized to the right ventral tongue and dysphagia with all consistencies. She is a poor historian so her history is somewhat difficult to obtain. She has had an extensive work up including CT neck, EGD, manometry without a definitive ramiro gnosis. Pertinent Exam Findings/Procedure Performed/Imaging Reviewed She is tender along the right tongue and floor of mouth. No palpable lesion is appreciated. FFNPL demonstrates no significant pathologic findings. CT neck reviewed which is normal as well. Assessment/Recommendations 1 - tongue pain 2 - dysphagia with weight loss Etiology of tongue pain is unclear but her pain is localized to the right tongue. It is possible there may be a submucosal lesion which we are not able to identify on exam or appreciate on CT. An MRIof the neck may be helpful to rule out a submucosal tongue lesion. Dysphagia may be related to GERD although she is on medication currently. Will arrange an MBS to better understand the specifics of her dysphagia and possible develop swallowing strategies. Follow up after both studies. documented in this encounter Plan of Treatment Scheduled Referrals Name Type Priority Associated Diagnoses Orde r Schedule Referral to Speech Therapy Outpatient Referral Routine Glossodynia Oropharyngeal dysphagia Odynophagia Ordered: 09/20/2016 documented as of this encounter Results * MRI Neck wwo [...] the residents interpretationand agree with the findings, Hugh Yates at 11/27/2016 2:47 PM Authorizing Provider Result Levi Avila MD IMG MRI ORDERABLES * XR Fluoro Modified Barium Swallow (11/27/2016 [...] dysphagia Dysphagia, oropharyngeal phase Odynophagia Dysphagia, unspecified Glossodynia Oropharyngeal dysphagia Dysphagia, oropharyngeal phase Odynophagia Dysphagia, unspecified Glossodynia Oropharyngeal dysphagia Dysphagia, oropharyngeal phase Odynophagia Dysphagia, unspecified documented in this encounter Care Teams Car Mechanic Helper Relationship Specialty Start Date End Date Leeann Meléndez MD [address] [place] [address] PCP - General 02/09/13 08/28/21 documented as of this encounter
--- OUTSIDE RECORDS SUMMARY | 2024-01-17 01:01 | XMS_ITS | Encounter Summary ---
Author Organization [facility] Address [facility] [place] [address] Care Team Providers Care Senior Sas Developer Name Role Phone Leeann Meléndez MD Primary Care Provider Encounter Details Date Type Department Care Team (Latest Contact Info) Description 12/06/2015 - 12/06/2015 11:59 PM EDT Hospital Encounter [place] [phone] Francisco Avila MD [facility] [place] [address] Pain Discharge Disposition: Home Social History Tobacco Use Types Packs/Day Years Used Date Smoking Tobacco: Former Sex and Gender Information Value Date Recorded Sex Assigned at Not on file Gender Identity Not on file Sexual Orientation Not on file documented as of this encounter Medications at Time of Discharge Medication Sig Dispensed Refills Start Date End Date divalproex (DEPAKOTE) 500 mg EC tablet Take [...] Procedure Name Priority Date/Time Associated Diagnosis Comments FILM LIBRARY STORAGE ONLY CT SPINE Routine 12/06/2015 12:00 AM EDT Pain documented in this encounter Results * Film Library- Storage Only CT Spine (12/06/2015 12:00 AM EDT) Narrative [facility] - 07/24/2016 1:24 PM EST This exam is for storage only and is auto-finalizing. Francisco Avila MD IMG FILM LIBRARY O RDERABLES Performing Organization Address City/State/[facility] Co de Phone Number [place], [place] documented in this encounter Visit Diagnoses Diagnosis Pain Generalized pain documented in this encounter Care Teams Senior Sas Developer Relationship Specialty Start Date End Date Leeann Meléndez MD [address] [place] [address] [address] [facility] [address] [place] [address] PCP - General 02/09/13 08/28/21 documented as of this encounter
--- OUTSIDE RECORDS SUMMARY | 2024-01-17 01:01 | XMS_ITS | Encounter Summary ---
Author Organization [facility] Address [facility] [place] [address] Care Team Providers Care Rail Maintenance Worker Name Role Phone Karri Meléndez MD Primary Care Provider [phone] Reason for Visit * Reason Comments Advice Only Encounter Details Date Type Department Care Team (Late st Contact Info) Description 04/03/2013 11:30 AM EDT Office Visit [place] [id number] Mateus Shah MD [facility] HEMATOLOGY/[place] [address] Pancytopenia (Primary Dx); Anemia Discharge Disposition: Home Social History Tobacco Use Types Packs/Day Years Used Date Smoking Tobacco: Former Sex and Gender Information Value Date Recorded Sex Assigned at Not on file Gender Identity Not on file Sexual Orientation Not on file documented as of this encounter Last Filed Vital Signs Vital Sign Reading Time Taken Comments Blood Pressure 117/70 04/03/2013 10:35 AM EDT Pulse 77 04/03/2013 10:35 AM EDT Temperature 36.4 ??C (97.5 ??F) 04/03/2013 10:35 AM E DT Respiratory Rate 18 04/03/2013 10:35 AM EDT Oxygen Saturation 100% 04/03/2013 10:35 AM EDT Inhaled Oxygen Concentration - - Weight 70.5 kg (155 lb 6.8 oz) 04/03/2013 10:35 AM EDT Height 161 cm (5' 3.39) 04/03/2013 10:35 AM EDT Body Mass Index 27.2 04/03/2013 10:35 AM EDT documented in this encounter Progress Notes * Mateus Shah MD - 04/03/2013 7:17 AM EDT HEMATOLOGY/BMT CONSULTATION VISIT NOTE CHIEF COMPLAINT: Maria Del Carmen Rodriguez is a 58 y.o. year old female referred by KARRI MELÉNDEZ MD for evaluation of leukopenia and thrombocytopenia. DATA REVIEW (From KARRI MELÉNDEZ MD) 10/22/11 CBC - 4.7/11.4/162 03/31/12 CBC - 4.1/12.4/125 Alb 3.3 nl LFTs 08/01/12 CBC - 3.0/13.0/58 ANC 1,440; ALC 1,760 B12 - 976 08/11/12 CBC - 4.6/11.9/163 11/26/12 CBC - 2.9/13.2/122 No WBC differential Meds from 01/28/13 clinic note Omeprazole Benadryl FeSO4 Prevastatin Valproic acid B12 KCl HISTORY OF PRESENT ILLNESS Maria Del Carmen Rodriguez dates the onset of illness to when she was recently told she had low blood counts. She says she does have a h/o borderline anemia and low iron. She says that she has been cold intolerant for many years. Doesn't remember any illness or new meds associated with her low plt count last August. 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 F/C/S - no Weight loss - no How long on ... Prevastatin - ~1 year Valproate - ~10 years Omeprazole - many years Trazadone (not sure of this) REVIEW OF SYSTEMS Constitutional --Energy level: good --Pain: chronic knee pain - knee replacement surgery is planned --Fevers/chills/sweats: No --Unexpected weight loss or gain: No Eyes - No change in vision Ears, nose, throat - No change hearing, no oral or throat pain or thrush Cardiovascular --SOB: No --SHAVER: No --chest pain: No Respiratory --Cough: No --SOB, SHAVER: as above Gastrointestinal --Appetite: good --Nausea/vomiting/diarrhea/constipation: No Genitourinary --Dysuria or hematuria: No Musculoskeletal --Muscle pain or weakness: No --Joint pain or swelling: No Immune System --Recent infections: No Hematology/Lymph --Bruising/bleeding/melena: No --Enlarged nodes or other masses: No Skin --Rashes or petechiae: No Other ROS: All negative PROBLEM LIST There are no active problems to display for this patient. MEDICATION As above ALLERGIES/ADR Allergies Allergen Reactions ??? Amoxicillin Trihydrate SOCIAL HISTORY History Substance Use Topics ??? Smoking status: Not on file ??? Smokeless tobacco: Not on file ??? Alcohol Use: Not on file Tobacco - quite at 20 years of age when she was . smoked until 3 years ago. ETOH - none (due to valproate) FAMILY HISTORY FH blood diseases - none Father - - medical history not known Mother - of dementia and old age Siblings - 2 sisters and 1 brother - whereabouts and medical hx not known. PHYSICAL EXAM VITAL SIGNS: Blood pressure 117/70, pulse 77, temperature 36.4 ??C (97.5 ??F), temperature source Oral, resp. rate 18, height 161 cm (5' 3.39), weight 70.5 kg (155 lb 6.8 oz), SpO2 100.00%. GENERAL: Maria Del Carmen Rodriguez is a well-appearing 58 y.o. year old female in no acute distress. ENT: Sinuses non-tender. Oropharynx clear. No masses. No thrush. ENDOCRINE: No thyromegaly palpated. CARDIOVASCULAR: Heart with regular rate and rhythm without S3,S4 or murmurs. No cyanosis or peripheral edema. PULMONARY: Lungs are clear to auscultation without rales, rhonchi or wheezing. GASTROINTESTINAL: Abdomen soft and non-tender without palpable masses or hepatosplenomegaly. MUSCULOSKELETAL: Neck supple with full ROM. No spine or CVA tenderness. SKIN: No rashes, bruises or petechiae. LYMPH: No abnormal lymphadenopathy. NEUROLOGICAL: Alert and oriented to person, place and time. LABORATORY Recent Results (from the past 72 hour(s)) FOLATE, SERUM Component Value Range Folate Lvl 10.3 4.6 - 34.8 ng/mL SEDIMENTATION RATE Component Value Range Sed Rate 16 0 - 20 mm/hr PROTEIN ELECTROPHORESIS, SERUM Component Value Range Total Prot Elec 6.5 6.4 - 8.3 gm/dL IMMUNOGLOBULINS, QUANTITATIVE Component Value Range IgG 907 700 - 1600 mg/dL IgA 236 70 - 400 mg/dL IgM 74 40 - 230 mg/dL TSH Component Value Range TSH 2.79 0.27 - 4.20 mcIU/mL CBC (WITH DIFF) Component Value Range WBC 3.9 (*) 4.0 - 10.0 x10(3)/mcL RBC 3.74 (*) 3.93 - 5.22 x10(6)/mcL Hemoglobin 12.0 11.2 - 15.7 gm/dL Hematocrit 35.7 34.0 - 45.0 % MCV 95.5 (*) 79.0 - 94.0 fL MCH 32.1 26.6 - 32.2 pg MCHC 33.6 32.0 - 36.5 gm/dL Platelets 115 (*) 145 - 370 x10(3)/mcL RDWSD 47.6 (*) 35.0 - 46.0 fL RDWCV 13.8 10.9 - 14.4 % MPV 11.0 9.0 - 12.0 fL COMPREHENSIVE METABOLIC PANEL (NON-FASTING) Component Value Range Glucose Lvl 86 60 - 199 mg/dL BUN 19 (*) 8 - 18 mg/dL Creatinine 0.80 0.70 - 1.20 mg/dL Sodium 143 135 - 145 mmol/L Potassium 3.6 3.5 - 5.0 mmol/L Chloride 103 98 - 107 mmol/L CO2 30 22 - 31 mmol/L Anion Gap 10 5 - 15 mmol/L Calcium 9.1 8.5 - 10.5 mg/dL Total Protein 6.8 6.4 - 8.3 gm/dL Albumin 3.9 3.2 - 5.2 gm/dL AST 22 0 - 30 unit/L ALT 15 0 - 30 unit/L Alk Phos 60 40 - 104 unit/L Total Bilirubin 0.2 0.2 - 1.3 mg/dL Bili, Direct 0.1 0.0 - 0.3 mg/dL Estimated GFR >60 >=60 FERRITIN Component Value Range Ferritin 266 30 - 400 ng/mL IRON AND TIBC Component Value Range Iron 87 30 - 150 mcg/dL TIBC 262 250 - 450 mcg/dL Iron Saturation 33 20 - 50 % VITAMIN B12 Component Value Range Vitamin B-12 1258 (*) 207 - 974 pg/mL DIFFERENTIAL, AUTOMATED Component Value Range Neutrophils % 35.1 34.0 - 71.0 % Neutr Abs (ANC) 1.38 (*) 1.50 - 6.30 x10(3)/mcL Lymphocytes % 52.5 19.0 - 53.0 % Lymphocytes Abs 2.1 1.0 - 3.6 x10(3)/mcL Monocytes % 9.1 4.0 - 13.0 % Monocyte Abs 0.4 0.2 - 1.0 x10(3)/mcL Eosinophils % 2.5 0.0 - 7.0 % Eosinophils Abs 0.1 0.0 - 0.5 x10(3)/mcL Basophils % 0.8 0.0 - 2.0 % Basophils Abs 0.0 0.0 - 0.2 x10(3)/mcL Immature Gran % 0.00 0.00 - 0.66 % Yuly Gran Abs 0.00 0.00 - 0.05 x10(3)/mcL SPEP - no M-spike detected RADIOLOGY - None ASSESSMENT & PLANS 1. Pancytopenia - Maria Del Carmen has had intermittent low WBC, Hgb and Plts. Reviewing her labs over the last several months does not show a progressive pattern of worsening counts and in fact, her WBC and Hgb are now normal. Testing shows normal B12, folate and iron stores and no evidence of an underlying lymphoproliferative disorder. 2. 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 No other cause is suggested by our evaluation. At this point no further evaluation or any therapy is recommended. However, should her plts fall below ~40K, if she develops abnormal bleeding or bruising or if she is needing surgery and her counts fall below ~75K we'd be glad to see her any time. 3. Knee surgery planned for 04/27 - from a hematologic standpoint, I see no contraindications to proceeding as planned. The plt count of 115 should be adequate for required hemostasis. 4. Counseling - We reviewed potential causes for her low blood counts and reasons for performing the above tseting. Maria Del Carmen was agreeable to proceeding with these. We also reviewed that BM Bx might be a recommended next step if her counts remained abnormal or other worrisome findings came up. 04/08/13 ADDENDUM Tried to call multiple times with results but no one home and no answering machine. So will send letter. Recommendations 1. The thrombocytopenia is most likely due to a mild ITP. The waxing and waning of her count is notunusual. No therapy indicated at this time. If she develops abnormal bleeding or bruising she should contact Dr. Meléndez or us. 2. No further w/u indicated at this time. 3. OK to proceed with planned surgery froma Heme standpoint. Call with results [phone] Danae Alcala says to please speak with her if she isn't there. TOTAL TIME OF VISIT: minutes TIME SPENT ON COUNSELING AND COORDINATION OF CARE: minutes Mateus Shah M.D. post office markup clerk & Pharmacology Section of Hematology/Oncology [facility] documented in this encounter Plan of Treatment Not on file documented as of this encounter Procedures Procedure Name Priority Date/Time Associated Diagnosis Comments IMMUNOGLOBULINS, QUANTITATIVE STAT 04/03/2013 12:21 PM EDT Pancytopenia Anemia DIFFERENTIAL, AUTOMATED Routine 04/03/2013 12:21 PM EDT IRON AND TIBC Routine 04/03/2013 12:21 PM EDT Pancytopenia Anemia SEDIMENTATION RATE STAT 04/03/2013 12 :21 PM EDT Pancytopenia Anemia CBC (WITH DIFF) Routine 04/03/2013 12:21 PM EDT Pancytopenia Anemia TSH Routine 04/03/2013 12:21 PM EDT Pancytopenia Anemia PROTEIN ELECTROPHORESIS, SERUM STAT 04/03/2013 12:21 PM EDT Pancytopenia Anemia FOLATE, SERUM Routine 04/03/2013 12:21 PM EDT Pancytopenia Anemia FERRITIN Routine 04/03/2013 12:21 PM EDT Pancytopenia Anemia VITAMIN B12 STAT 04/03/2013 12:21 PM EDT Pancytopenia Anemia COMPREHENSIVE METABOLIC PANEL (NON-FASTING) Routine 04/03/2013 12:21 PM EDT Pancytopenia Anemia documented in this encounter Results * (ABNORMAL) Differential, Automated (04/03/2013 12:21 PM EDT) Neutrophils % 35.1 34.0 - 71.0 % CERNER MILLENNIUM Neutr Abs (ANC) 1.38(L) 1.50 - 6.30 x10(3)/mc L CERNER MILLENNIUM Lymphocytes % 52.5 19.0 - 53.0 % CERNER MILLENNIUM Lymphocytes Abs 2.1 1.0 - 3.6 x10(3)/mc L CERNER MILLENNIUM Monocytes % 9.1 4.0 - 13.0 % CERNER MILLENNIUM Monocyte Abs 0.4 0.2 - 1.0 x10(3)/mc L CERNER MILLENNIUM Eosinophils % 2.5 0.0 - 7.0 % CERNER MILLENNIUM Eosinophils Abs 0.1 0.0 - 0.5 x10(3)/mc L CERNER MILLENNIUM Basophils % 0.8 0.0 - 2.0 % CERNER MILLENNIUM Basophils Abs 0.0 0.0 - 0.2 x10(3)/mc L CERNER MILLENNIUM Immature Gran % 0.00 0.00 - 0.66 % CERNER MILLENNIUM Comment: Immature granulocytes(IG's)percentage and absolute count will include metamyelocytes, myelocytes, and promyelocytes. Blood smears from CBCs yielding IG's will be scanned manually for concordance. If this scan disagrees with the automated IG or if promyelocytes are noted, a manual differential will be performed. Yuly Gran Abs 0.00 0.00 - 0.05 x10(3)/mc L CERNER MILLENNIUM Blood specimen (specimen) 04/03/2013 12:21 PM EDT 04/03/2013 12:27 PM EDT Mateus Shah MD HEMATOLOGY ORDER DEMETRIO Performing Organization Address City/[facility] Co de Phone Number CERNER MILLENNIUM * TSH (04/03/2013 12:21 PM EDT) TSH 2.79 0.27 - 4.20 mcIU/mL CERNER MILLENNIUM Blood specimen (specimen) 04/03/2013 12:21 PM EDT 04/03/2013 12:27 PM EDT Narrative Resulting Agency Comment Spec In Lab Mateus Shah MD CHEMISTRY ORDERA BLES Performing Organization Address [facility] Co de Phone Number CERNER MILLENNIUM * Immunoglobulins, Quantitative (04/03/2013 12:21 PM EDT) IgG 907 700 - 1600 mg/dL CERNER MILLENNIUM IgA 236 70 - 400 mg/dL CERNER MILLENNIUM IgM 74 40 - 230 mg/dL CERNER MILLENNIUM Blood specimen (specimen) 04/03/2013 12:21 PM EDT 04/03/2013 12:27 PM EDT Narrative Resulting Agency Comment Spec In Lab Mateus Shah MD CHEMISTRY ORDERA BLES Performing Organization Address [facility] Co de Phone Number CERNER MILLENNIUM * Protein Electrophoresis, serum (04/03/2013 12:21 PM EDT) Total Prot Elec 6.5 6.4 - 8.3 gm/dL CERNER MILLENNIUM Albumin Elect 4.08 3.60 - 6.00 gm/dL CERNER MILLENNIUM Alpha1-Globuli n 0.16 0.10 - 0.30 gm/dL CERNER MILLENNIUM Alpha2-Globuli n 0.75 0.40 - 0.90 gm/dL CERNER MILLENNIUM Beta Globulin 0.72 0.50 - 1.00 gm/dL [facility] Gamma Globulin 0.79 0.50 - 1.30 gm/dL CERNER MILLENNIUM M1 Band None Detected None Detected gm/dL [facility] Scan See Note CERNER MILLENNIUM Comment:Please see scanned r eport in Chart Review under the [facility] Laboratory Heading. Blood specimen (specimen) 04/03/2013 12:21 PM EDT 04/03/2013 12:27 PM EDT Narrative Resulting Agency Comment Spec In Lab Mateus Shah MD CHEMISTRY ORDERA BLES Performing Organization Address City/[facility] Co de Phone Number [facility] * Sedimentation rate (04/03/2013 12:21 PM EDT) Sed Rate 16 0 - 20 mm/hr [facility] Blood specimen (specimen) 04/03/2013 12:21 PM EDT 04/03/2013 12:27 PM EDT Narrative Resulting Agency Comment Spec In Lab Mateus Shah MD HEMATOLOGY ORDER DEMETRIO Performing Organization Address [facility] Co de Phone Number [facility] * Folate, serum (04/03/2013 12:21 PM EDT) Folate Lvl 10.3 4.6 - 34.8 ng/mL [facility] Blood specimen (specimen) 04/03/2013 12:21 PM EDT 04/03/2013 12:27 PM EDT Narrative Resulting Agency Comment Spec In Lab Mateus Shah MD CHEMISTRY ORDERA BLES Performing Organization Address [facility] Co de Phone Number [facility] * (ABNORMAL) Vitamin B12 (04/03/2013 12:21 PM EDT) Vitamin B-12 1258(H) 207 - 974 pg/mL [facility] Blood specimen (specimen) 04/03/2013 12:21 PM EDT 04/03/2013 12:27 PM EDT Narrative Resulting Agency Comment Spec In Lab Mateus Shah MD CHEMISTRY ORDERA BLES Performing Organization Address [facility] de Phone Number [facility] * Iron and TIBC (04/03/2013 12:21 PM EDT) Iron 87 30 - 150 mcg/dL [facility] MILLENNIUM TIBC 262 250 - 450 mcg/dL [facility] Iron Saturation 33 20 - 50 % [facility] MILLENNIUM Blood specimen (specimen) 04/03/2013 12:21 PM EDT 04/03/2013 12:27 PM EDT Narrative Resulting Agency Comment Spec In Lab Mateus Shah MD CHEMISTRY ORDERA BLES Performing Organization Address [facility] de Phone Number [facility] * Ferritin (04/03/2013 12:21 PM EDT) Ferritin 266 30 - 400 ng/mL [facility] Comment: Pediatric reference ranges not verified at [facility], interpret with caution. Reference ranges for females greater than 50 years of age approach values for men, i.e., 30-400 ng/mL. Blood specimen (specimen) 04/03/2013 12:21 PM EDT 04/03/2013 12:27 PM EDT Narrative Resulting Agency Comment Spec In Lab Mateus Shah MD CHEMISTRY ORDERA BLES Performing Organization Address [facility] Co de Phone Number [facility] * (ABNORMAL) Comprehensive metabolic panel (non-fasting) (04/03/2013 12:21 PM EDT) Glucose Lvl 86 60 - 199 mg/dL [facility] Comment:Diabetes: >=200 mg/d L plus symptoms BUN 19(H) 8 - 18 mg/dL [facility] Creatinine 0.80 0.70 - 1.20 mg/dL [facility] Comment: Please note that the pediatric reference intervals supplied above were not validated at [facility]. Results from pediatric patients should be interpreted in conjunction to the patient's age, height and muscle mass. Sodium 143 135 - 145 mmol/L CERNER MILLENNIUM Potassium 3.6 3.5 - 5.0 mmol/L CERNER MILLENNIUM Comment: Please note: ??Patients with WBC >100,000 may have falsely elevated Potassium levels. ??For accurate Potassium quantification in these patients send serum separator tube (gold top) for subsequent determinations. ??Contact the Clinical Chemistry Laboratory if there are any questions. Chloride 103 98 - 107 mmol/L CERNER MILLENNIUM CO2 30 22 - 31 mmol/L CERNER MILLENNIUM Anion Gap 10 5 - 15 mmol/L CERNER MILLENNIUM Calcium 9.1 8.5 - 10.5 mg/dL CERNER MILLENNIUM Total Protein 6.8 6.4 - 8.3 gm/dL CERNER MILLENNIUM Albumin 3.9 3.2 - 5.2 gm/dL CERNER MILLENNIUM AST 22 0 - 30 unit/L CERNER MILLENNIUM ALT 15 0 - 30 unit/L CERNER MILLENNIUM Alk Phos 60 40 - 104 unit/L CERNER MILLENNIUM Total Bilirubin 0.2 0.2 - 1.3 mg/dL CERNER MILLENNIUM Bili, Direct 0.1 0.0 - 0.3 mg/dL CERNER MILLENNIUM Estimated GFR >60 >=60 CERNER MILLENNIUM Comment: This estimated GFR (eGFR) value was calculated using the MDRD equation which has been validated on patients between the ages of 18 and 70. The MDRD should not be used to assess kidney function in patients < 18 years of age or in patients with extremes of body mass, or in patients with acute kidney failure. This value should be multiplied by 1.2 for patients. For further information please copy and paste the following links into your internet browser. http://www.nkdep.nih.gov/lab-evaluation.shtml http://www.kidney.org/professionals/ Blood specimen (specimen) 04/03/2013 12:21 PM EDT 04/03/2013 12:27 PM EDT Narrative Resulting Agency Comment Spec In Lab Mateus Shah MD CHEMISTRY ORDERA BLES [facility] * (ABNORMAL) CBC (with Diff) (04/03/2013 12:21 PM EDT) WBC 3.9(L) 4.0 - 10.0 x10(3)/mcL CERNER MILLENNIUM RBC 3.74(L) 3.93 - 5.22 x10(6)/mcL CERNER MILLENNIUM Hemoglobin 12.0 11.2 - 15.7 gm/dL CERNER MILLENNIUM Hematocrit 35.7 34.0 - 45.0 % CERNER MILLENNIUM MCV 95.5(H) 79.0 - 94.0 fL CERNER MILLENNIUM MCH 32.1 26.6 - 32.2 pg CERNER MILLENNIUM MCHC 33.6 32.0 - 36.5 gm/dL CERNER MILLENNIUM Platelets 115(L) 145 - 370 x10(3)/mcL CERNER MILLENNIUM RDWSD 47.6(H) 35.0 - 46.0 fL CERNER MILLENNIUM RDWCV 13.8 10.9 - 14.4 % CERNER MILLENNIUM MPV 11.0 9.0 - 12.0 fL CERNER MILLENNIUM Blood specimen (specimen) 04/03/2013 12:21 PM EDT 04/03/2013 12:27 PM EDT Narrative Resulting Agency Comment Spec In Lab Mateus Shah MD HEMATOLOGY ORDER DEMETRIO [facility] documented in this encounter Visit Diagnoses Diagnosis Pancytopenia- Primary Other pancytopenia Anemia Anemia, unspecified documented in this encounter Care Teams Rail Maintenance Worker Relationship Specialty Start Date End Date Karri Meléndez MD [address] [place] [address] PCP - General 02/09/13 08/28/21 documented as of this encounter
--- OUTSIDE RECORDS SUMMARY | 2024-01-17 01:01 | XMS_ITS | Encounter Summary ---
[place] [address] Care Team Providers Care Endoscopy Registered Nurse Name Role Phone Leeann Meléndez MD Primary Care Provider Encounter Details Date Type Department Care Team (Late st Contact Info) Description 10/25/2016 Telephone [place] [address] Cass Foreman Social History Tobacco Use Types [...] * Telephone Encounter - Cass Foreman - 10/25/2016 2:37 PM EDT Left message for patient to call back to reschedule appointment with MICHELL - needs to be after MRI andMBS documented in this encounter Plan of Treatment Not on file documented as of this encounter Visit Diagnoses Not on filedocumented in this encounter Care Teams Endoscopy Registered Nurse Relationship Specialty Start Date End Date Leeann Meléndez MD [address] [place] [address] [address] [place] [address] PCP - General 02/09/13 08/28/21 documented as of this encounter
[2024-01-17 11:48] LABS: HCT 35.4 % (36.0-46.0); MCH 30.8 pg (27.0-33.0); MCHC 33.9 % (32.0-36.0); MCV 91 fL (80-95); MPV 10.8 fL (8.0-11.0); Platelet Count 159 10^3/uL (130-400); RDW 12.9 % (11.7-14.6); RDW-SD 42.5 fL; WBC 4.71 10^3/uL (4.4-10.8)
[2024-01-17 12:04] LABS: Anion Gap 12.5 mmol/L (3-11); BUN 19 mg/dL (7-18); CO2 28.5 mmol/L (21.0-32.0); CREATININE 1.1 mg/dL (0.55-1.02); Calcium 9.3 mg/dL (8.5-10.1); Chloride 104 mmol/L (98-107); Estimated GFR 55.07 (mL/min/1.73m2); Glucose 89 mg/dL (74-106); Potassium 3.2 mmol/L (3.5-5.1); Sodium 145 mmol/L (136-145)
[2024-01-17 12:33] LABS: Vitamin B12 623 pg/mL (193-986); Vitamin D 25 Total 95.5 ng/mL (30-100)
== END 2024-01-17 01:00 | disposition home or self-care (01) ==
LOC: LBO 00:59
PROVIDERS: PCP Family Medicine; Visit Provider Student in an Organized Health Care Education/Training Program
DX: M85.80 Other specified disorders of bone density and structure, unspecified site (principal); R41.89 Other symptoms and signs involving cognitive functions and awareness; T84.84XS Pain due to internal orthopedic prosthetic devices, implants and grafts, sequela; Z96.652 Presence of left artificial knee joint; Z01.818 Encounter for other preprocedural examination
CPT/HCPCS: 36415; 80048; 82306; 85027; 82607

== ENCOUNTER 2024-01-29 10:34 | Inpatient (IN) | payer OTHER, MEDICAID, SELFPAY ==
[2024-01-29] VITALS (48 sets, daily range): BP systolic 89–157; BP diastolic 45–86; PULSE 74–99; RESP 15–29; TEMP 35.5–36.4; O2SAT 89–100; BMI 24.2
--- NOTE | 2024-01-29 09:54 | W.ANESPRE ---
General Info Date of Service Date Performed: 01/29/24 Height: 5 ft 4 in Weight: 64 kg Body Mass Index (BMI): 24.2 Surgical Procedure: Operation Date: 01/29/24 13:10 Proposed Procedure Side Surgeon p Knee Total Revision, Patella Compartment -Attune Patella Left Dom Corea MD Meds Allergies and Home Medications Allergies Allergy/AdvReac Type Severity Reaction Status Date / Time Penicillins AdvReac Intermediate Nausea Verified 01/29/24 11:01 amoxicillin AdvReac Mild GI UPSET Verified 01/29/24 11:01 aspirin AdvReac Mild UPSET Verified 01/03/24 14:44 STOMACH SMOKE Allergy Unknown Other (See Uncoded 01/29/24 11:01 Comment) Home Medication ?Medication ?Instructions ?Recorded diclofenac sodium 1 % topical gel 4 g topical QID PRN pain #100 grams 10/27/20 (Voltaren) Custom Orthopaedic Shoe and #1 ea 02/12/22 Ankle-Foot Support cholecalciferol (vitamin D3) 50 2,000 unit PO DAILY #90 tab-caps 08/22/22 mcg (2,000 unit) tablet pravastatin 20 mg tablet 20 mg PO DAILY #90 tab-caps 02/11/23 gabapentin 300 mg capsule 300 mg PO BID #180 tab-caps 03/01/23 Custom Orthopaedic Shoe and Ankle #1 ea 04/30/23 Foot Orthosis potassium chloride 10 mEq 10 meq PO BID #60 tabs 07/22/23 tablet,extended release Depakote ER 250 mg tablet,extended 500 mg (2 x 250 mg) PO HS #180 tabs 10/07/23 release (divalproex) calcium carbonate (Calcium 600) 600 mg PO BID #180 tabs 10/17/23 hydrochlorothiazide 25 mg tablet 25 mg PO DAILY hypertension #30 10/25/23 tabs amitriptyline 10 mg tablet 10 mg PO QHS #90 tabs 12/16/23 cyanocobalamin (vitamin B-12) 1,000 mcg PO DAILY #90 tab-caps 12/17/23 1,000 mcg tablet,extended release (Vitamin B-12 ER) omeprazole 20 mg capsule,delayed 20 mg PO DAILY #90 tab-caps 01/24/24 release Current Visit Medications: Current Medications Generic Name Dose Route Start Last Admin Trade Name Freq PRN Reason Stop Dose Admin Acetaminophen 1,000 mg 01/29/24 06:00 Acetaminophen 500 Mg Tab PO 01/29/24 23:59 PREOP FLACO Celecoxib 400 mg 01/29/24 06:00 Celecoxib 200 Mg Cap PO 01/29/24 23:59 PREOP FLACO Gabapentin 300 mg 01/29/24 06:00 Gabapentin 300 Mg Cap PO 01/29/24 23:59 PREOP FLACO Ringer's Solution 1,000 mls @ 80 mls/hr 01/29/24 06:00 IV 01/29/24 23:59 INFUSION FLACO Cefazolin Sodium/Dextrose 2 gm in 50 mls @ 100 mls/hr 01/29/24 06:00 Ancef Duplex IVPB 01/29/24 23:59 PREOP FLACO Tranexamic Acid/Sodium Chloride 1,000 mg in 100 mls @ 600 mls/hr 01/29/24 06:00 IVPB 01/29/24 23:59 PREOP FLACO IV Miscellaneous Supplies 1 each 01/29/24 06:00 Iv Access IV 01/29/24 23:59 DIRECTED FLACO Sodium Chloride 0 ml 01/29/24 06:00 Normal Saline Flush 10 Ml Syr IV 01/29/24 23:59 PRN PRN Sodium Chloride 0 ml 01/29/24 06:00 Normal Saline 10 Ml Vial IJ 01/29/24 23:59 DIRECTED PRN Sterile Water 0 ml 01/29/24 06:00 Water,Injection,Sterile 10 Ml Vial IJ 01/29/24 23:59 DIRECTED PRN PFSH Active Problems Active Problems: Problem Status Onset Code Cognitive impairment Acute R41.89 Functional neurological symptom disorder with mixed symptoms Acute F44.7 Dysphagia Acute R13.10 Coccygalgia Acute M53.3 Painful total knee replacement, right Acute T84.84XA, Z96.651 Painful total knee replacement, left Acute T84.84XA, Z96.652 Degenerative joint disease of right hip Acute M16.11 Hypertension Chronic I10 Microscopic hematuria Chronic R31.29 Seizures Chronic 04/07/14 R56.9 Odynophagia Chronic 04/11/16 R13.10 Obstructive sleep apnea Chronic 02/09/15 G47.33 Hypercholesterolemia Chronic 10/16/12 E78.00 GERD (gastroesophageal reflux disease) Chronic 03/02/15 K21.9 Chronic pain syndrome Chronic G89.4 Constipation Chronic K59.00 Osteopenia Chronic M85.80 Hepatic steatosis Chronic K76.0 Osteoarthritis of carpometacarpal (CMC) joint of right thumb Chronic M18.11 Migraine headache without aura Chronic G43.009 Pes anserinus bursitis of left knee Chronic M70.52 Trochanteric bursitis, right hip Acute M70.61 Medical History Medical History History of COVID-19 (~08/2021) Hip pain Cognitive developmental delay Bilateral foot-drop Wears braces bilaterally, but no evidence on exam. Pernicious anemia improved with B12 supplementation Shoulder pain Chronic idiopathic [place]ocytopenic [place]pura (06/07/13[place] [facility] [place]fup if plt<40K) Depressive disorder electroconvulsive therapy [place] [facility] [place] History of tobacco use quit age 20, 5 packyr history. Pancytop[place] [facility] [place]/ no evidence of lymphoproliferative disorder Surgical History Surgical History Status post repair of ligament of ankle H/O right wrist surgery S/P cataract extraction bilateral Status post ovarian cystectomy EGD - IV Sedation Total knee replacement status (04/27/13) Right TKA - 2008 Left TKA - 2012 Tobacco Smoking/Tobacco Use Status: Former Tobacco Use Passive smoking exposure: Yes Alcohol Alcohol Intake: never Substance Use Substance use: Never Substance use type: does not use Vital Signs and Lab Results Vital Signs Most Recent Vital Signs in EMR: Temp Pulse Resp BP Pulse Ox 35.9 C L 94 H 18 157/86 H 89 L 01/29/24 11:13 01/29/24 11:13 01/29/24 11:13 01/29/24 11:13 01/29/24 11:13 Lab Results Blood Type / Crossmatch: No Data to Display Complete Blood Count: White Blood Count 4.71 10^3/uL (4.4-10.8) 01/17/24 11:30 Red Blood Count 3.90 10^6/uL (3.93-5.22) L 01/17/24 11:30 Hemoglobin 12.0 g/dL (11.2-15.7) 01/17/24 11:30 Hematocrit 35.4 % (36.0-46.0) L 01/17/24 11:30 Platelet Count 159 10^3/uL (130-400) 01/17/24 11:30 Complete Metabolic Panel: Sodium 145 mmol/L (136-145) 01/17/24 11:30 Potassium 3.2 mmol/L (3.5-5.1) L 01/17/24 11:30 Chloride 104 mmol/L (98-107) 01/17/24 11:30 Carbon Dioxide 28.5 mmol/L (21.0-32.0) 01/17/24 11:30 BUN 19 mg/dL (7-18) H 01/17/24 11:30 Creatinine 1.1 mg/dL (0.55-1.02) H 01/17/24 11:30 Est GFR (CKD-EPI 2020) 55.07 (mL/min/1.73m2) 01/17/24 11:30 Calcium 9.3 mg/dL (8.5-10.1) 01/17/24 11:30 Glucose 89 mg/dL (74-106) 01/17/24 11:30 Liver Function Panel: No Data to Display Coagulation Panel: No Data to Display Cardiac Panel: No Data to Display Arterial Blood Gas: No Data to Display Venous Blood Gas: No Data to Display Pancreas Panel: No Data to Display Thyroid Panel: No Data to Display Infectious Disease: No Data to Display Blood Cultures: No Data to Display Toxicology Panel: No Data to Display Anesthesia Assessment and Plan Anesthesia History Personal History: No History of Anesthesia Complications Family History: No Family History of Anesthesia Complications Exercise Tolerance Exercise Tolerance: Metabolic Equivalents>4 Pertinent Negatives Pertinent Negatives: No Symptoms of GERD Cardiac & Pulmonary Exam Cardiac Exam: Normal S1/S2 Heart Sounds Pulmonary Exam: Clear Bilateral Breath Sounds Implantable Cardiac Device Does patient have a Pacemaker or an ICD?: No Airway Exam Known Difficult Airway: No Mallampati Class: 2 Mouth Opening: Narrow (< 3cm) Thyromental Distance: Greater than 3 cm Neck Range of Motion: Full ROM Neck Circumference: Normal Teeth Condition: Edentulous ASA Classification ASA Score: ASA 3 Emergency Case?: No NPO Status NPO Status: NPO Clears >2 hours, Solids >8 hours Anesthesia Plan Resuscitation Status: Full Code Anesthesia Technique: Spinal Anesthesia Airway Planned: Natural Airway Monitors Used: Standard Monitors Preoperative Comments:: 69 yo female for patella revision. Sig PMHx: HTN, MARCIO, GERD, seizures (per last neurology note she may not have epilepsy and is no longer on depakote), cognitive decline, migraine (dizzy spells), chronic bilateral foot drop. Previous Anes: history of playing possum per a previous anesthesia record. - cysto, prop, natural airway, no issues.
[2024-01-29] MEDS: Lactated Ringers 1,000 ML 80 ML IV ×2 (11:30→16:15)
[2024-01-29] MEDS: Acetaminophen 500 MG TAB 1000 MG PO ×2 (12:25→19:54)
[2024-01-29] MEDS: Gabapentin 300 MG CAP PO ×2 (12:26→19:55)
[2024-01-29] MEDS: Celecoxib 200 MG CAP 400 MG PO (12:26)
[2024-01-29] MEDS: ceFAZolin 2 GM/50 ML BAG IVPB (13:02)
[2024-01-29] MEDS: TRANEXAMIC ACID/SOD. CHL. 1,000 MG/100 ML BAG 600 MG IVPB (13:07)
--- NOTE | 2024-01-29 15:41 | ROE_ITS ---
Date of service: 01/29/24 Time of Service: 13:10 Operative Note Operative Note DATE OF PROCEDURE: 01/29/24 PRE-OP DIAGNOSIS: Painful Left Knee Replacement POST-OP DIAGNOSIS: same PROCEDURE: Revision of patellar component, left knee SURGEON: Dom Corea [employer] ENGINEER: [place] ANESTHESIA TYPE: Spinal Refer to Anesthesia Record ESTIMATED BLOOD LOSS: 50 TOURNIQUET TIME: 0 COMPLICATIONS: None Indications: Maria Del Carmen is a 69-year-old female who has had ongoing pain about the left knee after knee replacement. His pain was mostly anterior. X-rays showed what appeared to be malpositioning of the patella with erosion of the bone of the patella surrounding the button. Given the failure of other nonoperative options I offered revision of the patellar component. I discussed risks to include bleeding, infection, pain, stiffness, continued symptoms, weakness, blood clot. Despite these risk, she elected to proceed. Findings: There is notable wear of the patellar button with bony prominence and bony erosion of the patella both medially and laterally. There also was thinning of the quadriceps and medial retinaculum with what appear to be some diastases from the previous arthrotomy. Procedure Description: Maria Del Carmen was greeted and evaluated in the day surgery unit. Her identity was confirmed and the correct site was identified and marked. The consent was reviewed the patient and signed. The history and physical was updated. She was taken back to the operating room and placed in the supine position on the operating room table. The left leg was prepped with ChloraPrep and draped in a standard fashion. Prophylactic antibiotics in the form of cefazolin were given. A timeout was performed for safe surgery. The previous stockinette was secured to the lower leg and was split overlying the anterior knee. A secondary ChloraPrep wash was then performed and once this had dried, the previous incision was marked and Ioban was applied. The previous incision was then incised utilizing the central two thirds. This was taken down through the skin. The patella was identified and the extensor mechanism was also identified and full-thickness soft tissue flaps were elevated. The vastus medialis seem to be in a slightly more medial and proximal position than expected. The quadriceps and the medial retinaculum was quite thinned and the suspected area of the arthrotomy, likely representing some diastases. However, there is no true defect. An arthrotomy was then performed in a full-thickness fashion. The patella was everted. Soft tissue attachments to the patella and the infrapatellar fat pad were removed allowing eversion of the patella. At th is point was obvious that there was notable wear of the patella both medially and laterally with reactive bone changes around it. The bone was quite soft adjacent to the patella and there is erosions into the bone both medially and laterally. There is no other gross defects seen about the femoral component, tibial component or polyethylene. A synovectomy was performed of any loose or apparent synovitis with a rongeur. However, there is very minimal. Utilizing the patellar bone preparation clamp, I was able to clamp the patella below the level of the plastic and cement. Utilizing oscillating saw I removed the patella. The plastic buttons were removed and any excess cement was also removed. The bone was really soft medially and laterally which may preparation with a new patella quite challenging while trying to maintain some bone stock. Utilizing the clamp I was able to place a 32 mm button in the right position which was tested. This was centralized within the bone of the patella. The locals were drilled. A few other accessory 2 mm holes were prepared in the patella. On the back table, a single batch of high viscosity antibiotic laden cement was the next with vacuum assistance. Once this was ready a small amount was placed on the backside of patella and another amount was placed onto the clean and dried surface of the patella bone. This was manually pressurized into the bone of the patella and then the patellar button was placed. It was clamped and held in position for 15 minutes. During this time the knee was thoroughly irrigated with Betadine solution. The deep tissues were injected with a mixture of ropivacaine, epinephrine, clonidine, and ketorolac. After 15 minutes, the clamp was removed. The knee was thoroughly irrigated with saline. The knee was brought up into flexion, 90 degrees, and where was closed. The arthrotomy was closed with a pants over vest type technique to overlap the soft tissues of the extensor mechanism and the arthrotomy, potentially correcting some of the diastases which had occurred. This was done with #2 FiberWire. The overlapping tissue was then fully secured with a running, barbed #1 PDS suture, strata fix. The wound was once again irrigated. The deep tissues were closed with a 0 Vicryl followed by 2-0 Vicryl. The skin was closed with a running 4-0 Monocryl, reinforced with skin glue. Mepilex silver dressing was applied followed by foot to thigh Elbert wrap. A Cryo/Cuff was also applied. At the end the case all counts were correct. She will be weightbearing as tolerated. She will be admitted and worked with physical therapy in the morning.
--- NOTE | 2024-01-29 15:45 | W.ANESPOSTOP ---
Postoperative Evaluation Date, Time and Location Date Performed: 01/29/24 Time Performed: 15:30 Patient Location: PACU Vital Signs Most Recent Imported Vital Signs: Most Recent Vital Signs Temp Pulse Resp BP Pulse Ox 36.3 C L 89 16 119/56 L 98 01/29/24 15:21 01/29/24 15:21 01/29/24 15:21 01/29/24 15:21 01/29/24 15:21 Pain Score Most Recent Pain Score: Most Recent Pain Score Pain Level 0 01/29/24 15:14 Assessment Mental Status: Awake (Alert & Oriented to Patient Baseline) Airway and Respiratory Function: Patent airway with normal (patient baseline) respiratory exam Cardiovascular Function: Hemodynamically Stable Hydration Status: Adequately Hydrated Nausea & Vomiting: No Nausea or Vomiting Pain: Pt. Denies Any Pain Peripheral Nerve Block: Patient did not receive a nerve block
--- NOTE | 2024-01-29 16:14 | PT.INIE ---
PT Notes Visit Reasons: Revision L TKR patella Physical Therapy Initial Evaluation Date: 01/29/24 Referring Doctor: Dr. Corea PT Orders: PT CONSULT: left TKA revision Precautions: WBAT Patient Profile/Admitting Diagnosis: Patient seen in acute care setting following left TKA revision, post op day #0. Presentation is complicated by cognitive impairment. Social History/Home Situation: Maria Del Carmen lives with her and their adult son. She typically ambulates with a quad cane and bilat AFOs. Has 3 [address]AV[address] home, and full flight to their only bathroom. Equipment Owned/DME: cane. May have FWW, but unsure. She is unsure if she's ever been issued a walker previously. Subjective: Dara would like to get up to use the commode. States that her knee feels good. She's able to feel her leg, but has no pain. Objective: General Observation: Resting in bed with IV in LUE. Mental Status: A&Ox3. Limitations in safety awareness as noted below. Requires cues for safety throughout session. Pain: 0/10 ROM: Right Upper Extremity: Shoulder flexion to 90*. Elbow and wrist motion WFL. Left Upper Extremity: Shoulder flexion to 90*. Elbow and wrist motion WFL. Right Lower Extremity: Hip flexion to 100* functionally. Right knee motion allows 0-120* demonstrated actively. Ankle DF to ~5* actively. Left Lower Extremity: Actively demonstrates hip flexion to 90*. Knee motion allows AROM 0-95*. Ankle DF to ~5*. Strength: Right Upper Extremity: Shoulder flexion 3-/5. Biceps 4/5. Triceps 4/5. Left Upper Extremity: Shoulder flexion 3-/5. Biceps 4/5. Triceps 4/5. Right Lower Extremity: Quads 5/5. Ankle DF 4/5. Left Lower Extremity: Able to perform SLR without extension lag. Able to pump ankle and wiggle toes. Sensation: intact distally Bed Mobility/Transfers: Supine to sit : independent sit-supine: independent scooting in bed: min A, max cues Sit to stand : supervision Stand to sit supervision Bed to commode: CGA with FWW, max cues. During initial transfer, patient demonstrates limited safety awareness, abandoning FWW and turning unsupported. Requires cues for FWW management, with good carry over. Gait: Ambulates 3' with FWW, CGA. Patient remains very sleepy from surgery, and further ambulation was deferred this afternoon due to safety concerns. Balance: Static Sitting: good Dynamic Sitting: good Static Standing: good Dynamic Standing: fair Special Tests: Mobility Limitations Standardized Measure [facility] AM-PAC 6 clicks Basic Mobility Inpatient Short Form: Raw Score: 20 CMS Score: 36% impairment Informed Consent/Education: Patient instructed in purpose of PT consult. Packet containing TKA exercise protocol has been given to patient. Education and training on initial set of exercises that can be done at home have been completed with patient. Treatment: Initial Evaluation (98472) Therapeutic Exercises (74440) Adra was instructed in HEP consisting of the following: ankle pumps x 1 minute quad sets x 1 minute glute sets x 1 minute heel slides 10x SLR 10x passive extension hang 3 minutes Assessment: Patient presents with clinical signs and symptoms consistent with current/admitting diagnoses that have resulted to mobility limitations, gait instability, generalized weakness, and impairment of motor control, demonstrated by the following impairment level findings: 1. Decreased strength to left knee major muscle groups 2. Impaired standing balance 3. Limitation of joint range of motion in left knee Impairments are contributing to the following functional limitations: 1. Inability to safely ambulate without assistive device 2. Increase completion time for mobility ADL performance 3. Increased fall risk Patient is assessed as moderate complexity based on the following: History: 69-year-old female with impairment level findings, functional limitations, and past medical history as indicated above. Complicating factor of cognitive impairment and limited compliance with outpatient PT intervention historically. Examination: Demonstrable impairment in strength, balance, and mobility level with underlying impairments and functional limitations as documented above Presentation: evolving Decision Making: moderate Goals: 1. Able to ambulate household distances (>50') with FWW, supervision 2. Able to manage stairs with bilat UE support and CGA Plan of Care/Treatment Plan: Plan to see for one additional PT session tomorrow AM for further gait and stair training. Will review HEP at that time. DISCHARGE RECOMMENDATIONS: Home with outpatient PT TREATMENT CODE/TIME: 83193, [id number] ([id number]) Kylah Davis, PT, DPT [facility] Thank you for the opportunity to participate in the care of this patient. Please sign an return this page within 30 days if you agree with the above POC. Thank you! Physician Signature Date [facility] All Active Problems Cognitive impairment (Acute) Functional neurological symptom disorder with mixed symptoms (Acute) Dysphagia (Acute) Coccygalgia (Acute) Painful total knee replacement, right (Acute) Painful total knee replacement, left (Acute) Degenerative joint disease of right hip (Acute) Hypertension (Chronic) Microscopic hematuria (Chronic) Seizures (Chronic 04/07/14) unspecified type/ EEG 2013 Odynophagia (Chronic 04/11/16) 2016: x2 in 2016/ neg. neck CT and exam : [facility] [place] : extensive workup negative may be neuropathic;suggests neurontin/Lyrica Obstructive sleep apnea (Chronic 02/09/15) good response to CPAP Hypercholesterolemia (Chronic 10/16/12) GERD (gastroesophageal reflux disease) (Chronic 03/02/15) manometry normal 2016: gastroscopy :oesophagitis/no H.Pylori Dr.Danielson Holder 2015: fup ongoing Chronic pain syndrome (Chronic) Constipation (Chronic) Osteopenia (Chronic) dx 2013; last DEXA 2016 and stable Hepatic steatosis (Chronic) Osteoarthritis of carpometacarpal (CMC) joint of right thumb (Chronic) Migraine headache without aura (Chronic) Pes anserinus bursitis of left knee (Chronic) Trochanteric bursitis, right hip (Acute) Medical History History of COVID-19 (~08/2021) Hip pain Cognitive developmental delay Bilateral foot-drop Wears braces bilaterally, but no evidence on exam. Pernicious anemia improved with B12 supplementation Shoulder pain Chronic idiopathic thrombocytopenic purpura (06/07/13) [facility] [place] Hemato. 2012 (fup if plt<40K) Depressive disorder electroconvulsive therapy 1997 [facility] [place] History of tobacco use quit age 20, 5 packyr history. Pancytopenia [facility] [place] Dr.C. Shah/ no evidence of lymphoproliferative disorder Surgical History Status post repair of ligament of ankle H/O right wrist surgery S/P cataract extraction bilateral Status post ovarian cystectomy EGD - IV Sedation Total knee replacement status (04/27/13) Right TKA - 2008 Left TKA - 2012
[2024-01-29] MEDS: Potassium Chloride 10 MEQ TABCR PO (19:54)
[2024-01-29] MEDS: Aspirin E.C. 81 MG TABEC PO (19:55)
[2024-01-29] MEDS: Divalproex Sodium 500 MG TAB.ER.24H PO (19:55)
[2024-01-29] MEDS: Calcium Carbonate 1.5 GM TAB PO (19:55)
[2024-01-29] MEDS: Polyethylene Glycol 3350 17 GM PACKET PO (19:55)
[2024-01-29] MEDS: Docusate Sodium 100 MG CAP PO (19:55)
[2024-01-29] MEDS: ceFAZolin 1 GM/50 ML BAG IVPB (19:55)
[2024-01-29] MEDS: Celecoxib 200 MG CAP PO (19:55)
[2024-01-29] MEDS: Amitriptyline 10 MG TAB PO (19:55)
[2024-01-30 01:12] VITALS: BP 124/90; PULSE 77; RESP 16; TEMP 36.4; O2SAT 99
[2024-01-30] MEDS: ceFAZolin 1 GM/50 ML BAG IVPB (04:47)
[2024-01-30 07:11] VITALS: BP 116/61; PULSE 72; RESP 15; TEMP 35.7; O2SAT 99
--- NOTE | 2024-01-30 07:16 | W.PM.DS.N ---
Date of service: 01/30/24 Time of Service: 07:16 Discharge Plan Disposition Patient Disposition: Home W/Home Health Services Condition: Improving Discharge Details Reason For Visit: Revision L TKR patella Admit Date/Time: 01/29/24 10:34 Admit Provider: Dom Corea Attending Provider: Dom Corea Primary Care Provider: Harriet Foley Hospital Course Hospital Course: Patient was admitted to the medical/surgical floor following the procedure. The surgery was tolerated well without any notable medical, surgical, or anesthetic complications. Mobilization began postoperatively. She was voiding spontaneously. Vitals were stable. Overnight she did have an episode where she fell to the ground and a low energy fall to a seated position. She was found have no other issues or complications from this. Physical therapy worked with the patient and was cleared for discharge home. No acute medical issues. Pain was controlled on oral regimen. Home Meds and New Rx's Prescriptions: New celecoxib 200 mg capsule 200 mg PO BID PRN (Reason: pain) Qty: 60 1RF aspirin 81 mg tablet,delayed release (DR/EC) 81 mg PO BID Qty: 60 0RF tramadol 50 mg tablet 50 mg PO Q4H PRNQty: 18 0RF Continued gabapentin 300 mg capsule 300 mg PO BID Qty: 180 4RF Rx Instructions: take one capsule twice a day amitriptyline 10 mg tablet 10 mg PO QHS Qty: 90 3RF diclofenac sodium [Voltaren] 1 % gel 4 g topical QID PRN (Reason: pain) Qty: 100 3RF Rx Instructions: apply to knee, ankle, foot (DME) Custom Orthopaedic Shoe and Ankle-Foot Support See Rx Instructions .Route .MEDSUPPLY Qty: 1 0RF Rx Instructions: As directed divalproex [Depakote ER] 250 mg tablet extended release 24 hr 500 mg PO HS Qty: 180 3RF cyanocobalamin (vitamin B-12) [Vitamin B-12] 1,000 mcg tablet extended release 1,000 mcg PO DAILY Qty: 90 4RF cholecalciferol (vitamin D3) 50 mcg (2,000 unit) tablet 2,000 unit PO DAILY Qty: 90 4RF pravastatin 20 mg tablet 20 mg PO DAILY Qty: 90 4RF (DME) Custom Orthopaedic Shoe and Ankle Foot Orthosis See Rx Instructions .Route .MEDSUPPLY Qty: 1 0RF Rx Instructions: As directed potassium chloride 10 mEq tablet extended release 10 meq PO BID Qty: 60 3RF calcium carbonate [Calcium 600] 600 mg calcium (1,500 mg) tablet 600 mg PO BID Qty: 180 4RF hydrochlorothiazide 25 mg tablet 25 mg PO DAILY Qty: 30 3RF omeprazole 20 mg capsule,delayed release(DR/EC) 20 mg PO DAILY Qty: 90 4RF Discharge Instructions Additional Instructions: Total Knee Discharge Instructions Activity: The most important activity is to walk and to work on gentle motion (both flexion and extension). You should try to take short walks a few times a day. It is important that when resting you work on keeping the knee straight. Work on activating your quadriceps as much as you can. Avoid putting a pillow behind the knee as this will encourage flexion. Work on range of motion exercises as provided by Physical Therapy. - You have been ordered home health physical therapy to assist with your gait and strength. - You should wear the ROBERT hose on both legs for 2 weeks. You may remove these at night. You may also use any compression sock in place of the ROBERT hose. Dressing: Remove the Elbert wrap by 2 days after your surgery and put on the ROBERT stocking given to you from the hospital. Keep the surgical dressing (underneath the ELBERT wrap) in place for at least one week. After the first week it may be removed and replaced with light gauze and tape or nothing. The wound and dressing may get wet after 3 days but avoid soaking the dressing or otherwise it will need to be changed. Many people prefer covering the dressing with cling wrap (saran wrap) to minimize it from getting soaked. If it gets wet, just pat dry. If it starts to peel off then it will need to be changed. Medications: - You should take Tylenol and anti-inflammatory Celebrex as your primary pain control medications. If the Celebrex is too expensive or not covered, please call the office for another alternative (Advil/Ibuprofen or Naproxen/Aleve) - You have been prescribed a stronger pain medication Tramadol for breakthrough pain, take as needed as prescribed. - You will continue your stomach acid reduction agent Omeprazole to help reduce stomach acid and reflux. - You will continue your Gabapentin to help with restlessness and nerve pain. - You will be taking Aspirin 81mg twice a day for DVT prevention unless instructed otherwise. - You have also been prescribed Decadron to take to control post-operative nausea and pain. You will start this tomorrow. - If you have constipation you should take Colace or Miralax (both [id number]). It takes most people 3-4 days to have a bowel movement. Follow-up: 2 weeks If you have any acute concerns or questions, please do not hesitate to contact the office at [phone]. You may contact Dr. Corea with any questions after hours through the hospital at [phone] or on his cell phone at [phone]. 1. Encounter Date and Reason I certify that Maria Del Carmen Rodriguez was seen by Dom Corea MD on 01/30/24 and that I had a [id number] encounter with this patient that meets the physician face to face encounter requirements. 2. Clinical Findings Supporting Skilled Need and Homebound Status I certify that home health services are medically necessary, include either intermittent assisted and/or physical/speech therapy, and that this patient is homebound in that absences from the home require considerable and taxing effort and are infrequent or of short duration, or are attributable to the need to receive medical care. [X] (a) Attached documentation from encounter provides clinical findings supporting skilled need and homebound status (including what assistance patient requires to leave the home). The encounter with the patient was in whole, or in part, for the following medical condition, which is the primary reason for home health care: Revision L TKR patella Alf: Physical Therapy: Maria Del Carmen would benefit from home health physical therapy and Occupational Therapy. Maria Del Carmen is recovering from revision of the patellar component about her left knee with revision of her quadriceps and arthrotomy repair. She has no formal restrictions. She may weight-bear as tolerated. She should work on active knee extension along with gentle range of motion and gait training. She has notable weakness and gait dysfunction following surgery and due to pain leading up to the time of surgery. Speech Therapy: Homebound: Maria Del Carmen is homebound due to notable weakness and gait dysfunction following knee surgery. 3. Certification and Authentication I certify that I composed the above information based on my clinical judgement relating to this patient's medical condition and, if applicable, clinical findings communicated to me by the NPP or inpatient physician who performed the Home Health Referral. All further orders will be obtained through Dr. Corea Referrals: Dom Corea MD [ [facility] STAFF PHYSICIAN] - Activity:: Activity as Tolerated Equipment/Supplies:: Walker Diet:: As Tolerated Discharge Orders Discharge Orders: Discharge Order (Routine); Ordered 01/30/24 Ordered By: Dom Corea DS: Summary Time Spent with Patient providing and/or coordinating discharge services: Less than 30 minutes Status at Discharge Functional status at discharge: uses cane/walker Overall status at discharge: patient is progressing back to baseline Mental Status: mental status grossly normal Speech and Movement: speech and movement normal Mood: congruent mood Affect: normal affect Quality:SDOH Health Related Social Needs: No Data to Display Exam Narrative Exam Narrative: Maria Del Carmen is sitting up in the bed. No acute distress. Alert and orient x 3. Evaluation of the left leg shows a clean dry and intact dressing. She is able to straight leg raise with no lag. She demonstrates flexion to at least 80 to 90 degrees. She has intact ankle dorsiflexion, plantarflexion, great toe extension, great toe flexion. Psych Mental Status: mental status grossly normal Speech and Movement: speech and movement normal Mood: congruent mood Affect: normal affect DS: Data Vitals/I&O Vitals and I&O: Vital Signs Temperature 35.7 C L 01/30/24 07:11 Temperature Source Temporal Artery Scan 01/30/24 07:11 Pulse 72 01/30/24 07:11 Pulse Rhythm Regular 01/29/24 20:43 Pulse 87 01/29/24 15:21 Respiratory Rate 15 01/30/24 07:11 Respiratory Effort Normal, Non-Labored 01/29/24 20:43 Respiratory Depth Normal 01/29/24 15:34 Respiratory Pattern Normal 01/29/24 15:34 Blood Pressure 116/61 01/30/24 07:11 Blood Pressure Mean 75 01/29/24 15:21 Pulse Oximetry 99 01/30/24 07:11 Respiratory End-tidal CO2 40 01/29/24 15:21 Oxygen Delivery Method Room Air 01/30/24 07:11 Oxygen Flow Rate 0 01/30/24 07:11 Pain Level 0 01/30/24 07:11 Intake & Output 01/29/24 01/29/24 01/30/24 11:59 23:59 11:59 Intake Total 2106.333 / 2106.333 640 / 640 Output Total 1800 / 1800 800 / 800 Balance 306.333 / 306.333 -160 / -160 Weight 64 kg 64 kg Intake: IV 1126.333 / 1126.333 640 / 640 Oral 980 / 980 Output: Urine 1450 / 1450 800 / 800 Emesis 300 / 300 Estimated Blood Loss 50 / 50 Other: Urine Color Yellow Yellow Urine Appearance Clear Clear Urine Odor None None Comment Pt up to commode; did not void at that time. Bedpan 20 minutes later, 300 ml out. Emesis Description None Voiding Methods Toilet Bedside Commode PFSH All Active Problems Cognitive impairment (Acute) Functional neurological symptom disorder with mixed symptoms (Acute) Dysphagia (Acute) Coccygalgia (Acute) Painful total knee replacement, right (Acute) Painful total knee replacement, left (Acute) Degenerative joint disease of right hip (Acute) Hypertension (Chronic) Microscopic hematuria (Chronic) Seizures (Chronic 04/07/14) unspecified type/ EEG 2013 Odynophagia (Chronic 04/11/16) 2016: x2 in 2016/ neg. neck CT and exam : [facility] [place] : extensive workup negative may be neuropathic;suggests neurontin/Lyrica Obstructive sleep apnea (Chronic 02/09/15) good response to CPAP Hypercholesterolemia (Chronic 10/16/12) GERD (gastroesophageal reflux disease) (Chronic 03/02/15) manometry normal 2016: gastroscopy :oesophagitis/no H.Pylori Dr.Danielson Holder 2015: fup ongoing Chronic pain syndrome (Chronic) Constipation (Chronic) Osteopenia (Chronic) dx 2013; last DEXA 2017 and stable Hepatic steatosis (Chronic) Osteoarthritis of carpometacarpal (CMC) joint of right thumb (Chronic) Migraine headache without aura (Chronic) Pes anserinus bursitis of left knee (Chronic) Trochanteric bursitis, right hip (Acute) Medical History History of COVID-19 (~08/2021) Hip pain Cognitive developmental delay Bilateral foot-drop Wears braces bilaterally, but no evidence on exam. Pernicious anemia improved with B12 supplementation Shoulder pain Chronic idiopathic thrombocytopenic purpura (06/07/13) [facility] [place] Hemato. 2012 (fup if plt<40K) Depressive disorder electroconvulsive therapy 1998 [facility] [place]) History of tobacco use quit age 20, 5 packyr history. Pancytopenia [facility] [place] Dr.C. Shah/ no evidence of lymphoproliferative disorder Surgical History Status post repair of ligament of ankle H/O right wrist surgery S/P cataract extraction bilateral Status post ovarian cystectomy EGD - IV Sedation Total knee replacement status (04/27/13) Right TKA - 2008 Left TKA - 2012 Family History Mother No problems noted. Maternal Grandfather No problems noted. Paternal Grandfather No problems noted. Maternal Grandmother No problems noted. Paternal Grandmother No problems noted. 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 Pets and animals: Yes Pets and animals: dog(s) and other Details: ferrets Current gender identity: decline to answer What is your relationship status?: How often do you talk on the phone with friends or family?: three or more times per week How often do you get together with friends or relatives?: three or more times per week How often do you attend judaism or scientologist services?: decline to answer Do you belong to any clubs or organized social groups?: no Panel score (0-1 are the most socially isolated patients): 2 What type of physical activity do you participate in: decline to answer Duration: decline to answer Frequency: decline to answer Sonya/Nondenominational: No preference Special sonya needs: No Seatbelt use: always Drive intox or ride w/intox cdl dedicated truck driver: No Do you feel safe at home: Yes Do you feel safe in your relationship?: Yes Additional Social history: Gees kalyan [place]. Time Spent with Patient Time Spent with Patient: <45 minutes Time was spent: preparing to see the patient(eg.review tests), obtaining and/or reviewing separately otained hiistory, ordering medications,tests, procedures and counseling the patient
--- NOTE | 2024-01-30 07:56 | PT.INTREAT ---
PT Notes Visit Reasons: Revision L TKR patella Inpatient Physical Therapy Treatment Note [facility] Date: 01/30/24 PRECAUTIONS:WBAT LLE SUBJECTIVE: Dara states that her knee is feeling good. She is unsure if she has a walker at home, but is able to place a call to her during PT session. He reports that he has a walker at home for her. She additionally reports that they have a commode that she'll be using downstairs to avoid the full flight up to the bathroom. OBJECTIVE: ? PAIN: 010 Therapeutic Activities (05152d8): Direct one-on-one instruction in dynamic activities to improve functional performance. ? BED MOBILITY/TRANSFERS? Rolling L/R: independent Supine-sit: independent? Sit-supine: independent ? Sit-stand: SBA, initially requiring cues for hand placement, although with good carryover? Stand-sit: SBA, initially requiring cues for hand placement, although with good carryover? GAIT? Assistive Device: FWW ? Weight bearing: WBAT Assist: CGA initially, progressing to supervision ? Distance:? 150'x2 ? STAIRS: Instructed in stair management with step to pattern, bilat UE support. Manages therapeutic stairs 6x2, ascending and descending with SBA and minimal cueing. ? Therapeutic Exercises (87078v8): Direct one-on-one instruction in therapeutic exercises to develop strength, endurance, range of motion and flexibility. ? Reviewed the following exercises and went over handout: ankle pumps x 1 minute quad sets x 1 minute glute sets x 1 minute heel slides 10x SLR 10x passive extension hang 3 minutes ASSESSMENT:? Able to demonstrate good independence with ambulation and stair management. Pain well controlled. Appropriate for discharge home once cleared by MD. Goals: 1. Able to ambulate household distances (>50') with FWW, supervision (MET) 2. Able to manage stairs with bilat UE support and CGA (MET) PLAN: D/C home once medically appropriate. TREATMENT CODE/TIME: [id number] ([id number], [id number]) DISCHARGE RECOMMENDATION: Home with outpatient PT Kylah Davis, PT, DPT [facility]
[2024-01-30] MEDS: Gabapentin 300 MG CAP PO (07:57)
[2024-01-30] MEDS: Pravastatin 20 MG TAB PO (07:57)
[2024-01-30] MEDS: Celecoxib 200 MG CAP PO (07:57)
[2024-01-30] MEDS: Aspirin E.C. 81 MG TABEC PO (07:57)
[2024-01-30] MEDS: Calcium Carbonate 1.5 GM TAB PO (07:57)
[2024-01-30] MEDS: Cholecalciferol (Vitamin D3) 1,000 UNIT TAB 2000 UNITS PO (07:58)
[2024-01-30] MEDS: Dexamethasone 4 MG TAB PO (07:58)
[2024-01-30] MEDS: Potassium Chloride 10 MEQ TABCR PO (07:58)
[2024-01-30] MEDS: Omeprazole 20 MG CAPCR PO (07:58)
[2024-01-30] MEDS: Cyanocobalamin 500 MCG TAB 1000 MCG PO (07:58)
[2024-01-30] MEDS: Docusate Sodium 100 MG CAP PO (07:59)
[2024-01-30] MEDS: Acetaminophen 500 MG TAB 1000 MG PO (07:59)
[2024-01-30] MEDS: hydroCHLOROthiazide 25 MG TAB PO (07:59)
--- NOTE | 2024-01-30 09:12 | PDOC.CMIN ---
Date of service: 01/30/24 Time of Service: 09:12 Care Management Initial Assmt Initial Assessment Reason for Hospitalization: TKR Functional Status/Living Situation Town of Residence: [place], [place] Resides with: Spouse (Kellen) Advance Directives Advance Directives: Do you have an Advance Directive: N 12/25/23 14:33 AD On File at [facility]: N 12/25/23 14:33 Date Asked 04/08/23 12/25/23 14:33 AD Date Reviewed COLST On File at [facility] COLST Date Scanned Code Status Resuscitation Status Full Code Portal Pt does not currently have a portal and education provided: No Insurance Coverage/Financial Issues Insurance: [employer] Care Team Visit Care Team Role Provider Type Harriet Foley MD Primary Care Provider [facility] STAFF PHYSICIAN [facility] Other Providers OTHER Dom Corea MD Admit Provider [facility] STAFF PHYSICIAN Attending Provider Discharge Potential Discharge Needs: Surgical F/U Appt (Orthopedics) Anticipated Barriers to Discharge: None Identified Patient/Family Education Needs: Review discharge instructions, discuss Ask Me Three Transportation: Private vehicle Plan: Anticipate Maria Del Carmen will be discharged home with no new services. She will follow up with her surgeon and plan of care and transport with family. PFSH All Active Problems Cognitive impairment (Acute) Functional neurological symptom disorder with mixed symptoms (Acute) Dysphagia (Acute) Coccygalgia (Acute) Painful total knee replacement, right (Acute) Painful total knee replacement, left (Acute) Degenerative joint disease of right hip (Acute) Hypertension (Chronic) Microscopic hematuria (Chronic) Seizures (Chronic 04/07/14) unspecified type/ EEG 2013 Odynophagia (Chronic 04/11/16) 2016: x2 in 2016/ neg. neck CT and exam : [facility] [place] : extensive workup negative may be neuropathic;suggests neurontin/Lyrica Obstructive sleep apnea (Chronic 02/09/15) good response to CPAP Hypercholesterolemia (Chronic 10/16/12) GERD (gastroesophageal reflux disease) (Chronic 03/02/15) manometry normal 2016: gastroscopy :oesophagitis/no H.Pylori Dr.Danielson Holder 2015: fup ongoing 02-2016 Chronic pain syndrome (Chronic) Constipation (Chronic) Osteopenia (Chronic) dx 2013; last DEXA 2017 and stable Hepatic steatosis (Chronic) Osteoarthritis of carpometacarpal (CMC) joint of right thumb (Chronic) Migraine headache without aura (Chronic) Pes anserinus bursitis of left knee (Chronic) Trochanteric bursitis, right hip (Acute) Medical History History of COVID-19 (~08/2021) Hip pain Cognitive developmental delay Bilateral foot-drop Wears braces bilaterally, but no evidence on exam. Pernicious anemia improved with B12 supplementation Shoulder pain Chronic idiopathic thrombocytopenic purpura (06/07/13) [facility] Hemato. 2012 (fup if plt<40K) Depressive disorder electroconvulsive therapy 1998 [facility]) History of tobacco use quit age 20, 5 packyr history. Pancytopenia [facility] Dr.C. Shah/ no evidence of lymphoproliferative disorder Surgical History Status post repair of ligament of ankle H/O right wrist surgery S/P cataract extraction bilateral Status post ovarian cystectomy EGD - IV Sedation Total knee replacement status (04/27/13) Right TKA - 2008 Left TKA - 2012 Family History Mother No problems noted. Maternal Grandfather No problems noted. Paternal Grandfather No problems noted. Maternal Grandmother No problems noted. Paternal Grandmother No problems noted. 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 Pets and animals: Yes Pets and animals: dog(s) and other Details: ferrets Current gender identity: decline to answer What is your relationship status?: How often do you talk on the phone with friends or family?: three or more times per week How often do you get together with friends or relatives?: three or more times per week How often do you attend islam or denominational services?: decline to answer Do you belong to any clubs or organized social groups?: no Panel score (0-1 are the most socially isolated patients): 2 What type of physical activity do you participate in: decline to answer Duration: decline to answer Frequency: decline to answer Sonya/Congregation: No preference Special sonya needs: No Seatbelt use: always Drive intox or ride w/intox milk pickup driver: No Do you feel safe at home: Yes Do you feel safe in your relationship?: Yes Additional Social history: Gees kalyan [place]. SDOH(Care Management) Screening Will the Patient Participate in the Screening?: Unable to obtain
--- NOTE | 2024-01-30 16:14 | CMPROGNOTE_ITS ---
Date of service: 01/30/24 Time of Service: 16:14 Care Management Progress Note Progress Note Text Progress Note Text: Maria Del Carmen was admitted for a TKR which was performed yesterday by Dr. Corea. She did well postoperatively and will be discharged home later today. New home health PT has been ordered through [facility]. Discharge Potential Discharge Needs: Surgical F/U Appt Anticipated Barriers to Discharge: None Identified Patient/Family Education Needs: Review discharge instructions, discuss Ask Me Three Transportation: Private vehicle Plan: Maria Del Carmen will be discharged home with new home health services for PT. . She will follow up with her PCP and plan of care and transport with family. C SDOH(Care Management) Screening Will the Patient Participate in the Screening?: Unable to obtain
== END 2024-01-30 10:15 | disposition home health service (06) | DRG 488 ==
LOC: PDS 10:35 → MS 15:41
PROVIDERS: Admitting Provider Student in an Organized Health Care Education/Training Program; PCP Family Medicine; Visit Provider Student in an Organized Health Care Education/Training Program
PROC: 0QUF0JZ Supplement Left Patella with Synthetic Substitute, Open Approach (ICD-10-PCS; CPT 27487; principal; 2024-01-29 13:00)
DX: T84.84XA Pain due to internal orthopedic prosthetic devices, implants and grafts, initial encounter (principal); D61.818 Other pancytopenia; D69.3 Immune thrombocytopenic purpura; Z96.652 Presence of left artificial knee joint; D51.0 Vitamin B12 deficiency anemia due to intrinsic factor deficiency; M21.372 Foot drop, left foot; M21.371 Foot drop, right foot; R41.89 Other symptoms and signs involving cognitive functions and awareness; I10 Essential (primary) hypertension; Z79.899 Other long term (current) drug therapy; E78.00 Pure hypercholesterolemia, unspecified; G47.33 Obstructive sleep apnea (adult) (pediatric); K21.9 Gastro-esophageal reflux disease without esophagitis; G40.909 Epilepsy, unspecified, not intractable, without status epilepticus; K76.0 Fatty (change of) liver, not elsewhere classified
CPT/HCPCS: 27486; 97110; 97162; 97530; C1776; J0690; J1100; J2001; J2371; J2401; J2405; J2704; J3490; J8540

== ENCOUNTER 2024-02-10 15:49 | Outpatient (CLI) | payer OTHER, MEDICAID, SELFPAY ==
--- NOTE | 2024-02-10 13:44 | DI.RAD_ITS ---
Exam(s) XR KNEE LT 3V AP,LAT,JENNIFER EXAM: XR KNEE LT 3V AP,LAT,JENNIFER CLINICAL HISTORY: 1ST POST OP S/P PATELLAR REVISION. TECHNIQUE: 2D digital imaging was performed. Three images were obtained. AP, lateral and merchant's views were obtained. COMPARISON: CR XR KNEE LT 3V AP,LAT,JENNIFER from 05/31/2023 FINDINGS: BONES: There are stable post operative changes of a left total knee replacement present. No fracture or dislocation. JOINTS: The orthopedic hardware is in good position. No evidence of hardware loosening. SOFT TISSUE: Dystrophic calcifications are seen in the soft tissues. IMPRESSION: Stable left total knee replacement. DATA REPOSITORY: RADIATION DOSE DELIVERED:
== END 2024-02-10 15:50 | disposition home or self-care (01) ==
LOC: DIORS 15:49
PROVIDERS: PCP Family Medicine; Visit Provider Physician Assistant
DX: Z47.1 Aftercare following joint replacement surgery; Z96.652 Presence of left artificial knee joint
CPT/HCPCS: 73562

== ENCOUNTER → 2024-03-09 13:50 | Outpatient (BNVA) | payer OTHER, MEDICAID, SELFPAY | PROVIDERS: PCP Family Medicine; Visit Provider Student in an Organized Health Care Education/Training Program | DX: Z47.1 Aftercare following joint replacement surgery (principal); Z96.652 Presence of left artificial knee joint ==

== ENCOUNTER 2024-03-31 10:32 | Emergency (ER) | payer OTHER, MEDICAID, SELFPAY ==
[2024-03-31] VITALS (17 sets, daily range): BP systolic 128–155; BP diastolic 55–85; PULSE 97–126; RESP 12–21; TEMP 37.2–38; O2SAT 93–98
--- NOTE | 2024-03-31 11:00 | DI.CT_ITS ---
Exam(s) CT ABDOMEN PELVIS W EXAM: CT ABDOMEN PELVIS W CLINICAL HISTORY: RLQ tenderness. TECHNIQUE: Imaging Protocol: Axial computed tomography images with coronal and sagittal reformatted images were created and reviewed CONTRAST MATERIAL: Intravenous: Omnipaque 350 Contrast volume:100 ml Oral: yes / no COMPARISON: CT ABD/PELVIS WO W CONTRAST from 05/28/2017 FINDINGS: ABDOMEN and PELVIS: Lung Bases: No acute findings. Liver: Normal density. No suspicious mass. Gallbladder and biliary tract: No radiodense calculus. No biliary dilation. Pancreas: Normal density. No abnormal calcifications or inflammatory process. No evidence of mass. Spleen: Normal. Kidneys: Normal size, contour and axis. No radiodense stones. No obstructive uropathy. No suspicious masses seen. Adrenal glands: No masses seen. Vasculature: Abdominal aorta non-dilated. Soft tissues: Unremarkable. Bladder: No gross wall thickening. No calculi.No focal mass. Bowel: No obstruction. No bowel wall thickening. Appendix normal. Large quantity of stool from the cecum through descending colon.. Peritoneal cavity: No ascites. No focal collection. No mesenteric inflammatory response. Bones: Unremarkable for age. Reproductive organs: Unremarkable. Lymph nodes: No pathologically enlarged lymph nodes. IMPRESSION:: No acute abnormality in the abdomen or pelvis. Large quantity of stool extending from cecum through descending colon. RADIATION DOSE DELIVERED: 334.5mGy.cm Total DLP DATA REPOSITORY: All CT scans at this facility are submitted to the National Radiology Data Registry (NRDR) Dose Index Registry (DIR) with the [employer] (ACR). RADIATION OPTIMIZATION: All CT scans at this facility use at least one of these dose optimization te chniques: automated exposure control; mA and/or kV adjustment per patient size (includes targeted exa ms where dose is matched to clinical indication); or iterative reconstruction.
--- NOTE | 2024-03-31 11:11 | ED.GENADUL_ITS ---
Discharge Plan Disposition Patient Disposition: Home Condition: Stable Discharge Details Clinical Impression: COVID-19, Constipation Primary Care Provider: Harriet Foley ED Provider: Jean-Paul Coburn Home Meds and New Rx's Prescriptions: New Paxlovid 300 mg (150 mg x 2)-100 mg tablets,dose pack See Rx Instructions .ROUTE .COMPLEX Qty: 30 0RF Rx Instructions: take TWO 150 mg tablets of nirmatrelvir with ONE 100 mg tablet of ritonavir twice daily for 5 days Continued gabapentin 300 mg capsule 300 mg PO BID Qty: 180 4RF Rx Instructions: take one capsule twice a day amitriptyline 10 mg tablet 10 mg PO QHS Qty: 90 3RF diclofenac sodium [Voltaren] 1 % gel 4 g topical QID PRN (Reason: pain) Qty: 100 3RF Rx Instructions: apply to knee, ankle, foot (DME) Custom Orthopaedic Shoe and Ankle-Foot Support See Rx Instructions .Route .MEDSUPPLY Qty: 1 0RF Rx Instructions: As directed divalproex [Depakote ER] 250 mg tablet extended release 24 hr 500 mg PO HS Qty: 180 3RF cyanocobalamin (vitamin B-12) [Vitamin B-12] 1,000 mcg tablet extended release 1,000 mcg PO DAILY Qty: 90 4RF cholecalciferol (vitamin D3) 50 mcg (2,000 unit) tablet 2,000 unit PO DAILY Qty: 90 4RF (DME) Custom Orthopaedic Shoe and Ankle Foot Orthosis See Rx Instructions .Route .MEDSUPPLY Qty: 1 0RF Rx Instructions: As directed calcium carbonate [Calcium 600] 600 mg calcium (1,500 mg) tablet 600 mg PO BID Qty: 180 4RF hydrochlorothiazide 25 mg tablet 25 mg PO DAILY Qty: 30 3RF omeprazole 20 mg capsule,delayed release(DR/EC) 20 mg PO DAILY Qty: 90 4RF potassium chloride 10 mEq tablet extended release 10 meq PO BID Qty: 60 3RF celecoxib 200 mg capsule 200 mg PO BID PRN (Reason: pain) Qty: 60 1RF Held pravastatin 20 mg tablet 20 mg PO DAILY Qty: 90 4RF Hold Instructions: Resume on 04/05/24. Hold while on Paxlovid Discharge Instructions Instructions: COVID-19 ED, Nirmatrelvir and Ritonavir Additional Instructions: You were seen in the emergency department for your COVID-19 illness, your abdominal pain equates with CT findings of constipation. I have sent you home with a packet of MiraLAX, you may attempt this to relieve your constipation, please take Tylenol and ibuprofen for your COVID-19 illness, you state that you are vaccinated for COVID-19 and I did send a prescription for Paxlovid to your pharmacy. Paxlovid is a medicine that can prevent severe COVID-19 and lower your risk of hospitalization. Please stop your statin medicine while taking Paxlovid. Please return to the emergency department for severe increase in fevers, respiratory distress, chest pain, shortness of breath, severe profound weakness. Referrals: Harriet Foley MD [Primary Care Provider] - [facility] General Date/Time Provider Initiated Documentation: 03/31/24 10:39 . HPI Narrative: 69 year-old female presents to ED today by POV/ambulating with her with a chief complaint of difficulty walking, fatigue with onset noted over the weekend, worse today. Quality described as patient is a very poor historian, states just feels bad, no radiation to chest pain, shortness of breath, cough, states she feels weak, denies nausea/vomiting, patients states she attended PT Saturday, and is now having trouble walking- her PCP has ordered an MRI for chronic memory issues. Severity is described as severe. Palliating factors include nothing specific. Provoking factors include nothing specific. Patient not anticoagulated. Related Data Home Medications ?Medication ?Instructions ?Recorded ?Confirmed diclofenac sodium 1 % topical gel 4 g topical QID PRN pain #100 grams 10/27/20 03/31/24 (Voltaren) Custom Orthopaedic Shoe and #1 ea 02/12/22 03/31/24 Ankle-Foot Support cholecalciferol (vitamin D3) 50 2,000 unit PO DAILY #90 tab-caps 08/22/22 03/31/24 mcg (2,000 unit) tablet gabapentin 300 mg capsule 300 mg PO BID #180 tab-caps 03/01/23 03/31/24 Custom Orthopaedic Shoe and Ankle #1 ea 04/30/23 03/31/24 Foot Orthosis Depakote ER 250 mg tablet,extended 500 mg (2 x 250 mg) PO HS #180 tabs 10/07/23 03/31/24 release (divalproex) calcium carbonate (Calcium 600) 600 mg PO BID #180 tabs 10/17/23 03/31/24 hydrochlorothiazide 25 mg tablet 25 mg PO DAILY hypertension #30 10/25/2307/24 tabs amitriptyline 10 mg tablet 10 mg PO QHS #90 tabs 12/16/23 03/31/24 cyanocobalamin (vitamin B-12) 1,000 mcg PO DAILY #90 tab-caps 12/17/23 03/31/24 1,000 mcg tablet,extended release (Vitamin B-12 ER) omeprazole 20 mg capsule,delayed 20 mg PO DAILY #90 tab-caps 01/24/24 03/31/24 release celecoxib 200 mg capsule 200 mg PO BID PRN pain #60 caps 01/30/24 03/31/24 potassium chloride 10 mEq 10 meq PO BID #60 tabs 01/30/24 03/31/24 tablet,extended release pravastatin 20 mg tablet 20 mg PO DAILY #90 tab-caps 03/16/24 03/31/24 nirmatrelvir 300 mg (150 mg See Rx Instructions PO .COMPLEX 03/31/24 x2)-ritonavir 100 mg tablet,dose #30 dose pk pack (Paxlovid) Previous Rx's ?Medication ?Instructions ?Recorded diclofenac sodium 1 % topical gel 4 g topical QID PRN pain #100 grams 10/27/20 (Voltaren) Custom Orthopaedic Shoe and #1 ea 02/12/22 Ankle-Foot Support cholecalciferol (vitamin D3) 50 2,000 unit PO DAILY #90 tab-caps 08/22/22 mcg (2,000 unit) tablet gabapentin 300 mg capsule 300 mg PO BID #180 tab-caps 03/01/23 Custom Orthopaedic Shoe and Ankle #1 ea 04/30/23 Foot Orthosis Depakote ER 250 mg tablet,extended 500 mg (2 x 250 mg) PO HS #180 tabs 10/07/23 release (divalproex) calcium carbonate (Calcium 600) 600 mg PO BID #180 tabs 10/17/23 hydrochlorothiazide 25 mg tablet 25 mg PO DAILY hypertension #30 10/25/23 tabs amitriptyline 10 mg tablet 10 mg PO QHS #90 tabs 12/16/23 cyanocobalamin (vitamin B-12) 1,000 mcg PO DAILY #90 tab-caps 12/17/23 1,000 mcg tablet,extended release (Vitamin B-12 ER) omeprazole 20 mg capsule,delayed 20 mg PO DAILY #90 tab-caps 01/24/24 release celecoxib 200 mg capsule 200 mg PO BID PRN pain #60 caps 01/30/24 potassium chloride 10 mEq 10 meq PO BID #60 tabs 01/30/24 tablet,extended release pravastatin 20 mg tablet 20 mg PO DAILY #90 tab-caps 03/16/24 nirmatrelvir 300 mg (150 mg See Rx Instructions PO .COMPLEX 03/31/24 x2)-ritonavir 100 mg tablet,dose #30 dose pk pack (Paxlovid) Allergies Allergy/AdvReac Type Severity Reaction Status Date / Time Penicillins AdvReac Intermediate Nausea Verified 03/31/24 10:41 amoxicillin AdvReac Mild GI UPSET Verified 03/31/24 10:41 aspirin AdvReac Mild UPSET Verified 03/31/24 10:41 STOMACH SMOKE Allergy Unknown Other (See Uncoded 03/31/24 10:41 Comment) General Stated Complaint: Orthopedic MÓNICA: 3 Review of Systems All systems reviewed & are unremarkable except as noted in HPI and below Exam Narrative Exam Narrative: GENERAL APPEARANCE: Well-nourished, non-toxic, awake and alert, atraumatic, no acute distress. SKIN: Warm, pink, dry, intact, without rashes/lesions/ulcerations. HEAD: Normocephalic, atraumatic, normal hair distribution for gender/age. EYES: Normal conjunctiva, no exudates on lids/lashes. ENT: Nares patent, no circumoral cyanosis, no facial swelling NECK: Supple, trachea midline, painless cervical ROM. LUNGS/CHEST: Lungs CTA bilaterally-no rhonchi/rales/wheezes diffusely, non- labored respirations, normal A/P diameter, symmetrical expansion, no chest wall deformity HEART (CV/PV): Regular rate and rhythm without murmur, no peripheral edema, no JVD. ABDOMEN: Soft, non-distended, no guarding, mild right lower quadrant tenderness without peritoneal signs. MSK: Normal ROM, no swelling/deformity to bilateral UEs or LEs, moving all extremities without weakness, no cyanosis, spine midline without tenderness, normal curvature. NEURO: Mental Status AAOx4 - alert to person, place, time, events No facial droop, no forehead involvement. Motor: No focal weakness - strength 5/5 in bilateral UEs and LEs, proximal and distal, symmetric. Sensory: sensation intact to light touch globally. Gait normal, patient is weak PSYCH: dysthymic, cooperative, pleasant, appropriate speech Course Vital Signs Vital signs: Vital Signs Temperature 38.0 C H 03/31/24 10:36 Pulse 126 H 03/31/24 10:36 Respiratory Rate 12 03/31/24 10:36 Blood Pressure 137/84 03/31/24 10:36 Pulse Oximetry 94 03/31/24 10:36 Temperature 38.0 C H 03/31/24 10:36 Temperature Source Oral 03/31/24 10:36 Pulse 126 H 03/31/24 10:36 Respiratory Rate 12 03/31/24 10:36 Respiratory Effort Normal, Non-Labored 03/31/24 10:39 Blood Pressure 137/84 03/31/24 10:36 Blood Pressure Position Sitting 03/31/24 10:36 Pulse Oximetry 94 03/31/24 10:36 Oxygen Delivery Method Room Air 03/31/24 10:36 Oxygen Flow Rate 0 03/31/24 10:36 Pain Level 0 03/31/24 10:36 Lab/Test Results Lab/Test Results: 03/31/24 11:02 Blood Blood Culture - Pending 03/31/24 11:02 Blood Blood Culture - Pending Medical Decision Making This dictation utilizes [id number] dictation software and may contain unedite d grammatical errors. 69 year-old female presents to ED today by POV/ambulating with her with a chief complaint of difficulty walking, fatigue with onset noted over the weekend, worse today. Quality described as patient is a very poor historian, states just feels bad, no radiation to chest pain, shortness of breath, cough, states she feels weak, denies nausea/vomiting, patients states she attended PT Saturday, and is now having trouble walking- her PCP has ordered an MRI for chronic memory issues. Severity is described as severe. Palliating factors include nothing specific. Provoking factors include nothing specific. Patients' medical history: Cognitive developmental delay, bilateral foot drop, pernicious anemia, tobacco use, hypertension, unspecified seizures, chronic pain syndrome, constipation. Family and social history: Denies recent travel, son is sick with respiratory illness. Pertinent exam findings / vital signs include right lower quadrant abdominal tenderness without rebound tenderness or Rovsing's, negative Barnett sign, flat affect, less than participatory, mildly febrile on arrival resolved with medication, tachycardia on arrival that resolved. Differential / pathologies of concern include viral syndrome, appendicitis or other acute emergent abdominal pathology, pneumonia, sepsis, biliary tree pathology. Diagnostic studies of: -CBC, CMP, lactate, procalcitonin, lipase, magnesium, COVID/flu/RSV PCR, rapid COVID antigen, XR chest, CT abdomen/pelvis with contrast, blood cultures. -CBC shows chronic leukopenia, no profound anemia, mildly low platelets -Lactate and procalcitonin negative-do not suspect sepsis -CMP shows no actionable abnormality, magnesium is mildly low which would replete with normal p.o. intake -Lipase negative -COVID-positive -CT Shows constipation with no other actionable emergent pathology -XR chest is benign, no pneumonia Interventions of: -IV fluid, Tylenol Toradol, Zofran, outpatient Rx for Paxlovid. ED Course/Assessment/Plan: 69-year-old female presents with generalized fatigue and low-grade fever, she has other family members here who are COVID-positive, she was not hypoxic and her vitals all normalized with simple Tylenol and NSAID intervention, I do suspect she is having COVID-19 acute illness, her abdominal pain could be attributed to the constipation seen on CT abdomen/pelvis, counseled the patient on her need for rest and good hydration and nutrition at home and taking Paxlovid and discontinuing her statin while on this medication, encouraged regular use of cold medicines like Tylenol and ibuprofen and Mucinex. Strict return criteria for any worsening. Findings not consistent with sepsis, perforated viscus or other emergent abdominal pathology, pneumonia, hypoxia. Disposition of COVID-19, constipation. Patient verbalized understanding of the plan and return to ED criteria and engaged in shared decision making. Medical Records Medical records reviewed: Yes I reviewed the patient's medical records. Imaging Data Radiologic Study: Attestation: I personally reviewed and interpreted this imaging study as follows: Imaging: CT Scan Radiologist's impression: EXAM: CT ABDOMEN PELVIS W CLINICAL HISTORY: RLQ tenderness. TECHNIQUE: Imaging Protocol: Axial computed tomography images with coronal and sagittal reformatted images were created and reviewed CONTRAST MATERIAL: Intravenous: Omnipaque 350 Contrast volume:100 ml Oral: yes / no COMPARISON: CT ABD/PELVIS WO W CONTRAST from 05/28/2017 FINDINGS: ABDOMEN and PELVIS: Lung Bases: No acute findings. Liver: Normal density. No suspicious mass. Gallbladder and biliary tract: No radiodense calculus. No biliary dilation. Pancreas: Normal density. No abnormal calcifications or inflammatory process. No evidence of mass. Spleen: Normal. Kidneys: Normal size, contour and axis. No radiodense stones. No obstructive uropathy. No suspicious masses seen. Adrenal glands: No masses seen. Vasculature: Abdominal aorta non-dilated. Soft tissues: Unremarkable. Bladder: No gross wall thickening. No calculi.No focal mass. Bowel: No obstruction. No bowel wall thickening. Appendix normal. Large quantity of stool from the cecum through descending colon.. Peritoneal cavity: No ascites. No focal collection. No mesenteric inflammatory response. Bones: Unremarkable for age. Reproductive organs: Unremarkable. Lymph nodes: No pathologically enlarged lymph nodes. IMPRESSION:: No acute abnormality in the abdomen or pelvis. Large quantity of stool extending from cecum through descending colon. Radiologic Study #2: Attestation: I personally reviewed and interpreted this imaging study as follows: Imaging: X-Ray Radiologist's impression: EXAM: XR CHEST 2V PA LATERAL CLINICAL HISTORY: fever TECHNIQUE: 2D digital imaging was performed. Two views. COMPARISON: CR XR RIBS LT W PA LAT CHEST from 07/29/2019 FINDINGS: HEART: Normal size. Aorta: Not dilated. PULMONARY VASCULATURE: Normal. MEDIASTINUM: Unremarkable. LUNGS: Clear. PLEURAL SPACE: No pleural effusion or pneumothorax. BONE:Unremarkable for age. SOFT TISSUES: Unremarkable. IMPRESSION: No acute abnormality. Lab Data Lab results reviewed: Yes I reviewed the patient's lab results. Labs: 03/31/24 11:20 Blood Blood Culture - Pending 03/31/24 11:20 Blood Blood Culture - Pending Laboratory Tests Range/Units 03/31/24 03/31/24 11:17 11:25 WBC (4.4-10.8) 10^3/uL 3.12 L RBC (3.93-5.22) 10^6/uL 3.78 L Hgb (11.2-15.7) g/dL 11.2 Hct (36.0-46.0) % 33.9 L MCV (80-95) fL 90 MCH (27.0-33.0) pg 29.6 MCHC (32.0-36.0) % 33.0 RDW (11.7-14.6) % 12.8 Plt Count (130-400) 10^3/uL 129 L MPV (8.0-11.0) fL 11.3 H Immature Gran % % 0.3 Neutrophils % % 74.0 Lymphocytes % % 10.9 Monocytes % % 11.9 Eosinophils % % 1.9 Basophils % % 1.0 Nucleated RBC % (0.0-0.3) % 0.0 Absolute Neutrophils (1.2-6.7) 10^3/uL 2.31 Absolute Lymphocytes (1.2-3.4) 10^3/uL 0.34 L Absolute Monocytes (0.1-0.8) 10^3/uL 0.37 Absolute Eosinophils (0.0-0.7) 10^3/uL 0.06 Absolute Basophils (0.0-0.2) 10^3/uL 0.03 VBG Lactate (0.6-1.4) mmol/L 1.1 Sodium (136-145) mmol/L 137 Potassium (3.5-5.1) mmol/L 3.7 Chloride (98-107) mmol/L 99 Carbon Dioxide (21.0-32.0) mmol/L 33.0 H Anion Gap (3-11) mmol/L 5.0 BUN (7-18) mg/dL 13 Creatinine (0.55-1.02) mg/dL 1.0 Est GFR (CKD-EPI 2020) (mL/min/1.73m2) 61.75 Glucose (74-106) mg/dL 89 Calcium (8.5-10.1) mg/dL 9.0 Magnesium (1.8-2.4) mg/dL 1.7 L Total Bilirubin (0.2-1.0) mg/dL 0.33 AST (15-37) U/L 20 ALT (14-59) U/L 15 Alkaline Phosphatase (46-116) U/L 75 Total Protein (6.4-8.2) g/dL 6.7 Albumin (3.4-5.0) g/dL 3.0 L Lipase (16-77) U/L 21 Procalcitonin ng/mL < 0.1 COVID-19 Source Nasopharynx SARS-CoV-2 (PCR) (Negative) Positive A Influenza Type A (PCR) (Negative) Negative Influenza Type B (PCR) (Negative) Negative RSV (PCR) (Negative) Negative Quality:SDOH Health Related Social Needs: No Data to Display PFSH All Active Problems (Updated 03/31/24 @ 12:59 by BENI Moise) Constipation (Acute) COVID-19 (Acute) 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 neck CT and exam : [facility] [place] : extensive workup negative may be neur opathic;suggests neurontin/Lyrica Obstructive sleep apnea (Chronic 02/09/15) good response to CPAP Hypercholesterolemia (Chronic 10/16/12) GERD (gastroesophageal reflux disease) (Chronic 03/02/15) manometry normal 2016: gastroscopy :oesophagitis/no H.Pylori Dr.Danielson Holder 2015: fup ongoing Chronic pain syndrome (Chronic) Constipation (Chronic) Osteopenia (Chronic) dx 2013; last DEXA 2016 and stable Hepatic steatosis (Chronic) Osteoarthritis of carpometacarpal (CMC) joint of right thumb (Chronic) Migraine headache without aura (Chronic) Pes anserinus bursitis of left knee (Chronic) Trochanteric bursitis, right hip (Acute) Medical History History of COVID-19 (~08/2021) Hip pain Cognitive developmental delay Bilateral foot-drop Wears braces bilaterally, but no evidence on exam. Pernicious anemia improved with B12 supplementation Shoulder pain Chronic idiopathic thrombocytopenic purpura (06/07/13) [facility] [place] Hemato. 2013 (fup if plt<40K) Depressive disorder electroconvulsive therapy 1998 [facility] [place]) History of tobacco use quit age 20, 5 packyr history. Pancytopenia [facility] [place] Dr.C. Shah/ no evidence of lymphoproliferative disorder Surgical History Status post repair of ligament of ankle H/O right wrist surgery S/P cataract extraction bilateral Status post ovarian cystectomy EGD - IV Sedation Total knee replacement status (04/27/13) Right TKA - 2008 Left TKA - 2012 Family History Mother No problems noted. Maternal Grandfather No problems noted. Paternal Grandfather No problems noted. Maternal Grandmother No problems noted. Paternal Grandmother No problems noted. 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 Pets and animals: Yes Pets and animals: dog(s) and other Details: ferrets Current gender identity: decline to answer What is your relationship status?: How often do you talk on the phone with friends or family?: three or more times per week How often do you get together with friends or relatives?: three or more times per week How often do you attend christian or muslim services?: decline to answer Do you belong to any clubs or organized social groups?: no Panel score (0-1 are the most socially isolated patients): 2 What type of physical activity do you participate in: decline to answer Duration: decline to answer Frequency: decline to answer Sonya/Cheondoism: No preference Special sonya needs: No Seatbelt use: always Drive intox or ride w/intox dray driver: No Do you feel safe at home: Yes Do you feel safe in your relationship?: Yes Additional Social history: Enjoys [place].
[2024-03-31 11:35] LABS: Lactate 1.1 mmol/L (0.6-1.4)
[2024-03-31 11:38] LABS: Abs Immature Grans 0.01 10^3/uL (0.0-0.06); Absolute Basophil Count 0.03 10^3/uL (0.0-0.2); Absolute Eosinophil Count 0.06 10^3/uL (0.0-0.7); Absolute Lymphocyte Count 0.34 10^3/uL (1.2-3.4); Absolute Monocyte Count 0.37 10^3/uL (0.1-0.8); Absolute Neutrophil Count 2.31 10^3/uL (1.2-6.7); Eosinophils % 1.9 %; HCT 33.9 % (36.0-46.0); HGB 11.2 g/dL (11.2-15.7); Immature Grans % 0.3 %; Lymphocytes % 10.9 %; MCH 29.6 pg (27.0-33.0); MCV 90 fL (80-95); MPV 11.3 fL (8.0-11.0); Monocytes % 11.9 %; Platelet Count 129 10^3/uL (130-400); RBC 3.78 10^6/uL (3.93-5.22); RDW 12.8 % (11.7-14.6); RDW-SD 42.1 fL; WBC 3.12 10^3/uL (4.4-10.8)
[2024-03-31] MEDS: ACETAMINOPHEN 1,000 MG/100 ML BTL 400 MG IVPB (11:45)
[2024-03-31] MEDS: Normal Saline 1,000 ML 1000 ML IV (11:46)
[2024-03-31] MEDS: Ketorolac 15 MG/ML VIAL IVP (11:46)
[2024-03-31 11:57] LABS: ALT 15 U/L (14-59); AST 20 U/L (15-37); Alkaline Phosphatase 75 U/L (46-116); BUN 13 mg/dL (7-18); Bilirubin, Total 0.33 mg/dL (0.2-1.0); Chloride 99 mmol/L (98-107); Estimated GFR 61.75 (mL/min/1.73m2); Glucose 89 mg/dL (74-106); Lipase 21 U/L (16-77); Magnesium 1.7 mg/dL (1.8-2.4); Potassium 3.7 mmol/L (3.5-5.1); Sodium 137 mmol/L (136-145); Total Protein 6.7 g/dL (6.4-8.2)
[2024-03-31] MEDS: Normal Saline - Diluent 50 ML VIAL IJ (12:09)
[2024-03-31] MEDS: Omnipaque 350 MG/ML 100 ML BTL IJ (12:10)
[2024-03-31 12:13] LABS: Influenza A PCR Negative (Negative); Influenza B PCR Negative (Negative); RSV PCR Negative (Negative)
[2024-03-31 12:18] LABS: COVID-19 PCR Positive (Negative); Source Nasopharynx
[2024-03-31 12:28] LABS: Procalcitonin < 0.1 ng/mL
--- NOTE | 2024-03-31 12:35 | DI.RAD_ITS ---
Exam(s) XR CHEST 2V PA LATERAL EXAM: XR CHEST 2V PA LATERAL CLINICAL HISTORY: fever TECHNIQUE: 2D digital imaging was performed. Two views. COMPARISON: CR XR RIBS LT W PA LAT CHEST from 07/29/2019 FINDINGS: HEART: Normal size. Aorta: Not dilated. PULMONARY VASCULATURE: Normal. MEDIASTINUM: Unremarkable. LUNGS: Clear. PLEURAL SPACE: No pleural effusion or pneumothorax. BONE:Unremarkable for age. SOFT TISSUES: Unremarkable. IMPRESSION: No acute abnormality. DATA REPOSITORY: RADIATION DOSE DELIVERED:
== END 2024-03-31 13:31 | disposition home or self-care (01) ==
PROVIDERS: Emergency Provider Physician Assistant; PCP Family Medicine
DX: U07.1 COVID-19 (principal); K59.00 Constipation, unspecified; Z96.652 Presence of left artificial knee joint
CPT/HCPCS: 36415; 80053; 83690; 84145; 87040; 87637; 96365; 96375; 99285; 71046; 74177; 83605; 83735; 85025; J0131; J1885; J3490

== ENCOUNTER 2024-04-16 01:14 | Outpatient (CLI) | payer OTHER, MEDICAID, SELFPAY ==
--- NOTE | 2024-04-16 | DI.MRI_ITS ---
Exam(s) MR BRAIN WO/W EXAM: MR BRAIN WO/W CLINICAL HISTORY: WORSENING COGNITIVE IMPAIRMENT,SEIZURES,FUNCTIONAL NEUROLOGICAL DISORDER TECHNIQUE: Multiplanar multisequence MRI of the brain was performed. CONTRAST MATERIAL: IV Contrast: 14 mL of Dotarem contrast administered. COMPARISON: No exams were available for comparison FINDINGS: VENTRICLES AND EXTRA AXIAL SPACES: Normal in size and morphology for the patient's age. HEMORRHAGE: None. CEREBRAL PARENCHYMA: No focus of restricted diffusion to suggest acute infarct. No space-occupying le katie identified. There are few foci of hyperintense signal seen in the white matter on the FLAIR and T2 weighted images most consistent with chronic microvascular ischemic disease. MIDLINE SHIFT: None. BRAINSTEM/CEREBELLUM: Normal. CALVARIUM: Normal. ENHANCEMENT: No suspicious enhancement identified. VISUALIZED PARANASAL SINUSES/MASTOIDS: Clear. [place] OF BACH: Normal flow void. PITUITARY GLAND: Unremarkable. OTHER FINDINGS: IMPRESSION: 1. No evidence of an acute infarct or intracranial mass/enhancing lesion. 2. Few foci of hyperintense signal seen in the white matter most consistent with chronic microvascula r ischemic change. DATA REPOSITORY:
[2024-04-16] MEDS: Normal Saline Flush 10 ML SYR IVP (10:10)
[2024-04-16] MEDS: Gadoterate meglumine 20 ML SYRINGE 14 ML IVP (10:11)
== END 2024-04-16 01:34 ==
PROVIDERS: PCP Family Medicine; Visit Provider Family Medicine
DX: I67.82 Cerebral ischemia (principal)
CPT/HCPCS: 70553

== ENCOUNTER → 2024-04-20 14:00 | Outpatient (BNVA) | payer OTHER, MEDICAID, SELFPAY | PROVIDERS: PCP Family Medicine; Referring Provider Family Medicine; Visit Provider Student in an Organized Health Care Education/Training Program | DX: Z47.1 Aftercare following joint replacement surgery (principal); Z96.652 Presence of left artificial knee joint | CPT/HCPCS: 99024 ==

== ENCOUNTER → 2024-04-22 12:14 | Outpatient (BNVA) | payer OTHER, MEDICAID, SELFPAY | PROVIDERS: PCP Family Medicine; Referring Provider Family Medicine; Visit Provider Psychiatry & Neurology Neurology | DX: G43.009 Migraine without aura, not intractable, without status migrainosus (principal); R56.9 Unspecified convulsions; R29.898 Other symptoms and signs involving the musculoskeletal system; F44.7 Conversion disorder with mixed symptom presentation | CPT/HCPCS: 99213 ==

== ENCOUNTER 2024-05-25 02:35 | Outpatient (CLI) | payer OTHER, MEDICAID, SELFPAY ==
[2024-05-25 12:40] LABS: HCT 34.5 % (36.0-46.0); HGB 11.3 g/dL (11.2-15.7); MCHC 32.8 % (32.0-36.0); MCV 89 fL (80-95); MPV 11.5 fL (8.0-11.0); Platelet Count 135 10^3/uL (130-400); RBC 3.89 10^6/uL (3.93-5.22); RDW 12.7 % (11.7-14.6); RDW-SD 41.6 fL; WBC 4.51 10^3/uL (4.4-10.8)
[2024-05-25 13:30] LABS: Anion Gap 3.6 mmol/L (3-11); BUN 15 mg/dL (7-18); CO2 37.4 mmol/L (21.0-32.0); Calcium 9.2 mg/dL (8.5-10.1); Chloride 94 mmol/L (98-107); Estimated GFR 61.75 (mL/min/1.73m2); Glucose 84 mg/dL (74-106); Potassium 3.3 mmol/L (3.5-5.1); Sodium 135 mmol/L (136-145)
== END 2024-05-25 02:36 | disposition home or self-care (01) ==
LOC: LBO 02:35
PROVIDERS: PCP Family Medicine; Visit Provider Student in an Organized Health Care Education/Training Program
DX: Z01.818 Encounter for other preprocedural examination (principal); T84.84XD Pain due to internal orthopedic prosthetic devices, implants and grafts, subsequent encounter; Z96.651 Presence of right artificial knee joint
CPT/HCPCS: 36415; 80048; 85027; 99213

== ENCOUNTER 2024-05-25 15:52 | Outpatient (CLI) | payer OTHER, MEDICAID, SELFPAY ==
--- NOTE | 2024-05-25 13:45 | DI.RAD_ITS ---
Exam(s) XR KNEE RT 3V AP,LAT,JENNIFER EXAM: XR KNEE RT 3V AP,LAT,JENNIFER CLINICAL HISTORY: RIGHT KNEE PAIN. TECHNIQUE: 2D digital imaging was performed. COMPARISON: CR XR KNEE LT 3V AP,LAT,JENNIFER from 02/10/2024 FINDINGS: 3 views No evidence of fracture or obvious loosening of the prosthesis. However, on the merchant's view the lateral aspect of the femoral component of the prosthesis appears to be associated with smooth erosio n of the lateral aspect of the patella. Possibly significant. There does not appear to be an obviou s joint effusion. IMPRESSION: Findings in the lateral aspect of the patellofemoral compartment as above. DATA REPOSITORY: RADIATION DOSE DELIVERED:
== END 2024-05-25 15:53 | disposition home or self-care (01) ==
LOC: DIORS 15:52
PROVIDERS: PCP Family Medicine; Visit Provider Student in an Organized Health Care Education/Training Program
DX: T84.84XD Pain due to internal orthopedic prosthetic devices, implants and grafts, subsequent encounter (principal); Z96.651 Presence of right artificial knee joint; Z47.1 Aftercare following joint replacement surgery
CPT/HCPCS: 73562

== ENCOUNTER 2024-06-10 09:10 | Inpatient (IN) | payer OTHER, MEDICAID, SELFPAY ==
[2024-06-10] VITALS (20 sets, daily range): BP systolic 96–134; BP diastolic 47–88; PULSE 58–78; RESP 12–20; TEMP 35.6–36.4; O2SAT 89–100; BMI 25.1
[2024-06-10] MEDS: Gabapentin 300 MG CAP PO ×2 (09:58→19:59)
[2024-06-10] MEDS: Acetaminophen 500 MG TAB 1000 MG PO ×3 (09:58→19:59)
[2024-06-10] MEDS: Celecoxib 200 MG CAP 400 MG PO (09:58)
[2024-06-10] MEDS: Normal Saline 500 ML 30 ML IV (10:08)
--- NOTE | 2024-06-10 10:45 | ANES.PREOP_ITS ---
General Info Date of Service Date Performed: 06/10/24 Height: 5 ft 4 in Weight: 66.5 kg Body Mass Index (BMI): 25.1 Surgical Procedure: Operation Date: 06/10/24 12:25 Proposed Procedure Side Surgeon p Knee Patella Revision- Attune Right Dom Corea MD Meds Allergies and Home Medications Allergies Allergy/AdvReac Type Severity Reaction Status Date / Time Penicillins AdvReac Intermediate Nausea Verified 06/10/24 09:43 amoxicillin AdvReac Mild GI UPSET Verified 06/10/24 09:43 aspirin AdvReac Mild UPSET Verified 06/10/24 09:43 STOMACH SMOKE Allergy Unknown Other (See Uncoded 06/10/24 09:43 Comment) Home Medication ?Medication ?Instructions ?Recorded diclofenac sodium 1 % topical gel 4 g topical QID PRN pain #100 grams 10/27/20 (Voltaren) Custom Orthopaedic Shoe and #1 ea 02/12/22 Ankle-Foot Support cholecalciferol (vitamin D3) 50 2,000 unit PO DAILY #90 tab-caps 08/22/22 mcg (2,000 unit) tablet Custom Orthopaedic Shoe and Ankle #1 ea 04/30/23 Foot Orthosis Depakote ER 250 mg tablet,extended 500 mg (2 x 250 mg) PO HS #180 tabs 10/07/23 release (divalproex) calcium carbonate (Calcium 600) 600 mg PO BID #180 tabs 10/17/23 hydrochlorothiazide 25 mg tablet 25 mg PO DAILY hypertension #30 10/25/23 tabs amitriptyline 10 mg tablet 10 mg PO QHS #90 tabs 12/16/23 cyanocobalamin (vitamin B-12) 1,000 mcg PO DAILY #90 tab-caps 12/17/23 1,000 mcg tablet,extended release (Vitamin B-12 ER) omeprazole 20 mg capsule,delayed 20 mg PO DAILY #90 tab-caps 01/24/24 release celecoxib 200 mg capsule 200 mg PO BID PRN pain #60 caps 01/30/24 potassium chloride 10 mEq 10 meq PO BID #60 tabs 01/30/24 tablet,extended release pravastatin 20 mg tablet 20 mg PO DAILY #90 tab-caps 03/16/24 polyethylene glycol 3350 17 17 g PO BID PRN constipation #510 04/07/24 gram/dose oral powder (Miralax) grams sennosides 8.6 mg tablet (senna) 17.2 mg (2 x 8.6 mg) PO QHS #180 04/07/24 tabs gabapentin 300 mg capsule 300 mg PO BID #180 tab-caps 05/04/24 Current Visit Medications: Current Medications Generic Name Dose Route Start Last Admin Trade Name Freq PRN Reason Stop Dose Admin Acetaminophen 1,000 mg 06/10/24 06:00 06/10/24 09:58 Acetaminophen 500 Mg Tab PO 06/10/24 23:59 1,000 mg PREOP FLACO Administration Acetaminophen 1,000 mg 06/10/24 14:00 Acetaminophen 500 Mg Tab PO TID FLACO Amitriptyline HCl 10 mg 06/10/24 10:00 Amitriptyline 10 Mg Tab PO QHS FLACO Aspirin 81 mg 06/10/24 20:00 Aspirin E.C. 81 Mg Tabec PO BID FLACO Calcium Carbonate 0.6 gm 06/10/24 20:00 Calcium Carbonate 1.5 Gm Tab PO BID FLACO Celecoxib 400 mg 06/10/24 06:00 06/10/24 09:58 Celecoxib 200 Mg Cap PO 06/10/24 23:59 400 mg PREOP FLACO Administration Celecoxib 200 mg 06/10/24 09:54 Celecoxib 200 Mg Cap PO BID PRN pain Celecoxib 200 mg 06/10/24 20:00 Celecoxib 200 Mg Cap PO BID [facility] Dexamethasone 4 mg 06/11/24 08:30 Dexamethasone 4 Mg Tab PO 06/12/24 08:31 DAILY [facility] Divalproex Sodium 500 mg 06/10/24 20:00 Divalproex Sodium 250 Mg Tab.Er.24h PO HS FLACO Docusate Sodium 100 mg 06/10/24 09:55 Docusate Sodium 100 Mg Cap PO BID PRN PRN Constipation Gabapentin 300 mg 06/10/24 06:00 06/10/24 09:58 Gabapentin 300 Mg Cap PO 06/10/24 23:59 300 mg PREOP FLACO Administration Gabapentin 300 mg 06/10/24 20:00 Gabapentin 300 Mg Cap PO BID [facility] Hydrochlorothiazide 25 mg 06/11/24 08:30 Hydrochlorothiazide 25 Mg Tab PO DAILY [facility] Cefazolin Sodium/Dextrose 2 gm in 50 mls @ 100 mls/hr 06/10/24 06:00 Ancef Duplex IVPB 06/10/24 23:59 PREOP FLACO Tranexamic Acid/Sodium Chloride 1,000 mg in 100 mls @ 600 mls/hr 06/10/24 06:00 IVPB 06/10/24 23:59 PREOP FLACO Sodium Chloride 500 mls @ 30 mls/hr 06/10/24 09:30 06/10/24 10:08 Saline 500ml Bag IV 30 mls/hr INFUSION FLACO Administration Cefazolin Sodium/Dextrose 1 gm in 50 mls @ 100 mls/hr 06/10/24 10:00 Ancef Duplex IVPB 06/11/24 02:29 Q8H FLACO IV Miscellaneous Supplies 1 each 06/10/24 06:00 Iv Access IV 06/10/24 23:59 DIRECTED [facility] Non-Formulary Medication 2,000 unit 06/11/24 08:30 Cholecalciferol (Vitamin D3) PO DAILY [facility] Non-Formulary Medication 1,000 mcg 06/11/24 08:30 Cyanocobalamin (Vitamin B-12) [Vitamin B-12] PO DAILY [facility] Omeprazole 20 mg 06/11/24 08:30 Omeprazole 20 Mg Capcr PO DAILY [facility] Ondansetron HCl 4 mg 06/10/24 09:55 Ondansetron 4 Mg/2 Ml Vial IVP Q6H PRN PRN Nausea Oxycodone HCl 0 mg 06/10/24 09:55 Oxycodone 5 Mg Tab PO Q3H PRN PRN Pain Polyethylene Glycol 17 gm 06/10/24 09:55 Polyethylene Glycol 3350 17 Gm Packet PO BID PRN PRN Constipation Sennosides tab 06/10/24 10:00 Senna Tab PO QHS FLACO Sodium Chloride 0 ml 06/10/24 06:00 Normal Saline Flush 10 Ml Syr IV 06/10/24 23:59 PRN PRN Sodium Chloride 0 ml 06/10/24 06:00 Normal Saline 10 Ml Vial IJ 06/10/24 23:59 DIRECTED PRN Sterile Water 0 ml 06/10/24 06:00 Water,Injection,Sterile 10 Ml Vial IJ 06/10/24 23:59 DIRECTED PRN PFSH Active Problems Active Problems: Problem Status Onset Code COVID-19 Acute U07.1 Cognitive impairment Acute R41.89 Functional neurological symptom disorder with mixed symptoms Acute F44.7 Dysphagia Acute R13.10 Coccygalgia Acute M53.3 Painful total knee replacement, right Acute T84.84XA, Z96.651 Painful total knee replacement, left Acute T84.84XA, Z96.652 Degenerative joint disease of right hip Acute M16.11 Hypertension Chronic I10 Microscopic hematuria Chronic R31.29 Seizures Chronic 04/07/14 R56.9 Odynophagia Chronic 04/11/16 R13.10 Obstructive sleep apnea Chronic 02/09/15 G47.33 Hypercholesterolemia Chronic 10/16/12 E78.00 GERD (gastroesophageal reflux disease) Chronic 03/02/15 K21.9 Chronic pain syndrome Chronic G89.4 Constipation Chronic K59.00 Osteopenia Chronic M85.80 Hepatic steatosis Chronic K76.0 Osteoarthritis of carpometacarpal (CMC) joint of right thumb Chronic M18.11 Migraine headache without aura Chronic G43.009 Pes anserinus bursitis of left knee Chronic M70.52 Trochanteric bursitis, right hip Acute M70.61 Medical History Medical History History of COVID-19 (~08/2021) Hip pain Cognitive developmental delay Bilateral foot-drop Wears braces bilaterally, but no evidence on exam. Pernicious anemia improved with B12 supplementation Shoulder pain Chronic idiopathic thrombocytopenic purpura (06/07/13) [facility] Hemato. 2012 (fup if plt<40K) Depressive disorder electroconvulsive therapy 1998 [facility]) History of tobacco use quit age 20, 5 packyr history. Pancytopenia [facility] Dr.C. Shah/ no evidence of lymphoproliferative disorder Surgical History Surgical History S/P revision of total knee Left patellar revision DOS: 01/29/24 Status post repair of ligament of ankle H/O right wrist surgery S/P cataract extraction bilateral Status post ovarian cystectomy EGD - IV Sedation Total knee replacement status (04/27/13) Right TKA - 2008 Left TKA - 2012 Tobacco Smoking/Tobacco Use Status: Former Tobacco Use Passive smoking exposure: Yes Alcohol Alcohol Intake: current Alcohol intake frequency: holidays/special occasions only Substance Use Substance use: Never Substance use type: does not use Vital Signs and Lab Results Vital Signs Most Recent Vital Signs in EMR: Most Recent Vital Signs Temp Pulse Resp BP Pulse Ox 35.8 C L 78 18 134/60 98 06/10/24 09:30 06/10/24 09:30 06/10/24 09:30 06/10/24 09:30 06/10/24 09:30 Lab Results Blood Type / Crossmatch: No Data to Display Complete Blood Count: White Blood Count 4.51 10^3/uL (4.4-10.8) 05/25/24 12:25 Red Blood Count 3.89 10^6/uL (3.93-5.22) L 05/25/24 12:25 Hemoglobin 11.3 g/dL (11.2-15.7) 05/25/24 12:25 Hematocrit 34.5 % (36.0-46.0) L 05/25/24 12: Platelet Count 135 10^3/uL (130-400) 05/25/24 12:25 Complete Metabolic Panel: Sodium 135 mmol/L (136-145) L 05/25/24 12:25 Potassium 3.3 mmol/L (3.5-5.1) L 05/25/24 12:25 Chloride 94 mmol/L (98-107) L 05/25/24 12:25 Carbon Dioxide 37.4 mmol/L (21.0-32.0) H 05/25/24 12:25 BUN 15 mg/dL (7-18) 05/25/24 12:25 Creatinine 1.0 mg/dL (0.55-1.02) 05/25/24 12:25 Est GFR (CKD-EPI 2020) 61.75 (mL/min/1.73m2) 05/25/24 12:25 Calcium 9.2 mg/dL (8.5-10.1) 05/25/24 12:25 Glucose 84 mg/dL (74-106) 05/25/24 12:25 Liver Function Panel: No Data to Display Coagulation Panel: No Data to Display Cardiac Panel: No Data to Display Arterial Blood Gas: No Data to Display Venous Blood Gas: No Data to Display Pancreas Panel: No Data to Display Thyroid Panel: No Data to Display Infectious Disease: No Data to Display Blood Cultures: No Data to Display Toxicology Panel: No Data to Display Anesthesia Assessment and Plan Anesthesia History Personal History: No History of Anesthesia Complications Family History: No Family History of Anesthesia Complications Exercise Tolerance Exercise Tolerance: Metabolic Equivalents>4 Pertinent Negatives Pertinent Negatives: No Symptoms of GERD, No Major Cardiovascular Symptoms or Complaints and No Major Pulmonary Symptoms or Complaints Cardiac & Pulmonary Exam Cardiac Exam: Normal S1/S2 Heart Sounds Pulmonary Exam: Clear Bilateral Breath Sounds Implantable Cardiac Device Does patient have a Pacemaker or an ICD?: No Airway Exam Known Difficult Airway: No Mallampati Class: 2 Mouth Opening: Narrow (< 3cm) Thyromental Distance: Greater than 3 cm Neck Range of Motion: Full ROM Neck Circumference: Normal Teeth Condition: Edentulous ASA Classification ASA Score: ASA 3 Emergency Case?: No NPO Status NPO Status: NPO Clears >2 hours, Solids >8 hours Anesthesia Plan Resuscitation Status: Full Code Anesthesia Technique: Spinal Anesthesia Airway Planned: Natural Airway Monitors Used: Standard Monitors Preoperative Comments:: Post op rescue adductor canal block PRN, patient did well with spinal and no block for left patellar revision 01/29/24.
[2024-06-10] MEDS: ceFAZolin 2 GM/50 ML BAG IVPB (12:16)
--- NOTE | 2024-06-10 12:18 | ROE_ITS ---
Operative Note Operative Note PRE-OP DIAGNOSIS: Patellofemoral Pain after Knee Replacement - RIGHT PROCEDURE: Synovectomy and Revision of Patellar Component - RIGHT Knee SURGEON: Dom Corea [employer] ACCOUNT REPRESENTATIVE: [place] ANESTHESIA TYPE: Spinal Refer to Anesthesia Record ESTIMATED BLOOD LOSS: 25 COMPLICATIONS: None Patient was transported to: PACU Implants: Depuy Attune Patella Button - 38mm Indications: Maria Del Carmen is a 69-year-old female who has had worsening pain about the anterior aspect of the right knee. She has a history of bilateral knee replacements. She had similar symptoms in the left side and underwent a revision of her patellar component with excellent results. She has similar findings on the right side and once this went to be revised as well. She denies any other acute changes to her health. Findings: There was wear over the lateral edge of the patellar button with wear into the patella as well adjacent to the patellar button. The patella was recut and a new patellar button placed. Procedure Description: Maria Del Carmen was greeted in the preoperative holding area where the correct side was identified and marked. The consent was reviewed with the patient and signed. The history and physical was updated. All questions were answered. Preoperative mediacations were administered: Acetaminophen 1000mg, Celebrex 400mg, and Gabapentin 300mg. An adductor canal block was then administered by the anesthesia team in the DSU. Maria Del Carmen was taken back to the operating room. A spinal anesthestic was a dministered. The patient was placed into the supine position on the operating room table. Posts were placed for positioning during the procedure. All bony prominences were well padded. Prophylactic antibiotics in the form of Cefazolin were administered. The left leg was then prepped with Chloraprep and draped in a standard fashion with impervious stockinette. A second prep with Chloraprep was performed prior to application of Iodine impregnated skin protection. A timeout to confirm correct identity, side and site, procedure, allergies, anesthesia, and medical concerns was performed. With the knee in some flexion, a midline incision was made overlying the knee utilizing the previous incision. Full thickness skin flaps were raised once the extensor mechanism was encountered. These were raised medially and laterally. There is no defect in the extensor mechanism and the muscle was appropriately positioned and healthy. With the knee in flexion, a medial parapatellar arthrotomy was made. There was some effusion noted about the knee. There is no signs of infection. The patella was everted which showed the lateral aspect of the patellar button was worn and the lateral remnant patellar bone was scalloped, articulating with the metal trochlea. A synovectomy was performed around the patella and the prepatellar space. The tissue was elevated from around the patellar button. Using a freehand technique with a Selin clamp on the patellar ligament as well as the quadriceps tendon, I resected the patella underneath the pre-existing patellar button. This was measured still to be 17 mm thick and therefore I resected this again with a thickness of 14 mm back to fresh bone. A small amount of remnant cement was removed. A size 38 mm patella fit the patella bone well. This was held in position and the lug holes were drilled. On the back table 1 batch of high viscosity cement was prepared. This was done under vacuum assistance. Once this was ready it was then applied to the cut surface of the patella after it was irrigated and dried. The patellar button was manually pushed into place and held with a clamp. This was held for 15 minutes while the cement cured. During this time the knee soft tissues and deep tissues and periosteum was injected with a mixture of ropivacaine, epinephrine, clonidine, and ketorolac. The knee was irrigated with a Betadine solution where it stayed for at least 3 minutes. This was then irrigated out. The clamp was removed. The patella was tracking well. Any remnant bone superolaterally was resected with a rongeur such that there was no prominent bone. With the knee in 90 degrees of flexion I then performed the closure. The arthrotomy was closed with interrupted #2 FiberWire sutures. This was then reinforced with a running #2 STRATAFIX suture. The deep tissues were then closed with a 0 and 2-0 Vicryl. The skin was closed with a running 3-0 Monocryl, reinforced with skin glue. A Mepilex silver dressing was applied along with the foot to thigh Elbert wrap. A CryoCuff was applied. Maria Del Carmen was transferred to the hospital bed without difficulty an suffering no apparent complication. Maria Del Carmen will be weightbearing as tolerated. She has no formal restrictions. We will start physical therapy. Anticoagulation will be aspirin 81 mg twice daily. Date of Procedure: 06/10/24
[2024-06-10] MEDS: TRANEXAMIC ACID/SOD. CHL. 1,000 MG/100 ML BAG 600 MG IVPB (12:30)
--- NOTE | 2024-06-10 14:50 | W.ANESPOSTOP ---
Postoperative Evaluation Date, Time and Location Date Performed: 06/10/24 Time Performed: 14:00 Patient Location: PACU Vital Signs Most Recent Imported Vital Signs: Most Recent Vital Signs Temp Pulse Resp BP Pulse Ox 36.4 C L 63 14 96/49 L 98 06/10/24 14:22 06/10/24 14:00 06/10/24 14:01 06/10/24 14:00 06/10/24 14:01 Pain Score Most Recent Pain Score: Most Recent Pain Score Pain Level 0 06/10/24 14:22 Assessment Mental Status: Awake (Alert & Oriented to Patient Baseline) Airway and Respiratory Function: Patent airway with normal (patient baseline) respiratory exam Cardiovascular Function: Hemodynamically Stable Hydration Status: Adequately Hydrated Nausea & Vomiting: No Nausea or Vomiting Pain: Pt. Denies Any Pain Peripheral Nerve Block: Patient did not receive a nerve block
[2024-06-10] MEDS: Normal Saline Flush 10 ML SYR IV (15:14)
--- NOTE | 2024-06-10 16:49 | W.PC.ACHO ---
Registration Status: Primary Language: Preferred Language: Medical / Surgical History (Last Reviewed 06/10/24 @ 09:39 by Libby Mandujano RN) History of COVID-19 (~08/2021) Hip pain Cognitive developmental delay Bilateral foot-drop Pernicious anemia Shoulder pain Chronic idiopathic thrombocytopenic purpura (06/07/13) Depressive disorder History of tobacco use Pancytopenia (Last Reviewed 06/10/24 @ 09:39 by Libby Mandujano RN) S/P revision of total knee Status post repair of ligament of ankle H/O right wrist surgery S/P cataract extraction Status post ovarian cystectomy EGD - IV Sedation Total knee replacement status (04/27/13) Most Recent Vital Signs Temperature 36.4 C L 06/10/24 15:40 Temperature Source Temporal Artery Scan 06/10/24 15:40 Pulse 60 06/10/24 15:40 Pulse Rhythm Regular 06/10/24 15:54 Pulse 65 06/10/24 14:01 Respiratory Rate 16 06/10/24 15:40 Respiratory Effort Normal, Non-Labored 06/10/24 15:54 Respiratory Depth Shallow 06/10/24 15:54 Respiratory Pattern Apnea 06/10/24 15:54 Blood Pressure 105/88 06/10/24 15:40 Blood Pressure Mean 64 06/10/24 14:00 Pulse Oximetry 99 06/10/24 15:40 Respiratory End-tidal CO2 25 06/10/24 14:01 Oxygen Delivery Method Room Air 06/10/24 15:40 Oxygen Flow Rate 0 06/10/24 15:40 Pain Level 0 06/10/24 15:40 Allergies Penicillins Adverse Reaction (Intermediate, Verified 06/10/24 09:43) Nausea amoxicillin Adverse Reaction (Mild, Verified 06/10/24 09:43) GI UPSET aspirin Adverse Reaction (Mild, Verified 06/10/24 09:43) UPSET STOMACH SMOKE Allergy (Unknown, Uncoded 06/10/24 09:43) Other (See Comment) CIGARETTE , WOOD STOVE SMOKE Active Medications Generic Name Dose Route Start Last Admin Trade Name Freq PRN Reason Stop Dose Admin Acetaminophen 1,000 mg 06/10/24 14:00 06/10/24 14:59 Acetaminophen 500 Mg Tab PO 1,000 mg TID FLACO Administration Sodium Chloride 500 mls @ 100 mls/hr 06/10/24 09:30 06/10/24 14:11 Saline 500ml Bag IV 30 mls/hr INFUSION FLACO Infusion Sodium Chloride 0 ml 06/10/24 06:00 06/10/24 15:14 Normal Saline Flush 10 Ml Syr IV 06/10/24 23:59 10 ml PRN PRN Administration IV IV Catheter Type [Right Peripheral IV Forearm] IV Catheter Gauge [Right 20 Forearm] Diet Orders Category Date Time Status Regular/Normal [DIET] Nutrition 06/10/24 Lunch Active Intake and Output - 24 Hour Total 04/21/24 08:52 thru 06/10/24 14:22 Intake Total 500 Output Total 25 Balance 475 Weight 66.5 kg Intake: IV 500 Output: Estimated Blood Loss 25 Other: Emesis Description None Falls Risk Assessment History of Falls Previous History 06/10/24 15:54 Contributing Factors Confusion,Impairments 06/10/24 15:54 Ambulatory Aids Uses ambulatory device + 06/10/24 15:54 Tubes/Lines With any additional score 06/10/24 15:54 Gait Evaluation W/any additional score 06/10/24 15:54 Cognition Cognitive impairment 06/10/24 15:54 Fall Total Score 106 06/10/24 15:54 Level of Risk Maximum Risk 06/10/24 15:54 v v v v v v v v v Sending and/or Receiving Nurses: Please use comment section below to note any information pertinent to the patient hand-off not included above. Information / Comments: Report in PACU from Nona Gutiérrez Report received from:
[2024-06-10] MEDS: Normal Saline 500 ML 100 ML IV (18:30)
[2024-06-10] MEDS: Senna TAB 2 TAB PO (19:59)
[2024-06-10] MEDS: Celecoxib 200 MG CAP PO (19:59)
[2024-06-10] MEDS: Divalproex Sodium 250 MG TAB.ER.24H 500 MG PO (19:59)
[2024-06-10] MEDS: Aspirin E.C. 81 MG TABEC PO (19:59)
[2024-06-10] MEDS: Calcium Carbonate 1.5 GM TAB PO (19:59)
[2024-06-10] MEDS: Amitriptyline 10 MG TAB PO (20:00)
[2024-06-10] MEDS: ceFAZolin 1 GM/50 ML BAG IVPB (20:00)
[2024-06-11 00:35] VITALS: BP 110/62; PULSE 70; RESP 14; TEMP 36.4; O2SAT 95
[2024-06-11] MEDS: ceFAZolin 1 GM/50 ML BAG IVPB (03:13)
[2024-06-11 03:15] VITALS: BP 109/64; PULSE 75; RESP 14; TEMP 36.3; O2SAT 96
[2024-06-11 07:41] VITALS: BP 127/66; PULSE 75; RESP 20; TEMP 36.2; O2SAT 99
[2024-06-11] MEDS: Omeprazole 20 MG CAPCR PO (08:24)
[2024-06-11] MEDS: hydroCHLOROthiazide 25 MG TAB PO (08:24)
[2024-06-11] MEDS: Celecoxib 200 MG CAP PO (08:24)
[2024-06-11] MEDS: Cholecalciferol (Vitamin D3) 1,000 UNIT TAB 2000 UNITS PO (08:24)
[2024-06-11] MEDS: Aspirin E.C. 81 MG TABEC PO (08:24)
[2024-06-11] MEDS: Cyanocobalamin 500 MCG TAB 1000 MCG PO (08:24)
[2024-06-11] MEDS: Gabapentin 300 MG CAP PO (08:24)
[2024-06-11] MEDS: Acetaminophen 500 MG TAB 1000 MG PO (08:25)
[2024-06-11] MEDS: Dexamethasone 4 MG TAB PO (08:25)
[2024-06-11] MEDS: Calcium Carbonate 1.5 GM TAB PO (08:25)
--- NOTE | 2024-06-11 09:15 | PT.INIE ---
PT Notes Physical Therapy Day Surgery Initial Evaluation Date: 06/11/2024 Referring Doctor: Dr. Corea PT Orders: PT CONSULT: S/p Ortho surgery Precautions: Activity as tolerated, WBAT RLE,TEDs x 2 weeks, seizure precautions, bilateral lower extremity braces on when out of bed for safety Patient Profile/Admitting Diagnosis: Maria Del Carmen is a 69-year-old female presented for elective revision of right total knee arthroplasty with patellar component replaced on 06/10/[address] Corea under general anesthesia. Postop uncomplicated PMHX: COVID-19 (Acute) S/P revision of total knee (Acute) Left patellar revision DOS: 01/29/24Cognitive impairment (Acute) Functional neurological symptom disorder with mixed symptoms (Acute) Dysphagia (Acute) Coccygalgia (Acute) Painful total knee replacement, right (Acute) Painful total knee replacement, left (Acute) Degenerative joint disease of right hip (Acute) Hypertension (Chronic) Microscopic hematuria (Chronic) Seizures (Chronic 04/07/14) unspecified type/ EEG 2013 Odynophagia (Chronic 04/11/16) 2016: x2 in 2016/ neg. neck CT and exam : [facility] [place] : extensive workup negative may be neuropathic;suggests neurontin/Lyrica Obstructive sleep apnea (Chronic 02/09/15) good response to CPAP Hypercholesterolemia (Chronic 10/16/12) GERD (gastroesophageal reflux disease) (Chronic 03/02/15) manometry normal 2016: gastroscopy :oesophagitis/no H.Pylori Dr.Danielson Holder 2015: fup ongoing Chronic pain syndrome (Chronic) Constipation (Chronic) Osteopenia (Chronic) dx 2013; last DEXA 2016 and stableHepatic steatosis (Chronic) Osteoarthritis of carpometacarpal (CMC) joint of right thumb (Chronic) Migraine headache without aura (Chronic) Pes anserinus bursitis of left knee (Chronic) Trochanteric bursitis, right hip (Acute) Medical History History of COVID-19 (~08/2021) Hip pain Cognitive developmental delay Bilateral foot-drop Wears braces bilaterally, but no evidence on exam.Pernicious anemia improved with B12 supplementationShoulder pain Chronic idiopathic thrombocytopenic purpura (06/07/13) [facility] [place] Hemato. 2013 (fup if plt<40K) Depressive disorder electroconvulsive therapy 1998 [facility] [place]) History of tobacco use quit age 20, [address] [facility] [place] Dr.C. Shah/ no evidence of lymphoproliferative disorder Surgical History Status post repair of ligament of ankle H/O right wrist surgery S/P cataract extraction bilateralStatus post ovarian cystectomy EGD - IV Sedation Total knee replacement status (04/27/13) Right TKA - 2008 Left TKA - 2012 Social History/Home Situation: Patient resides with her and adult son two-story home with 3 steps to enter. She reports she has a flight of stairs to her bedroom and the only bathroom within the house. Stairs have 1 railing. She reports she is independent with ADLs including donning and doffing braces. provides meals and assist as needed Equipment Owned/DME: Multiple FWW, SBQC Subjective: Patient reports she is waiting for her to come pick her up so she can go home. She denies pain and states she has been through this before. Objective: General Observation: Patient presents seated in chair with Cryo/Cuff to right knee eating breakfast with bilateral double metal upright( DMU) braces on Mental Status: Alert and oriented, cooperative, motivated to return home agreeable to participate Pain: Patient denies pain right knee ROM: Right Upper Extremity: Within functional limits Left Upper Extremity: Within functional limits Right Lower Extremity: Hip within normal limits, knee 0 -108 degrees, ankle dorsiflexion to neutral Left Lower Extremity: Within normal limits except ankle dorsiflexion to neutral Strength: Right Upper Extremity: 5/5 Left Upper Extremity: 5/5 Right Lower Extremity: Patient demonstrates straight leg raise without quad lag strong quad set with minimal use of glutes and hamstring for compensation Left Lower Extremity: Grossly 4/5 except ankle Sensation: Intact Bed Mobility/Transfers: Supine to sit [independent Sit to stand independent Stand to sit independent Bed to chair supervision with B DMU braces FWW and/or SBQC Patient able to don and doff bilateral DMU braces independently Gait: Ambulate with FWW and BLE double metal upright (DMU) braces supervision 150 feet reciprocal pattern. Patient demonstrates knee flexion through swing phase . -Ambulate with SBQC with B DMU braces with SBA 50 feet. Patient requires cues to utilize cane to reduce excessive lateral weight shift. Stairs: 2 steps x 5 sets with rail and SBQC and B DMU standby assist with cues for sequencing for descending stairs. Balance: Static Sitting: Normal Dynamic Sitting: Normal Static Standing: Good + Dynamic Standing: Good Special Tests: Mobility Limitations Standardized Measure [facility] 6 clicks Basic Mobility Inpatient Short Form: Raw Score: 23 CMS Score: 11.20% % Informed Consent/Education: Patient instructed in purpose of PT consult. Packet containing TKA exercise protocol has been given to patient. Education and training on initial set of exercises that can be done at home have been completed with patient. Treatment: 82432: BLE seated: LAQ, marching x 10 reps; Supine: Quad sets x 1 minute with 3-second hold, SLR in shortened range and heel slides x 10 reps Assessment: Patient is a 69-year-old female presenting with cognitive impairment, impulsivity placing her at increased risk for falls. Patient presents with clinical signs and symptoms consistent with current/admitting diagnoses that have resulted to mobility limitations, gait instability, generalized weakness, and impairment of motor control as demonstrated by the following impairment level findings: 1. Decreased strength to right knee major muscle groups 2. Impaired standing balance 3. Limitation of joint range of motion in right knee 4. Impaired functional activity tolerance Impairments are contributing to the following functional limitations: 1. Inability to safely ambulate without assistive device 2. Increase completion time for mobility ADL performance 3. Increased fall risk 4. Decline in ability to perform stairs independently Patient is assessed as a moderate complexity based on the following: History: 69-year-old female with impairment level findings, functional limitations, and past medical history as indicated above Examination: Demonstrable impairment in strength, balance, and mobility level with underlying impairments and functional limitations as documented above Presentation: Stable Decision Making: Moderate Goals: NA Plan of Care/Treatment Plan: PT evaluation and 1-2 treatment session only for functional mobility training using recommended AD and for HEP instruction. DISCHARGE RECOMMENDATIONS: Home with outpatient PT as scheduled and HEP TREATMENT CODE/TIME: 72385, [id number] Thank you for the opportunity to participate in the care of this patient. Lacy Shoemaker, PT [place] [facility] Please sign an return this page within 30 days if you agree with the above POC. Thank you! Physician Signature Date [facility]
--- NOTE | 2024-06-11 09:35 | W.PM.DS.N ---
Date of service: 06/11/24 Time of Service: 09:35 DS: Diagnosis Discharge Diagnosis (1) Painful total knee replacement, right: Status: Acute Discharge Plan Disposition Patient Disposition: Home W/Home Health Services Condition: Improving Discharge Details Reason For Visit: Painful R Knee Replacement Admit Date/Time: 06/10/24 09:10 Admit Provider: Dom Corea Attending Provider: Dom Corea Primary Care Provider: Harriet Foley Hospital Course Hospital Course: Maria Del Carmen was admitted to the medical/surgical floor following the procedure. The surgery was tolerated well without any notable medical, surgical, or anesthetic complications. Mobilization began postoperatively. She was voiding spontaneously. Vitals were stable. Physical therapy worked with the patient and was cleared for discharge home. No acute medical issues. Pain was controlled on oral regimen. Home Meds and New Rx's Prescriptions: New tramadol 50 mg tablet 50 mg PO Q4H PRNQty: 18 0RF aspirin 81 mg tablet,delayed release (DR/EC) 81 mg PO BID Qty: 60 0RF Continued amitriptyline 10 mg tablet 10 mg PO QHS Qty: 90 3RF diclofenac sodium [Voltaren] 1 % gel 4 g topical QID PRN (Reason: pain) Qty: 100 3RF Rx Instructions: apply to knee, ankle, foot (DME) Custom Orthopaedic Shoe and Ankle-Foot Support See Rx Instructions .Route .MEDSUPPLY Qty: 1 0RF Rx Instructions: As directed divalproex [Depakote ER] 250 mg tablet extended release 24 hr 500 mg PO HS Qty: 180 3RF cyanocobalamin (vitamin B-12) [Vitamin B-12] 1,000 mcg tablet extended release 1,000 mcg PO DAILY Qty: 90 4RF polyethylene glycol 3350 [Miralax] 17 gram/dose powder 17 g PO BID PRN (Reason: constipation) Qty: 510 0RF sennosides [senna] 8.6 mg tablet 17.2 mg PO QHS Qty: 180 3RF cholecalciferol (vitamin D3) 50 mcg (2,000 unit) tablet 2,000 unit PO DAILY Qty: 90 4RF (DME) Custom Orthopaedic Shoe and Ankle Foot Orthosis See Rx Instructions .Route .MEDSUPPLY Qty: 1 0RF Rx Instructions: As directed calcium carbonate [Calcium 600] 600 mg calcium (1,500 mg) tablet 600 mg PO BID Qty: 180 4RF hydrochlorothiazide 25 mg tablet 25 mg PO DAILY Qty: 30 3RF omeprazole 20 mg capsule,delayed release(DR/EC) 20 mg PO DAILY Qty: 90 4RF potassium chloride 10 mEq tablet extended release 10 meq PO BID Qty: 60 3RF pravastatin 20 mg tablet 20 mg PO DAILY Qty: 90 4RF gabapentin 300 mg capsule 300 mg PO BID Qty: 180 4RF Rx Instructions: take one capsule twice a day celecoxib 200 mg capsule 200 mg PO BID PRN (Reason: pain) Qty: 60 1RF Discharge Instructions Additional Instructions: Knee Discharge Instructions Activity: The most important activity is to walk and to work on gentle motion (both flexion and extension). You should try to take short walks a few times a day. It is important that when resting you work on keeping the knee straight. Work on activating your quadriceps as much as you can. Avoid putting a pillow behind the knee as this will encourage flexion. Work on range of motion exercises as provided by Physical Therapy. - You have been ordered home health physical therapy to assist with your gait and strength. - You should wear the ROBERT hose on both legs for 2 weeks. You may remove these at night. You may also use any compression sock in place of the ROBERT hose. Dressing: Remove the Elbert wrap by 2 days after your surgery and put on the ROBERT stocking given to you from the hospital. Keep the surgical dressing (underneath the ELBERT wrap) in place for at least one week. After the first week it may be removed and replaced with light gauze and tape or nothing. The wound and dressing may get wet after 3 days but avoid soaking the dressing or otherwise it will need to be changed. Many people prefer covering the dressing with cling wrap (saran wrap) to minimize it from getting soaked. If it gets wet, just pat dry. If it starts to peel off then it will need to be changed. Medications: - You should take Tylenol and anti-inflammatory Celebrex as your primary pain control medications. If the Celebrex is too expensive or not covered, please call the office for another alternative (Advil/Ibuprofen or Naproxen/Aleve) - You have been prescribed a stronger pain medication Tramadol for breakthrough pain, take as needed as prescribed. - You will continue your stomach acid reduction agent Omeprazole to help reduce stomach acid and reflux. - You will continue your Gabapentin to help with restlessness and nerve pain. - You will be taking Aspirin 81mg twice a day for DVT prevention unless instructed otherwise. - If you have constipation you should take Colace or Miralax (both [id number]). It takes most people 3-4 days to have a bowel movement. Follow-up: 2 weeks If you have any acute concerns or questions, please do not hesitate to contact the office at [phone]. You may contact Dr. Corea with any questions after hours through the hospital at [phone] or on his cell phone at [phone]. 1. Encounter Date and Reason I certify that Maria Del Carmen Rodriguez was seen by Dom Corea MD on 06/11/24 and that I had a [id number] encounter with this patient that meets the physician face to face encounter requirements. 2. Clinical Findings Supporting Skilled Need and Homebound Status I certify that home health services are medically necessary, include either intermittent penitentiary and/or physical/speech therapy, and that this patient is homebound in that absences from the home require considerable and taxing effort and are infrequent or of short duration, or are attributable to the need to receive medical care. [X] (a) Attached documentation from encounter provides clinical findings supporting skilled need and homebound status (including what assistance patient requires to leave the home). The encounter with the patient was in whole, or in part, for the following medical condition, which is the primary reason for home health care: Revision R TKR patella Usp: Physical Therapy:?Maria Del Carmen would benefit from home health physical therapy and Occupational Therapy. Maria Del Carmen is recovering from revision of the patellar component about her right knee with revision of her quadriceps and arthrotomy repair. She has no formal restrictions. She may weight-bear as tolerated. She should work on active knee extension along with gentle range of motion and gait training. She has notable weakness and gait dysfunction following surgery and due to pain leading up to the time of surgery. Speech Therapy: Homebound:?Maria Del Carmen is homebound due to notable weakness and gait dysfunction following knee surgery. 3. Certification and Authentication I certify that I composed the above information based on my clinical judgement relating to this patient's medical condition and, if applicable, clinical findings communicated to me by the NPP or inpatient physician who performed the Home Health Referral. All further orders will be obtained through Dr. Corea Activity:: Activity as Tolerated Equipment/Supplies:: No Equipment Needed Diet:: As Tolerated Discharge Orders Discharge Orders: Discharge Order (Routine); Ordered 06/11/24 Ordered By: Dom Corea DS: Summary Time Spent with Patient providing and/or coordinating discharge services: Less than 30 minutes Status at Discharge Functional status at discharge: uses cane/walker Overall status at discharge: patient is progressing back to baseline Mental Status: mental status grossly normal Speech and Movement: speech and movement normal Mood: congruent mood Affect: normal affect Quality:SDOH Health Related Social Needs: Health related social needs transportation insecurity(Z59.82) Health related social needs details Insurance and home therapy coverage questions Health related social needs details: Insurance and home therapy coverage questions Exam Narrative Exam Narrative: Sitting up. NAD. AAOx3 RLE dressing c/d/i. +SLR, +ADF/EHL/FHL/APF SILT DP/SP/Tib. +DP/PT Psych Mental Status: mental status grossly normal Speech and Movement: speech and movement normal Mood: congruent mood Affect: normal affect DS: Data Vitals/I&O Vitals and I&O: Vital Signs Temperature 36.2 C L 06/11/24 07:41 Temperature Source Temporal Artery Scan 06/11/24 07:41 Pulse 75 06/11/24 07:41 Pulse Rhythm Regular 06/10/24 15:54 Pulse 65 06/10/24 14:01 Respiratory Rate 20 06/11/24 07:41 Respiratory Effort Normal, Non-Labored 06/10/24 15:54 Respiratory Depth Shallow 06/10/24 15:54 Respiratory Pattern Apnea 06/10/24 15:54 Blood Pressure 127/66 06/11/24 07:41 Blood Pressure Mean 64 06/10/24 14:00 Pulse Oximetry 99 06/11/24 07:41 Respiratory End-tidal CO2 06/10/24 14:01 Oxygen Delivery Method Room Air 06/11/24 07:41 Oxygen Flow Rate 0 06/11/24 07:41 Pain Level 0 06/11/24 08:25 Intake & Output 06/10/24 06/10/24 06/11/24 11:59 23:59 11:59 Intake Total 1560 / 1560 Output Total 1075 / 1075 300 / 300 Balance 485 / 485 -300 / -300 Weight 66.5 kg Intake: IV 1200 / 1200 Oral 360 / 360 Output: Urine 1050 / 1050 300 / 300 Estimated Blood Loss Other: Urine Color Pale Straw Urine Appearance Clear Clear Urine Odor Normal None Comment inc x 1 Emesis Description None PFSH All Active Problems COVID-19 (Acute) Cognitive impairment (Acute) Functional neurological symptom disorder with mixed symptoms (Acute) Dysphagia (Acute) Coccygalgia (Acute) Painful total knee replacement, right (Acute) Painful total knee replacement, left (Acute) Degenerative joint disease of right hip (Acute) Hypertension (Chronic) Microscopic hematuria (Chronic) Seizures (Chronic 04/07/14) unspecified type/ EEG 2013 Odynophagia (Chronic 04/11/16) 2016: x2 in 2016/ neg. neck CT [place] [facility] [place] negative may be neuropathic;suggests neurontin/Lyrica Obstructive sleep apnea (Chronic 02/09/15) good response to CPAP Hypercholesterolemia (Chronic 10/16/12) GERD (gastroesophageal reflux disease) (Chronic 03/02/15) manometry normal 2016: gastroscopy :oesophagitis/no H.Pylori Dr.Danielson Holder 2015: fup ongoing Chronic pain syndrome (Chronic) Constipation (Chronic) Osteopenia (Chronic) dx 2013; last DEXA 2017 and stable Hepatic steatosis (Chronic) Osteoarthritis of carpometacarpal (CMC) joint of right thumb (Chronic) Migraine headache without aura (Chronic) Pes anserinus bursitis of left knee (Chronic) Trochanteric bursitis, right hip (Acute) Medical History History of COVID-19 (~08/2021) Hip pain Cognitive developmental delay Bilateral foot-drop Wears braces bilaterally, but no evidence on exam. Pernicious anemia improved with B12 supplementation Shoulder pain Chronic idiopathic thrombocytopenic purpura (06/07/13) [facility] [place] 2012 (fup if plt<40K) Depressive disorder electroconvulsive therapy 1998 [facility] [place] History of tobacco use quit age 20, 5 packyr history. Pancytop[place] [facility] [place].C. Shah/ no evidence of lymphoproliferative disorder Surgical History S/P revision of total knee Left patellar revision DOS: 01/29/24 Status post repair of ligament of ankle H/O right wrist surgery S/P cataract extraction bilateral Status post ovarian cystectomy EGD - IV Sedation Total knee replacement status (04/27/13) Right TKA - 2008 Left TKA - 2012 Family History Mother No problems noted. Maternal Grandfather No problems noted. Paternal Grandfather No problems noted. Maternal Grandmother No problems noted. Paternal Grandmother No problems noted. 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 Pets and animals: Yes Pets and animals: dog(s) and other Details: ferrets Current gender identity: decline to answer What is your relationship status?: How often do you talk on the phone with friends or family?: three or more times per week How often do you get together with friends or relatives?: three or more times per week How often do you attend baptist or religion services?: decline to answer Do you belong to any clubs or organized social groups?: no Panel score (0-1 are the most socially isolated patients): 2 What type of physical activity do you participate in: decline to answer Duration: decline to answer Frequency: decline to answer Sonya/Pentecostal: No preference Special sonya needs: No Seatbelt use: always Drive intox or ride w/intox bellman driver: No Do you feel safe at home: Yes Do you feel safe in your relationship?: Yes Additional Social history: [place]. Time Spent with Patient Time Spent with Patient: <45 minutes Time was spent: preparing to see the patient(eg.review tests), indepentently interpreting results and counseling the patient
--- NOTE | 2024-06-11 10:05 | W.PM.DS.N ---
Date of service: 06/11/24 Time of Service: 09:40 DS: Diagnosis Discharge Diagnosis (1) Painful total knee replacement, right: Status: Acute Discharge Plan Disposition Patient Disposition: Home W/Home Health Services Condition: Improving Discharge Details Reason For Visit: Painful R Knee Replacement Admit Date/Time: 06/10/24 09:10 Admit Provider: Dom Corea Attending Provider: Dom Corea Primary Care Provider: Harriet Foley Hospital Course Hospital Course: Maria Del Carmen was admitted to the medical/surgical floor following the procedure. The surgery was tolerated well without any notable medical, surgical, or anesthetic complications. Mobilization began postoperatively. She was voiding spontaneously. Vitals were stable. Physical therapy worked with the patient and was cleared for discharge home. No acute medical issues. Pain was controlled on oral regimen. Home Meds and New Rx's Prescriptions: New tramadol 50 mg tablet 50 mg PO Q4H PRNQty: 18 0RF aspirin 81 mg tablet,delayed release (DR/EC) 81 mg PO BID Qty: 60 0RF Continued amitriptyline 10 mg tablet 10 mg PO QHS Qty: 90 3RF diclofenac sodium [Voltaren] 1 % gel 4 g topical QID PRN (Reason: pain) Qty: 100 3RF Rx Instructions: apply to knee, ankle, foot (DME) Custom Orthopaedic Shoe and Ankle-Foot Support See Rx Instructions .Route .MEDSUPPLY Qty: 1 0RF Rx Instructions: As directed divalproex [Depakote ER] 250 mg tablet extended release 24 hr 500 mg PO HS Qty: 180 3RF cyanocobalamin (vitamin B-12) [Vitamin B-12] 1,000 mcg tablet extended release 1,000 mcg PO DAILY Qty: 90 4RF polyethylene glycol 3350 [Miralax] 17 gram/dose powder 17 g PO BID PRN (Reason: constipation) Qty: 510 0RF sennosides [senna] 8.6 mg tablet 17.2 mg PO QHS Qty: 180 3RF cholecalciferol (vitamin D3) 50 mcg (2,000 unit) tablet 2,000 unit PO DAILY Qty: 90 4RF (DME) Custom Orthopaedic Shoe and Ankle Foot Orthosis See Rx Instructions .Route .MEDSUPPLY Qty: 1 0RF Rx Instructions: As directed calcium carbonate [Calcium 600] 600 mg calcium (1,500 mg) tablet 600 mg PO BID Qty: 180 4RF hydrochlorothiazide 25 mg tablet 25 mg PO DAILY Qty: 30 3RF omeprazole 20 mg capsule,delayed release(DR/EC) 20 mg PO DAILY Qty: 90 4RF potassium chloride 10 mEq tablet extended release 10 meq PO BID Qty: 60 3RF pravastatin 20 mg tablet 20 mg PO DAILY Qty: 90 4RF gabapentin 300 mg capsule 300 mg PO BID Qty: 180 4RF Rx Instructions: take one capsule twice a day celecoxib 200 mg capsule 200 mg PO BID PRN (Reason: pain) Qty: 60 1RF Discharge Instructions Additional Instructions: Knee Discharge Instructions Activity: The most important activity is to walk and to work on gentle motion (both flexion and extension). You should try to take short walks a few times a day. It is important that when resting you work on keeping the knee straight. Work on activating your quadriceps as much as you can. Avoid putting a pillow behind the knee as this will encourage flexion. Work on range of motion exercises as provided by Physical Therapy. - You will start outpatient PT in 2 weeks. - You should wear the ROBERT hose on both legs for 2 weeks. You may remove these at night. You may also use any compression sock in place of the ROBERT hose. Dressing: Remove the Elbert wrap by 2 days after your surgery and put on the ROBERT stocking given to you from the hospital. Keep the surgical dressing (underneath the ELBERT wrap) in place for at least one week. After the first week it may be removed and replaced with light gauze and tape or nothing. The wound and dressing may get wet after 3 days but avoid soaking the dressing or otherwise it will need to be changed. Many people prefer covering the dressing with cling wrap (saran wrap) to minimize it from getting soaked. If it gets wet, just pat dry. If it starts to peel off then it will need to be changed. Medications: - You should take Tylenol and anti-inflammatory Celebrex as your primary pain control medications. If the Celebrex is too expensive or not covered, please call the office for another alternative (Advil/Ibuprofen or Naproxen/Aleve) - You have been prescribed a stronger pain medication Tramadol for breakthrough pain, take as needed as prescribed. - You will continue your stomach acid reduction agent Omeprazole to help reduce stomach acid and reflux. - You will continue your Gabapentin to help with restlessness and nerve pain. - You will be taking Aspirin 81mg twice a day for DVT prevention unless instructed otherwise. - If you have constipation you should take Colace or Miralax (both [id number]). It takes most people 3-4 days to have a bowel movement. Follow-up: 2 weeks If you have any acute concerns or questions, please do not hesitate to contact the office at [phone]. You may contact Dr. Corea with any questions after hours through the hospital at [phone] or on his cell phone at [phone]. Stand Alone Forms: Nursing Discharge Form Referrals: Dom Corea MD [ [facility] STAFF PHYSICIAN] - 06/25/24 1:15 am Activity:: Activity as Tolerated Equipment/Supplies:: No Equipment Needed Diet:: As Tolerated Discharge Orders Discharge Orders: Discharge Order (Routine); Ordered 06/11/24 Ordered By: Dom Corea DS: Summary Time Spent with Patient providing and/or coordinating discharge services: Less than 30 minutes Status at Discharge Functional status at discharge: uses cane/walker Overall status at discharge: patient is progressing back to baseline Mental Status: mental status grossly normal Speech and Movement: speech and movement normal Mood: congruent mood Affect: normal affect Quality:SDOH Health Related Social Needs: Health related social needs transportation insecurity(Z59.82) Health related social needs details Insurance and home therapy coverage questions Health related social needs details: Insurance and home therapy coverage questions Exam Narrative Exam Narrative: Sitting up in the chair. NAD. AAOx3. RLE dressing c/d/i. +ADF/APF/EHL/FHL/SLR. SILT DP/SP/Tib +PT/DP Psych Mental Status: mental status grossly normal Speech and Movement: speech and movement normal Mood: congruent mood Affect: normal affect DS: Data Vitals/I&O Vitals and I&O: Vital Signs Temperature 36.2 C L 06/11/24 07:41 Temperature Source Temporal Artery Scan 06/11/24 07:41 Pulse 75 06/11/24 07:41 Pulse Rhythm Regular 06/10/24 15:54 Pulse 65 06/10/24 14:01 Respiratory Rate 20 06/11/24 07:41 Respiratory Effort Normal, Non-Labored 06/10/24 15:54 Respiratory Depth Shallow 06/10/24 15:54 Respiratory Pattern Apnea 06/10/24 15:54 Blood Pressure 127/66 06/11/24 07:41 Blood Pressure Mean 64 06/10/24 14:00 Pulse Oximetry 99 06/11/24 07:41 Respiratory End-tidal CO2 25 06/10/24 14:01 Oxygen Delivery Method Room Air 06/11/24 07:41 Oxygen Flow Rate 0 06/11/24 07:41 Pain Level 0 06/11/24 08:25 Intake & Output 06/10/24 06/10/24 06/11/24 11:59 23:59 11:59 Intake Total 1560 / 1560 Output Total 1075 / 1075 300 / 300 Balance 485 / 485 -300 / -300 Weight 66.5 kg Intake: IV 1200 / 1200 Oral 360 / 360 Output: Urine 1050 / 1050 300 / 300 Estimated Blood Loss Other: Urine Color Pale Straw Urine Appearance Clear Clear Urine Odor Normal None Comment inc x 1 Emesis Description None PFSH All Active Problems COVID-19 (Acute) Cognitive impairment (Acute) Functional neurological symptom disorder with mixed symptoms (Acute) Dysphagia (Acute) Coccygalgia (Acute) Painful total knee replacement, right (Acute) Painful total knee replacement, left (Acute) Degenerative joint disease of right hip (Acute) Hypertension (Chronic) Microscopic hematuria (Chronic) Seizures (Chronic 04/07/14) unspecified type/ EEG 2013 Odynophagia (Chronic 04/11/16) 2016: x2 in 2016/ neg. neck [place] [facility] [place] negative may be neuropathic;suggests neurontin/Lyrica Obstructive sleep apnea (Chronic 02/09/15) good response to CPAP Hypercholesterolemia (Chronic 10/16/12) GERD (gastroesophageal reflux disease) (Chronic 03/02/15) manometry normal 2016: gastroscopy :oesophagitis/no H.Pylori Dr.Danielson Holder 2015: fup ongoing Chronic pain syndrome (Chronic) Constipation (Chronic) Osteopenia (Chronic) dx 2013; last DEXA 2017 and stable Hepatic steatosis (Chronic) Osteoarthritis of carpometacarpal (CMC) joint of right thumb (Chronic) Migraine headache without aura (Chronic) Pes anserinus bursitis of left knee (Chronic) Trochanteric bursitis, right hip (Acute) Medical History History of COVID-19 (~08/2021) Hip pain Cognitive developmental delay Bilateral foot-drop Wears braces bilaterally, but no evidence on exam. Pernicious anemia improved with B12 supplementation Shoulder pain Chronic idiopathic thrombocytopenic purpura (06/07/13) [facility] [place] (fup if plt<40K) Depressive disorder electroconvulsive therapy 1998 [facility] [place] History of tobacco use quit age 20, 5 packyr history. Pancytopenia [facility] [place]/ no evidence of lymphoproliferative disorder Surgical History S/P revision of total knee Left patellar revision DOS: 01/29/24 Status post repair of ligament of ankle H/O right wrist surgery S/P cataract extraction bilateral Status post ovarian cystectomy EGD - IV Sedation Total knee replacement status (04/27/13) Right TKA - 2008 Left TKA - 2012 Family History Mother No problems noted. Maternal Grandfather No problems noted. Paternal Grandfather No problems noted. Maternal Grandmother No problems noted. Paternal Grandmother No problems noted. 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 Pets and animals: Yes Pets and animals: dog(s) and other Details: ferrets Current gender identity: decline to answer What is your relationship status?: How often do you talk on the phone with friends or family?: three or more times per week How often do you get together with friends or relatives?: three or more times per week How often do you attend spiritism or christianity services?: decline to answer Do you belong to any clubs or organized social groups?: no Panel score (0-1 are the most socially isolated patients): 2 What type of physical activity do you participate in: decline to answer Duration: decline to answer Frequency: decline to answer Sonya/Yarsani: No preference Special sonya needs: No Seatbelt use: always Drive intox or ride w/intox ambulette driver: No Do you feel safe at home: Yes Do you feel safe in your relationship?: Yes Additional Social history: Gees [place]alyan [place]. Time Spent with Patient Time Spent with Patient: <45 minutes Time was spent: preparing to see the patient(eg.review tests), obtaining and/or reviewing separately [facility], indepentently interpreting results and counseling the patient
--- NOTE | 2024-06-11 10:17 | CMDISCH_ITS ---
Date of service: 06/11/24 Time of Service: 10:17 LACE Index Scoring Tool Questions: Length of Stay (in days): 1 Was the patient admitted via the E.D.?: No E.D. Visits: 1 Answers: Total Score: 2 Risk of Readmission: Low Risk Care Management Discharge Plan Reason for Hospitalization: Right Knee Replacement Discharge Plan: Discharge home via private vehicle with family. Outpatient follow up with Ortho, as discussed. No new services are ordered prior to discharge. Patient/Family Education Needs: Review discharge instruction, limitations and plan to follow up with ortho. Discuss ask me three. SDOH Health Related Social Needs: Health related social needs transportation insecurity( Z59.82) Health related social needs details Insurance and home therapy coverage questions Health related social needs: transportation insecurity(Z59.82) Health related social needs details: Insurance and home therapy coverage questions
== END 2024-06-11 11:05 | disposition home or self-care (01) | DRG 464 ==
LOC: PDS 09:25 → MS 14:44
PROVIDERS: Admitting Provider Student in an Organized Health Care Education/Training Program; PCP Family Medicine; Visit Provider Student in an Organized Health Care Education/Training Program
PROC: 0SPC0NZ Removal of Patellofemoral Synthetic Substitute from Right Knee Joint, Open Approach (ICD-10-PCS; CPT 27487; principal; 2024-06-10 12:15)
DX: T84.84XA Pain due to internal orthopedic prosthetic devices, implants and grafts, initial encounter (principal); D61.818 Other pancytopenia; D69.3 Immune thrombocytopenic purpura; R41.89 Other symptoms and signs involving cognitive functions and awareness; I10 Essential (primary) hypertension; G47.33 Obstructive sleep apnea (adult) (pediatric); E78.00 Pure hypercholesterolemia, unspecified; K21.9 Gastro-esophageal reflux disease without esophagitis; G89.4 Chronic pain syndrome; K59.00 Constipation, unspecified; K76.0 Fatty (change of) liver, not elsewhere classified; G43.009 Migraine without aura, not intractable, without status migrainosus; M85.80 Other specified disorders of bone density and structure, unspecified site; D51.0 Vitamin B12 deficiency anemia due to intrinsic factor deficiency; F32.A Depression, unspecified; Z96.653 Presence of artificial knee joint, bilateral
CPT/HCPCS: 27486; 97110; 97162; C1776; J0690; J1100; J2250; J2371; J2401; J2405; J2704; J8540

== ENCOUNTER 2024-06-25 15:39 | Outpatient (CLI) | payer OTHER, MEDICAID, SELFPAY ==
--- NOTE | 2024-06-25 13:30 | DI.RAD_ITS ---
Exam(s) XR KNEE RT 2V AP,LAT EXAM: XR KNEE RT 2V AP,LAT INDICATION: F/U REVISION SURGERY. COMPARISON: CR XR KNEE RT 3V AP,LAT,JENNIFER from 05/25/2024 TECHNIQUE: 2D digital imaging was performed. Two views. FINDINGS: The alignment of the total knee prosthesis is unchanged. No abnormal surrounding bony lucencies. No visible joint effusion. DATA REPOSITORY: RADIATION DOSE DELIVERED:
== END 2024-06-25 15:40 | disposition home or self-care (01) ==
LOC: DIORS 15:39
PROVIDERS: PCP Family Medicine; Referring Provider Family Medicine; Visit Provider Physician Assistant
DX: T84.84XD Pain due to internal orthopedic prosthetic devices, implants and grafts, subsequent encounter (principal); Z96.651 Presence of right artificial knee joint; Z47.1 Aftercare following joint replacement surgery
CPT/HCPCS: 99024; 73560

== ENCOUNTER 2024-07-23 13:57 | Outpatient (CLI) | payer MEDICARE, MEDICAID, SELFPAY ==
--- NOTE | 2024-07-23 13:00 | DI.RAD_ITS ---
Exam(s) XR KNEE RT 3V AP,LAT,JENNIFER EXAM: XR KNEE RT 3V AP,LAT,JENNIFER CLINICAL HISTORY: knee pain. TECHNIQUE: 2D digital imaging was performed. Three views. COMPARISON: CR KNEES BILAT AP LATERALS from 05/19/2014 CR XR KNEE RT 3V AP,LAT,JENNIFER from 05/31/2023 CR XR KNEE RT 3V AP,LAT,JENNIFER from 05/25/2024 CR XR KNEE RT 2V AP,LAT from 06/25/2024 FINDINGS: BONES: No acute fracture is present. No bony destructive lesion is seen. JOINTS: Stable alignment of total knee prosthesis. The lateral border of the patella, lateral to the poly ethylene, is again seen to articulate with the lateral femoral condyle. No joint effusion is s een. SOFT TISSUE: Normal. IMPRESSION: Stable alignment of right total knee prosthesis. DATA REPOSITORY: RADIATION DOSE DELIVERED:
--- NOTE | 2024-07-23 13:00 | DI.RAD_ITS ---
Exam(s) XR KNEE LT 3V AP,LAT,JENNIFER EXAM: XR KNEE LT 3V AP,LAT,JENNIFER CLINICAL HISTORY: knee pain. TECHNIQUE: 2D digital imaging was performed. Three views. COMPARISON: CR XR KNEE LT 3V AP,LAT,JENNIFER from 02/10/2024 CR XR KNEE RT 3V AP,LAT,JENNIFER from 05/25/2024 CR XR KNEE RT 2V AP,LAT from 06/25/2024 CR XR KNEE RT 3V AP,LAT,JENNIFER from 07/23/2024 FINDINGS: BONES: No acute fracture is present. No bony destructive lesion is seen. JOINTS: Stable alignment of total knee prosthesis. The knee is normally aligned. No joint effusion i s seen. SOFT TISSUE: Normal. IMPRESSION: Stable appearance of total knee prosthesis. DATA REPOSITORY: RADIATION DOSE DELIVERED:
== END 2024-07-23 13:58 | disposition home or self-care (01) ==
LOC: DIORS 15:56
PROVIDERS: PCP Family Medicine; Referring Provider Family Medicine; Visit Provider Physician Assistant
DX: T84.84XD Pain due to internal orthopedic prosthetic devices, implants and grafts, subsequent encounter (principal); Z96.652 Presence of left artificial knee joint; Z47.1 Aftercare following joint replacement surgery; Z96.651 Presence of right artificial knee joint
CPT/HCPCS: 73562; 99024

== ENCOUNTER → 2024-10-14 13:14 | Outpatient (BNVA) | payer MEDICAID, SELFPAY | PROVIDERS: PCP Family Medicine; Referring Provider Family Medicine; Visit Provider Psychiatry & Neurology Neurology | DX: M85.89 Other specified disorders of bone density and structure, multiple sites (principal); I10 Essential (primary) hypertension; R56.9 Unspecified convulsions; G43.009 Migraine without aura, not intractable, without status migrainosus; R29.898 Other symptoms and signs involving the musculoskeletal system; F44.7 Conversion disorder with mixed symptom presentation; R13.10 Dysphagia, unspecified | CPT/HCPCS: 99214 ==

== ENCOUNTER → 2024-11-16 09:20 | Outpatient (BNVA) | payer MEDICARE, MEDICAID, SELFPAY | PROVIDERS: PCP Family Medicine; Referring Provider Family Medicine; Visit Provider Psychiatry & Neurology Neurology | DX: R56.9 Unspecified convulsions (principal); M85.80 Other specified disorders of bone density and structure, unspecified site; G43.009 Migraine without aura, not intractable, without status migrainosus; R29.898 Other symptoms and signs involving the musculoskeletal system; F44.7 Conversion disorder with mixed symptom presentation; R13.10 Dysphagia, unspecified | CPT/HCPCS: 99215 ==

== ENCOUNTER → 2025-02-03 09:23 | Outpatient (BNVA) | payer MEDICARE, MEDICAID, SELFPAY | PROVIDERS: Referring Provider Family Medicine; Visit Provider Psychiatry & Neurology Neurology | DX: R56.9 Unspecified convulsions (principal); M85.89 Other specified disorders of bone density and structure, multiple sites; G43.009 Migraine without aura, not intractable, without status migrainosus; R29.898 Other symptoms and signs involving the musculoskeletal system; F44.7 Conversion disorder with mixed symptom presentation; R13.10 Dysphagia, unspecified; I10 Essential (primary) hypertension | CPT/HCPCS: 99215 ==

== ENCOUNTER 2025-05-06 16:37 | Outpatient (REF) | payer MEDICARE, MEDICAID, SELFPAY ==
[2025-05-06 17:01] LABS: HCT 34.0 % (36.0-46.0); HGB 11.2 g/dL (11.2-15.7); MCH 30.3 pg (27.0-33.0); MCHC 32.9 % (32.0-36.0); MCV 92 fL (80-95); MPV 11.3 fL (8.0-11.0); Platelet Count 134 10^3/uL (130-400); RBC 3.70 10^6/uL (3.93-5.22); RDW 13.2 % (11.7-14.6); RDW-SD 44.6 fL; WBC 3.20 10^3/uL (4.4-10.8)
[2025-05-06 17:25] LABS: ALT 30 U/L (14-59); AST 24 U/L (15-37); Albumin 3.6 g/dL (3.4-5.0); Alkaline Phosphatase 98 U/L (46-116); Anion Gap 8.7 mmol/L (3-11); BUN 18 mg/dL (7-18); Bilirubin, Total 0.4 mg/dL (0.2-1.0); CO2 31.3 mmol/L (21.0-32.0); Calcium 9.0 mg/dL (8.5-10.1); Chloride 100 mmol/L (98-107); Cholesterol 197 mg/dL (<200); Glucose 94 mg/dL (74-106); HDL Cholesterol 55 mg/dL (>or=50); Potassium 3.3 mmol/L (3.5-5.1); Sodium 140 mmol/L (136-145); TSH (W/Ref FT4) 2.10 uIU/mL (0.36-3.74); Total Protein 7.1 g/dL (6.4-8.2)
== END 2025-05-06 16:38 | disposition home or self-care (01) ==
LOC: NCHCN 16:37
PROVIDERS: Visit Provider Nurse Practitioner Family
DX: E07.89 Other specified disorders of thyroid (principal); R53.83 Other fatigue; I10 Essential (primary) hypertension
CPT/HCPCS: 80053; 80061; 85027; 84443